=== PATIENT | male | born 1965 ===

== ENCOUNTER 2018-07-03 14:48 | Emergency (ER) | payer MEDICAID, OTHER ==
[2018-07-03 15:12] VITALS: BP 111/73; PULSE 92; RESP 20; TEMP 98.4; O2SAT 98
[2018-07-03] MEDS ORDERED: Piperacillin/Tazobact 4.5 GM in Sodium Chloride 0.9% 100 ML IVPB STA (15:39)
[2018-07-03] MEDS ORDERED: Vancomycin 1 g Inj ONE (16:00)
[2018-07-03] MEDS ORDERED: LIDOCAINE 2% 10ML 20 MG/ML VIAL IJ STA (16:00)
[2018-07-03 16:03] LABS: BASO # 0.1 K/uL (0.0-0.2); BASO % 0.5 % (0.0-2.0); EOS # 0.1 K/uL (0.0-0.7); EOS % 0.8 % (0.0-4.0); HEMOGLOBIN 14.2 g/dL (12.0-18.0); LYMPH # 1.9 K/uL (1.0-4.3); LYMPH % 14.1 % (20.0-40.0); MEAN CELL VOLUME 89.4 fl (80.0-94.0); MEAN CORPUSCULAR HEMOGLOBIN 29.8 pg (27.0-31.0); MEAN CORPUSCULAR HGB CONC 33.3 g/dL (33.0-37.0); MEAN PLATELET VOLUME 7.4 fl (7.2-11.7); MONO # 1.2 K/uL (0.0-0.8); MONO % 9.1 % (0.0-10.0); NEUT # 9.9 K/uL (1.8-7.0); NEUT % 75.5 % (50.0-75.0); RBC 4.77 Mil/uL (4.40-5.90); RED CELL DISTRIBUTION WIDTH 12.9 % (11.5-14.5); WHITE BLOOD COUNT 13.2 K/uL (4.8-10.8)
[2018-07-03] MEDS ORDERED: Lidocaine PF 2% (5 ml) Inj (For Cardiac Arrhy) ONE (16:04)
[2018-07-03 16:11] LABS: URINE BILIRUBIN NEGATIVE (NEGATIVE); URINE BLOOD NEGATIVE (NEGATIVE); URINE CLARITY SLIGHTY-CLOUDY (Clear); URINE COLOR YELLOW (YELLOW); URINE GLUCOSE (UA) NEG (Normal); URINE LEUKOCYTE ESTERASE NEG Leu/uL (Negative); URINE PROTEIN 30 mg/dL (NEGATIVE)
[2018-07-03 16:12] LABS: ALB/GLOB RATIO 1.1 (1.0-2.1); ALBUMIN 3.8 g/dL (3.5-5.0); ALT/SGPT 34 U/L (21-72); AST/SGOT 30 U/L (17-59); BLOOD UREA NITROGEN 23 mg/dl (9-20); CALCIUM 8.8 mg/dL (8.4-10.2); GFR NON-AFRICAN AMERICAN > 60
--- NOTE | 2018-07-03 16:24 | ED PDOC ---
HPI: General Adult Time Seen by Provider: 07/03/18 15:30 Chief Complaint (Nursing): Abnormal Skin Integrity Chief Complaint (Provider): R buttock pain, drainage History Per: Patient History/Exam Limitations: no limitations Onset/Duration Of Symptoms: Days (2 weeks) Current Symptoms Are (Timing): Still Present Severity: Moderate Additional Complaint(s): 53yo male c/o pain swelling and drainage to R buttock ongoing almost 2 weeks. States had fever 102 last night. Denies rectal pain or pain w defecation. Denies weakness, other skin abscesses or history of skin problems other than hemorrhoids. Also requesting testing for prostate given urinary hesitancy and told in past has prostate issues. Denies hx HIV testing. Past Medical History Reviewed: Historical Data, Nursing Documentation, Vital Signs Vital Signs: Last Vital Signs Temp 98.4 F 07/03/18 15:12 Pulse 92 H 07/03/18 15:12 Resp 20 07/03/18 15:12 BP 111/73 07/03/18 15:12 Pulse Ox 98 07/03/18 16:26 - Medical History PMH: Benign Prostatic Hyperplasia, Hypercholesterolemia, Hyperlipidemia Denies: Chronic Kidney Disease - Surgical History Surgical History: No Surg Hx - Family History Family History: States: Unknown Family Hx - Social History Current smoker - smoking cessation education provided: Yes - Immunization History Hx Tetanus Toxoid Vaccination: Yes Hx Influenza Vaccination: No Hx Pneumococcal Vaccination: No - Home Medications Home Medications: Ambulatory Orders Medication Instructions Recorded Acetaminophen with Codeine 1 tab PO Q8H #10 tab 12/13/16 [Tylenol with Codeine No. 3 300 mg-30 mg] Docusate [Colace] 100 mg PO DAILY #10 cap 12/13/16 Hydrocortisone 2.5% (Rectal) 30 applic [place] BID #1 tube 12/13/16 [Anusol-HC] Clotrimazole 1% Cream [Lotrimin 1%] 30 applic EXT BID #1 tube 07/03/18 Ibuprofen [Motrin Tab] 600 mg PO Q6 PRN #15 tab 07/03/18 Ciprofloxacin [Cipro] 500 mg PO BID #20 tab 07/06/18 Sulfamethoxazole/Trimethoprim 1 tab PO BID #10 tab 07/06/18 [Bactrim DS 800 mg-160 mg] - Allergies Allergies/Adverse Reactions: Allergies Allergy/AdvReac Type Severity Reaction Status Date / Time Peaches Allergy ITCHING Uncoded 07/05/18 17:55 Review of Systems Constitutional: Positive for: Fever, Chills Cardiovascular: Negative for: Chest Pain Respiratory: Negative for: Shortness of Breath Gastrointestinal: Negative for: Abdominal Pain Genitourinary Male: Positive for: Frequency. Negative for: Dysuria, Hematuria, Rash, Penile Pain Musculoskeletal: Positive for: Other (buttock pain). Negative for: Neck Pain, Back Pain Skin: Positive for: Rash (buttock/ pain/ swelling). Negative for: Jaundice, Bruising Neurological: Negative for: Weakness, Numbness, Dizziness Psych: Negative for: Depression Physical Exam - Reviewed Nursing Documentation Reviewed: Yes Vital Signs Reviewed: Yes - Physical Exam Appears: Positive for: Well, Non-toxic Head Exam: Positive for: ATRAUMATIC Cardiovascular/Chest: Negative for: Tachycardia Respiratory: Negative for: Respiratory Distress Rectal: Positive for: Other (neg external hemrroids, R buttock draining 5cm area induration and tenderness no fluctuance) Extremity: Positive for: Normal ROM. Negative for: Tenderness Neurologic/Psych: Positive for: Alert, Oriented. Negative for: Motor/Sensory Deficits - Laboratory Results Result Diagrams: 07/03/18 15:58 07/03/18 15:58 - ECG O2 Sat by Pulse Oximetry: 98 Medical Decision Making Medical Decision Making: check labs, irrigate and I&D wound to probe for loculations wound culture obtained Initiate broad spectrum Abx. Check HIV status Check PSA given urinary complaints Procedures - Time-Out Type of Procedure: I&D Site of Procedure: buttock Correct Patient (with visual ID + MR# on ID Band): Yes Correct Procedure: Yes Physician Name: tirso - Incision and Drainage Blade Size: 11 I & D Procedure: betadine prep, sterile drapes applied, gauze wick placed Progress: verbal consent obtained prior to procedure lidocaine used for anesthesia wound probed to break loculations and packed, wound care check in 2 days initiate clinda Disposition - Clinical Impression Clinical Impression: Abscess of buttock, Rash - Patient ED Disposition Is Patient to be Admitted: No Counseled Patient/Family Regarding: Studies Performed, Diagnosis, Need For Followup, Rx Given - Disposition Referrals: Franco Macias MD [Staff Provider] - Disposition: Routine/Home Disposition Time: 18:30 Condition: STABLE Additional Instructions: Return for packing removal and wound check in 2 days. Take antibiotics as directed. Followup with PMD also. Cultures will return in 2 days, you may need your antibiotics adjusted. Prescriptions: Clotrimazole 1% Cream [Lotrimin 1%] 30 applic EXT BID #1 tube Ibuprofen [Motrin Tab] 600 mg PO Q6 PRN #15 tab PRN Reason: Pain, Moderate (4-7) Instructions: Abscess Incision and Drainage Forms: [facility] [employer] (Khmer)
[2018-07-03] MEDS ORDERED: Naproxen 500 MG TAB PO STA (19:29)
[2018-07-03] MEDS ORDERED: Naproxen 500 MG TAB PO ONE (19:32)
== END 2018-07-03 20:36 | disposition home or self-care (01) ==
LOC: H.ER 14:48
DX: L02.31 Cutaneous abscess of buttock (principal); R21 Rash and other nonspecific skin eruption; F17.200 Nicotine dependence, unspecified, uncomplicated; N40.1 Benign prostatic hyperplasia with lower urinary tract symptoms; E78.00 Pure hypercholesterolemia, unspecified
CPT/HCPCS: 10060; 80053; 81003; 84153; 85025; 87070; 87181; 87390; 96365; 96367; 99282; J2543

== ENCOUNTER 2018-07-05 17:40 | Inpatient (IN) | payer MEDICAID, SELFPAY ==
[2018-07-05] MEDS ORDERED: Oxycodone/Acetaminophen 5/325 mg Tab PO STA (19:00)
[2018-07-05] MEDS ORDERED: Piperacillin/Tazobact 3.375 GM in Sodium Chloride 0.9% 100 ML IV STA (19:16)
--- NOTE | 2018-07-05 19:35 | ED PDOC ---
HPI: General Adult Chief Complaint (Provider): Wound check History Per: Patient <Shilpa Meade - Last Filed: 07/05/18 19:52> <Therese Marie - Last Filed: 07/06/18 13:51> Time Seen by Provider: 07/05/18 18:30 Chief Complaint (Nursing): Abnormal Skin Integrity Additional Complaint(s): Juan M Whipple, a 53 year old male with no significant past medical history, presents to the emergency department for a wound check. Patient had an abscess incision and drainage performed by Dr. Cabral 2 days ago. Wound culture tests showed MRSA positive. Pt sent home with Clindamycin and naproxen. Additionally, Pt reports painless mass to b/l testicles that he is worried about. PMD: None provided (Rasheeda Meadeissa Eduardo) Past Medical History Reviewed: Historical Data, Nursing Documentation, Vital Signs - Medical History PMH: Benign Prostatic Hyperplasia, Hypercholesterolemia, Hyperlipidemia Denies: Chronic Kidney Disease - Family History Family History: States: Unknown Family Hx - Immunization History Hx Tetanus Toxoid Vaccination: Yes Hx Influenza Vaccination: No Hx Pneumococcal Vaccination: No <Shilpa Meade - Last Filed: 07/05/18 19:52> <Therese Marie - Last Filed: 07/06/18 13:51> Vital Signs: Last Vital Signs Temp 98.2 F 07/06/18 12:30 Pulse 76 07/06/18 12:30 Resp 18 07/06/18 12:30 BP 99/65 L 07/06/18 12:30 Pulse Ox 98 07/06/18 12:30 - Home Medications Home Medications: Ambulatory Orders Medication Instructions Recorded Acetaminophen with Codeine 1 tab PO Q8H #10 tab 12/13/16 [Tylenol with Codeine No. 3 300 mg-30 mg] Docusate [Colace] 100 mg PO DAILY #10 cap 12/13/16 Hydrocortisone 2.5% (Rectal) 30 applic [place] BID #1 tube 12/13/16 [Anusol-HC] Clotrimazole 1% Cream [Lotrimin 1%] 30 applic EXT BID #1 tube 07/03/18 Ibuprofen [Motrin Tab] 600 mg PO Q6 PRN #15 tab 07/03/18 Ciprofloxacin [Cipro] 500 mg PO BID #20 tab 07/06/18 Sulfamethoxazole/Trimethoprim 1 tab PO BID #10 tab 07/06/18 [Bactrim DS 800 mg-160 mg] - Allergies Allergies/Adverse Reactions: Allergies Allergy/AdvReac Type Severity Reaction Status Date / Time Peaches Allergy ITCHING Uncoded 07/05/18 17:55 Review of Systems ROS Statement: Except As Marked, All Systems Reviewed And Found Negative Skin: Positive for: Other (I&D preformed 2 days ago) <Rasheeda Meadeissa A - Last Filed: 07/05/18 19:52> Physical Exam - Reviewed Nursing Documentation Reviewed: Yes Vital Signs Reviewed: Yes - Physical Exam Appears: Positive for: Non-toxic, No Acute Distress Head Exam: Positive for: ATRAUMATIC, NORMAL INSPECTION, NORMOCEPHALIC Skin: Positive for: Normal Color, Warm, DRY Eye Exam: Positive for: EOMI, Normal appearance, PERRL Neck: Positive for: Normal, Painless ROM Cardiovascular/Chest: Positive for: Regular Rate, Rhythm Respiratory: Positive for: Normal Breath Sounds. Negative for: Respiratory Distress Gastrointestinal/Abdominal: Positive for: Normal Exam, Soft Neurologic/Psych: Positive for: Alert, Oriented <HeavenlyaRasheedaShilpa A - Last Filed: 07/05/18 19:52> <Therese Marie - Last Filed: 07/06/18 13:51> - Physical Exam Comments: Site of I&D is tender, erythema, packing in place and removed by provider, no drainage (Petronella,Shilpa A) - ECG O2 Sat by Pulse Oximetry: 98 (RA) Pulse Ox Interpretation: Normal <HeavenlyaShilpa A - Last Filed: 07/05/18 19:52> - Laboratory Results Result Diagrams: 07/05/18 19:50 07/05/18 19:50 <Therese Marie - Last Filed: 07/06/18 13:51> Medical Decision Making <HeavenlyaRasheedaShilpa A - Last Filed: 07/05/18 19:52> <Therese Marie - Last Filed: 07/06/18 13:51> Medical Decision Making: Time: 18:30 Initial Impression: wound check Initial Plan: --CMP --CBC w/differential --Morphine 2mg IV --Percocet 1 tab PO --Vancomycin 250 ml IV --Zosyn 100 ml IV --Blood culture Case endorsed to HAILEY Jaramillo at 1999 pending diagnostic review and re-eval Scribe Attestation: Documented by Yahaira Garcia, acting as a scribe for DUSTIN Mccall. Provider Scribe Attestation: All medical record entries made by the Scribe were at my direction and personally dictated by me. I have reviewed the chart and agree that the record accurately reflects my personal performance of the history, physical exam, medical decision making, and the department course for this patient. I have also personally directed, reviewed, and agree with the discharge instructions and disposition. (Shilpa Meade) Disposition - Patient ED Disposition Is Patient to be Admitted: Transfer of Care - Disposition Disposition: Transfer of Care Disposition Time: 19:58 <Shilpa Meade - Last Filed: 07/05/18 19:52> <Therese Marie - Last Filed: 07/06/18 13:51> - Clinical Impression Clinical Impression: Abscess, Sepsis - Disposition Condition: FAIR
[2018-07-05] MEDS ORDERED: Piperacillin/Tazobact 3.375 gm Inj IVPB ONE (20:07)
[2018-07-05] MEDS ORDERED: Vancomycin 1 g Inj ONE (20:08)
[2018-07-05 20:28] LABS: VENOUS BLOOD GAS BASE EXCESS 2.7 mmol/L (0.0-2.0); VENOUS BLOOD GAS PCO2 36 mmHg (40-60); VENOUS BLOOD GAS PO2 46 mm/Hg (30-55); VENOUS BLOOD PH 7.47 (7.32-7.43)
[2018-07-05 20:32] LABS: BASO % 0.4 % (0.0-2.0); EOS % 0.2 % (0.0-4.0); HEMOGLOBIN 14.3 g/dL (12.0-18.0); LYMPH # 1.1 K/uL (1.0-4.3); LYMPH % 10.3 % (20.0-40.0); MEAN CELL VOLUME 87.4 fl (80.0-94.0); MEAN CORPUSCULAR HEMOGLOBIN 30.4 pg (27.0-31.0); MEAN CORPUSCULAR HGB CONC 34.8 g/dL (33.0-37.0); MONO # 0.6 K/uL (0.0-0.8); MONO % 5.9 % (0.0-10.0); NEUT # 8.9 K/uL (1.8-7.0); NEUT % 83.2 % (50.0-75.0); RBC 4.7 Mil/uL (4.40-5.90); RED CELL DISTRIBUTION WIDTH 13.2 % (11.5-14.5); WHITE BLOOD COUNT 10.7 K/uL (4.8-10.8)
[2018-07-05 21:33] LABS: ALBUMIN 3.8 g/dL (3.5-5.0); ALT/SGPT 36 U/L (21-72); AST/SGOT 49 U/L (17-59); BLOOD UREA NITROGEN 19 mg/dl (9-20); CALCIUM 9.5 mg/dL (8.4-10.2); GFR AFRICAN-AMERICAN > 60; GFR NON-AFRICAN AMERICAN > 60
--- NOTE | 2018-07-05 22:10 | ED PDOC ---
- Laboratory Results Result Diagrams: 07/05/18 19:50 07/05/18 19:50 - ECG ECG: Positive for: Viewed By Me (reviewed by ED attending) ECG Rhythm: Positive for: Sinus Bradycardia (59bpm) O2 Sat by Pulse Oximetry: 98 (RA) - Radiology X-Ray: Viewed By Me X-Ray Interpretation: No Acute Disease - Progress ED Course And Treament: Case endorsed to chief writer from Deshaun HART pending labs, imaging EXAM: US Scrotum CLINICAL HISTORY: 53 years old, male; Signs and symptoms; Other: Small bump within scrotum; Additional info: Mass noted to b/l testicles by pt TECHNIQUE: Real-time ultrasound of the scrotum with color Doppler and image documentation. COMPARISON: No relevant prior studies available. FINDINGS: Right testicle: Unremarkable. No mass. No torsion. Left testicle: Unremarkable. No mass. No torsion. Epididymides: Small subcentimeter bilateral epididymal head cysts reflecting spermatoceles. Scrotum: Along the right scrotal wall, a 2.4 x 1.2 x 0.6 cm isoechoic nodule with internal hyperechoic foci at the area of interest is nonspecific. Small foci of vascularity is possible. Findings are indeterminate and neoplasm cannot be excluded. Clinical correlation recommended. Small left hydrocele. IMPRESSION: 1. Along the right scrotal wall, a 2.4 x 1.2 x 0.6 cm isoechoic nodule with internal hyperechoic foci at the area of interest is nonspecific. Small foci of vascularity is possible. Findings are indeterminate and neoplasm cannot be excluded. Clinical correlation recommended. 2. Small left hydrocele. Case discussed with Dr. Vanegas, hospitalist on-call, for admission for IV antibiotics secondary to failed outpatient treatment Disposition - Clinical Impression Clinical Impression: Abscess, Sepsis - POA Present On Arrival: None - Disposition Disposition: Admitted as In-Patient Disposition Time: 22:30 Condition: FAIR
--- NOTE | 2018-07-05 22:53 | CP.PCM.HP ---
History of Present Illness - History of Present Illness History of Present Illness: PMD: Clifford Arredondo Chief Complaint: Left Buttock Pain The patient was seen and examined in the ED with no family present HPI: 53 years old male with past medical hx of HLD, Diverticulitis, Hemorrhoides and now diagnosed 2 days ago with left Buttock abscess s/p Incision and drainage and discharged on Clindamycin. He returned to the ED today for a wound check, referring that he still has fever and chills and some pain to the region of the abscess. Results of the Blood culture drawn on grew Methicillin Resistant Staph. aureus and E. coli. He also referred painless mass to both testicles. PMH: HLD; BPH; Hemorrhoids;diverticulitis PSH: I&D of abscess to left buttock SH: Light smoker; No illegal drug use; No Alcohol FH: States: Unknown Family Hx Allergies: Cambria causes itching Medication: Reviewed Present on Admission - Present on Admission Any Indicators Present on Admission: No History of DVT/PE: No History of Uncontrolled Diabetes: No Urinary Catheter: No Decubitus Ulcer Present: No Review of Systems - Constitutional Constitutional: Chills, Fever. absent: Anorexia, Headache - EENT Eyes: Requires Corrective Lenses. absent: Blurred Vision, Floaters, Loss of Peripheral Vision Ears: absent: Decreased Hearing, Ear Discharge, Tinnitus Nose/Mouth/Throat: absent: Epistaxis, Nasal Congestion, Nasal Discharge, Sinus Pain, Sinus Pressure - Cardiovascular Cardiovascular: absent: Chest Pain, Dyspnea, Edema, Leg Edema - Respiratory Respiratory: absent: Cough, Hemoptysis, Wheezing, Stridor - Gastrointestinal Gastrointestinal: Constipation. absent: Diarrhea, Nausea, Vomiting - Genitourinary Genitourinary: absent: Dysuria, Flank Pain, Hematuria - Musculoskeletal Musculoskeletal: absent: Arthralgias, Back Pain, Muscle Weakness - Integumentary Integumentary: absent: Pruritus, Skin Ulcer, Sores, Striae, Unusual Bruising - Neurological Neurological: absent: Confusion, Dizziness, Focal Weakness, Headaches, Tingling - Psychiatric Psychiatric: absent: Anxiety, Depression, Panic Attacks - Endocrine Endocrine: absent: Palpitations, Polydipsia, Polyphagia, Polyuria - Hematologic/Lymphatic Hematologic: absent: Easy Bleeding, Easy Bruising Past Patient History - Past Medical History & Family History Past Medical History?: Yes - Past Social History Smoking Status: Light Smoker < 10 Cigarettes Daily Chewing Tobacco Use: No Cigar Use: No Alcohol: None Drugs: Denies - CARDIAC Hx Hypercholesterolemia: Yes - PULMONARY Hx Respiratory Disorders: No - NEUROLOGICAL Hx Neurological Disorder: No - HEENT Hx HEENT Problems: Yes Other/Comment: EYE GLASSES - RENAL Hx Chronic Kidney Disease: No - ENDOCRINE/METABOLIC Hx Endocrine Disorders: No - HEMATOLOGICAL/ONCOLOGICAL Hx Blood Disorders: No - INTEGUMENTARY Hx Dermatological Problems: No - MUSCULOSKELETAL/RHEUMATOLOGICAL Hx Musculoskeletal Disorders: Yes Hx Falls: Yes - GASTROINTESTINAL Hx Gastrointestinal Disorders: No - GENITOURINARY/GYNECOLOGICAL Hx Genitourinary Disorders: No - PSYCHIATRIC Hx Psychophysiologic Disorder: No Hx Substance Use: No - SURGICAL HISTORY Hx Surgeries: No - ANESTHESIA Hx Anesthesia: No Hx Anesthesia Reactions: No Hx Malignant Hyperthermia: No Meds Allergies/Adverse Reactions: Allergies Allergy/AdvReac Type Severity Reaction Status Date / Time Peaches Allergy ITCHING Uncoded 07/05/18 17:55 Physical Exam - Constitutional Appears: No Acute Distress - Head Exam Head Exam: ATRAUMATIC, NORMAL INSPECTION, NORMOCEPHALIC - Eye Exam Eye Exam: EOMI, Normal appearance Pupil Exam: NORMAL ACCOMODATION, PERRL - ENT Exam ENT Exam: Mucous Membranes Moist, Normal Exam - Neck Exam Neck exam: Positive for: Full Rom, Normal Inspection. Negative for: Lymphadenopathy, Tenderness - Respiratory Exam Respiratory Exam: Clear to Auscultation Bilateral. absent: Rales, Rhonchi, Wheezes - Cardiovascular Exam Cardiovascular Exam: REGULAR RHYTHM, RRR, +S1, +S2 - GI/Abdominal Exam GI & Abdominal Exam: Normal Bowel Sounds, Soft. absent: Mass, Organomegaly, Tenderness - Rectal Exam Additional comments: No visable external Hemorrhoids. - Extremities Exam Extremities exam: Positive for: full ROM, normal inspection. Negative for: calf tenderness, pedal edema - Back Exam Back exam: NORMAL INSPECTION. absent: CVA tenderness (L), CVA tenderness (R) - Neurological Exam Neurological exam: Alert, CN II-XII Intact, Oriented x3, Reflexes Normal - Psychiatric Exam Psychiatric exam: Normal Affect, Normal Mood - Skin Skin Exam: Dry, Warm Additional comments: Wound 1cm in length, dry, surrounded by erythema 8cm in diameter at the left buttock. The area is soft and tender to palpation. Results - Vital Signs Recent Vital Signs: Last Vital Signs Temp 99.1 F 07/05/18 22:03 Pulse 99 H 07/05/18 17:53 Resp 16 07/05/18 17:53 BP 137/72 07/05/18 17:53 Pulse Ox 98 07/05/18 22:10 - Labs Result Diagrams: 07/05/18 19:50 07/05/18 19:50 Labs: Laboratory Results - last 24 hr 07/05/18 07/05/18 07/05/18 19:50 19:50 20:20 WBC 10.7 RBC 4.70 Hgb 14.3 Hct 41.1 MCV 87.4 D MCH 30.4 MCHC 34.8 RDW 13.2 Plt Count 366 MPV 8.0 Neut % (Auto) 83.2 H Lymph % (Auto) 10.3 L Braxton % (Auto) 5.9 Eos % (Auto) 0.2 Baso % (Auto) 0.4 Neut # (Auto) 8.9 H Lymph # (Auto) 1.1 Braxton # (Auto) 0.6 Eos # (Auto) 0.0 Baso # (Auto) 0.0 pO2 46 VBG pH 7.47 H VBG pCO2 36 L VBG HCO3 26.7 VBG Total CO2 27.3 VBG O2 Sat (Calc) 79.2 H VBG Base Excess 2.7 H VBG Potassium 4.4 Glucose 89 Lactate 1.1 FiO2 21.0 Sodium 136 134.0 Potassium 4.1 Chloride 102 102.0 Carbon Dioxide 24 Anion Gap 14 BUN 19 Creatinine 0.7 L Est GFR ( Amer) > 60 Est GFR (Non-Af Amer) > 60 Random Glucose 91 Calcium 9.5 Total Bilirubin 0.4 AST 49 ALT 36 Alkaline Phosphatase 74 Total Protein 7.7 Albumin 3.8 Globulin 3.9 Albumin/Globulin Ratio 1.0 Venous Blood Potassium 4.4 - Imaging and Cardiology Scrotum US Status: Report reviewed by me Additional comment: EXAM: US Scrotum CLINICAL HISTORY: 53 years old, male; Signs and symptoms; Other: Small bump within scrotum; Additional info: Mass noted to b/l testicles by pt TECHNIQUE: Real-time ultrasound of the scrotum with color Doppler and image documentation. COMPARISON: No relevant prior studies available. FINDINGS: Right testicle: Unremarkable. No mass. No torsion. Left testicle: Unremarkable. No mass. No torsion. Epididymides: Small subcentimeter bilateral epididymal head cysts reflecting spermatoceles. Scrotum: Along the right scrotal wall, a 2.4 x 1.2 x 0.6 cm isoechoic nodule with internal hyperechoic foci at the area of interest is nonspecific. Small foci of vascularity is possible. Findings are indeterminate and neoplasm cannot be excluded. Clinical correlation recommended. Small left hydrocele. IMPRESSION: 1. Along the right scrotal wall, a 2.4 x 1.2 x 0.6 cm isoechoic nodule with internal hyperechoic foci at the area of interest is nonspecific. Small foci of vascularity is possible. Findings are indeterminate and neoplasm cannot be excluded. Clinical correlation recommended. 2. Small left hydrocele. Assessment & Plan - Assessment and Plan (Free Text) Assessment: #. MRSA Cellulitis with Abscess Plan: 53 years old male with past medical hx of HLD, Diverticulitis, Hemorrhoides and now diagnosed 2 days ago with left Buttock abscess s/p Incision and drainage and discharged on Clindamycin. He is admitted because of failure of outpatient treatment. #. MRSA Cellulitis with Abscess and failure of outpatient management - Consult ID Dr Shine - Repeat Blood Cultures - Vancomycin for The MRSA - Ciprofloxacin for the E. coli and the MRSA grown in the wound - Pain management - Wound Care nurse consult #. Internal Hemorrhoides - Stool softener - Pain management - Anusol - Sitz bath when available #. Stress Ulcer prophylaxis with Pantoprazole #. DVT Prophylaxis with Lovenox #. Code Status: Full
[2018-07-05] MEDS ORDERED: Magnesium Hydroxide Susp 30 ml UD PO PRN (23:40)
[2018-07-06] MEDS ORDERED: Pneumococcal 23-Valent Vaccine IM ONE (06:00)
--- NOTE | 2018-07-06 07:33 | CARD ---
APPROVED REPORT Date of service: 07/06/2018 <Conclusion> Sinus bradycardia Otherwise normal ECG
--- NOTE | 2018-07-06 08:24 | RAD ---
Date of service: 07/06/2018 HISTORY: admit COMPARISON: No prior. FINDINGS: LUNGS: The lungs are well inflated and clear. PLEURA: No significant pleural effusion identified, no pneumothorax apparent. CARDIOVASCULAR: Normal. OSSEOUS STRUCTURES: No significant abnormalities. VISUALIZED UPPER ABDOMEN: Normal. OTHER FINDINGS: None. IMPRESSION: No active pulmonary disease.
[2018-07-06] MEDS ORDERED: Ciprofloxacin 400mg/200ml D5W 400 MG/200 ML BAG IVPB SCH (09:00)
--- NOTE | 2018-07-06 09:34 | CP.PCM.PN ---
Subjective - Date & Time of Evaluation Date of Evaluation: 07/06/18 Time of Evaluation: 09:34 - Subjective Subjective: Patient was seen at bedside this morning, he states that overnight he didn't sleep well due to the pain that he is experiencing from lying on a 1 cm R sided gluteal abscess. He states he had a fever last night (102.7) and was given antibiotics IV( Vanc + Cipro) switched from clinda due to (Positive Cx: MRSA + Ecoli) s/p incision and drainage last week and failed outpt tx, denies fevers now, chills, or night sweats. Patient states that he has a decreased appetite, increasing gas pains, and no bowel movement for 4 days. States 1 week ago when he did have a bowel movement he remembers some blood per rectum. States he has decreased urination denies hematuria or dysuria. 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 hx of smoking crack/cocaine- no recent use, Former smoker, Denies hx of STDs, tested for HIV last week was told results were negative Objective - Vital Signs/Intake and Output Vital Signs (last 24 hours): Temp Pulse Resp BP Pulse Ox 98.2 F 70 18 105/69 97 07/06/18 08:03 07/06/18 08:03 07/06/18 08:03 07/06/18 08:03 07/06/18 08:03 - Medications Medications: Current Medications Acetaminophen (Tylenol 325mg Tab) 650 mg PO Q6 PRN PRN Reason: Pain, Mild (1-3) Last Admin: 07/06/18 01:05 Dose: 650 mg Docusate Sodium (Colace) 100 mg PO BID SALMA Enoxaparin Sodium (Lovenox) 40 mg SC DAILY SALMA PRN Reason: Protocol Hydrocortisone (Anusol-Hc) 1 applic AL BID SALMA Vancomycin HCl 1 gm/ Sodium (Chloride) 250 mls @ 166.667 mls/hr IVPB Q12 SALMA PRN Reason: Protocol Ciprofloxacin (Cipro 400mg/200ml Dsw) 400 mg in 200 mls @ 200 mls/hr IVPB Q12 SALMA PRN Reason: Protocol Ibuprofen (Motrin Tab) 600 mg PO Q6 PRN PRN Reason: Pain, severe (8-10) Ibuprofen (Motrin Tab) 400 mg PO Q6 PRN PRN Reason: Pain, moderate (4-7) Magnesium Hydroxide (Milk Of Magnesia) 30 ml PO DAILY PRN PRN Reason: Constipation Pantoprazole Sodium (Protonix Ec Tab) 40 mg PO DAILY SALMA - Labs Labs: 07/05/18 19:50 07/05/18 19:50 - Constitutional Appears: Well, Non-toxic, No Acute Distress - Head Exam Head Exam: ATRAUMATIC, NORMAL INSPECTION, NORMOCEPHALIC - Eye Exam Eye Exam: EOMI, Normal appearance - ENT Exam ENT Exam: Mucous Membranes Moist - Neck Exam Neck Exam: Full ROM, Normal Inspection - Respiratory Exam Respiratory Exam: Clear to Ausculation Bilateral, NORMAL BREATHING PATTERN - Cardiovascular Exam Cardiovascular Exam: REGULAR RHYTHM, +S1, +S2 - GI/Abdominal Exam GI & Abdominal Exam: Soft, Normal Bowel Sounds - Rectal Exam Additional comments: No External hemorrhoids noted - Extremities Exam Extremities Exam: Full ROM, Normal Inspection - Neurological Exam Neurological Exam: Alert, Awake, Oriented x3 - Psychiatric Exam Psychiatric exam: Normal Affect - Skin Skin Exam: Erythema, Warm (R gluteal abscess pink, warm to touch, no induration or purulent drainage. Area around abscess slightly erythmatous.) Assessment and Plan (1) Abscess of buttock Assessment & Plan: -Infectious Disease will see Pt today Dr. Shine. -Gave patient Rx for Cipro and Bactrium to contintue as Outpt -D/C today patient doing well -Gave Pt ER precautions if Fever comes back Status: Acute (2) Internal hemorrhoid Assessment & Plan: - Gave patient Milk of Magnesia - SITS baths - Avoid medications that can cause constipation such as opiates - Increase fiber intake, prune juice, decrease fried fatty foods - Stool softener- Docustate - Follow up with surgical team in clinic Dr. Arredondo Status: Acute (3) DVT prophylaxis Assessment & Plan: - Lovenox Status: Acute
[2018-07-06] MEDS: Pantoprazole 40 mg EC Tab PO SCH (09:49)
[2018-07-06] MEDS: Enoxaparin 40 mg Syringe SC SCH (09:49)
--- NOTE | 2018-07-06 11:36 | US ---
Date of service: 07/05/2018 HISTORY: mass noted to b/l testicles by PT TECHNIQUE: Realtime sonography through the scrotum with color and doppler flow. COMPARISON: None Available. FINDINGS: RIGHT TESTICLE: Measures 4.1 x 2.8 x 2.0 cm. Normal echotexture and flow. RIGHT EPIDIDYMIS: Epididymal head measures 0.8 x 1.0 x 0.8 cm. There is a 2 x 3 x 3 mm simple cyst in the head of the epididymis and 9 x 8 x 8 mm cyst with internal echoes in the head of the epididymis. The remaining epididymis is normal in 3.8 x 2.9 x 2.0 appearance with normal flow. LEFT TESTICLE: Measures cm. Normal echotexture and flow. LEFT EPIDIDYMIS: Epididymal head measures 1.0 x 0.7 x 0.6 cm. There are 2 subcentimeter simple cysts, the larger measures 2 x 2 x 2 mm. Grossly unremarkable appearance with normal flow. HYDROCELE: None. VARICOCELE: None. OTHER FINDINGS: There is a 2.4 x 1.2 x 0.6 cm well-circumscribed ovoid hypoechoic nodule with smooth margins without central flow on color Doppler imaging in the right scrotal wall at the site of clinically palpable lump. IMPRESSION: 1. 2.4 x 1.2 x 0.6 cm nodule in the right scrotal wall at the site of clinically palpable lump is nonspecific, the differential considerations include chronic inflammatory pseudotumor, fibrous tumor, benign and malignant neoplasms. Histopathologic correlation is advised. 2. No evidence for testicular mass or torsion. 3. Subcentimeter cyst in the head of both epididymis, the largest complicated cyst on the right measures 9 mm. A preliminary report was provided by [facility].
[2018-07-06] MEDS: Hydrocortisone 2.5% (Rectal) CREAM PR SCH ×2 (12:23→17:37)
[2018-07-06 14:00] LABS: BASO % 0.5 % (0.0-2.0); EOS % 0.5 % (0.0-4.0); LYMPH # 1.3 K/uL (1.0-4.3); LYMPH % 14.2 % (20.0-40.0); MEAN CELL VOLUME 88.3 fl (80.0-94.0); MEAN CORPUSCULAR HEMOGLOBIN 29.8 pg (27.0-31.0); MEAN CORPUSCULAR HGB CONC 33.8 g/dL (33.0-37.0); MEAN PLATELET VOLUME 7.7 fl (7.2-11.7); MONO # 0.6 K/uL (0.0-0.8); MONO % 6.4 % (0.0-10.0); NEUT # 7.2 K/uL (1.8-7.0); NEUT % 78.4 % (50.0-75.0); RBC 4.37 Mil/uL (4.40-5.90); RED CELL DISTRIBUTION WIDTH 12.7 % (11.5-14.5); WHITE BLOOD COUNT 9.2 K/uL (4.8-10.8)
--- NOTE | 2018-07-06 19:11 | CP.PCM.CON ---
History of Present Illness - History of Present Illness History of Present Illness: 53 years old male diagnosed 2 days ago with left Buttock abscess s/p Incision and drainage and discharged on Clindamycin. He returned to the ED today for a wound check, referring that he still has fever and chills and some pain to the region of the abscess. Results of the Blood culture drawn on grew Methicillin Resistant Staph. aureus and E. coli. He also referred painless mass to both testicles. ID consult requested for transition to oral regimen however patient having hi fever and chills at this time with benign appearing abscess site on buttock PMH: HLD; BPH; Hemorrhoids;diverticulitis PSH: I&D of abscess to left buttock SH: Light smoker; No illegal drug use; No Alcohol FH: States: Unknown Family Hx Allergies: Smyth causes itching Medication: Reviewed Review of Systems - Constitutional Constitutional: Chills, Fever. absent: Anorexia, Headache - EENT Eyes: Requires Corrective Lenses. absent: Blurred Vision, Floaters, Loss of Peripheral Vision Ears: absent: Decreased Hearing, Ear Discharge, Tinnitus Nose/Mouth/Throat: absent: Epistaxis, Nasal Congestion, Nasal Discharge, Sinus Pain, Sinus Pressure - Cardiovascular Cardiovascular: absent: Chest Pain, Dyspnea, Edema, Leg Edema - Respiratory Respiratory: absent: Cough, Hemoptysis, Wheezing, Stridor - Gastrointestinal Gastrointestinal: Constipation. absent: Diarrhea, Nausea, Vomiting - Genitourinary Genitourinary: absent: Dysuria, Flank Pain, Hematuria - Musculoskeletal Musculoskeletal: absent: Arthralgias, Back Pain, Muscle Weakness - Integumentary Integumentary: absent: Pruritus, Skin Ulcer, Sores, Striae, Unusual Bruising - Neurological Neurological: absent: Confusion, Dizziness, Focal Weakness, Headaches, Tingling - Psychiatric Psychiatric: absent: Anxiety, Depression, Panic Attacks - Endocrine Endocrine: absent: Palpitations, Polydipsia, Polyphagia, Polyuria - Hematologic/Lymphatic Hematologic: absent: Easy Bleeding, Easy Bruising Past Patient History - Past Medical History & Family History Past Medical History?: Yes - Past Social History Smoking Status: Former Smoker - CARDIAC Hx Hypercholesterolemia: Yes - PULMONARY Hx Respiratory Disorders: No - NEUROLOGICAL Hx Neurological Disorder: No - HEENT Hx HEENT Problems: Yes Other/Comment: EYE GLASSES - RENAL Hx Chronic Kidney Disease: No - ENDOCRINE/METABOLIC Hx Endocrine Disorders: No - HEMATOLOGICAL/ONCOLOGICAL Hx Blood Disorders: No - INTEGUMENTARY Hx Dermatological Problems: No - MUSCULOSKELETAL/RHEUMATOLOGICAL Hx Musculoskeletal Disorders: Yes Hx Falls: Yes - GASTROINTESTINAL Hx Gastrointestinal Disorders: No - GENITOURINARY/GYNECOLOGICAL Hx Genitourinary Disorders: No - PSYCHIATRIC Hx Psychophysiologic Disorder: No Hx Substance Use: No - SURGICAL HISTORY Hx Surgeries: No - ANESTHESIA Hx Anesthesia: No Hx Anesthesia Reactions: No Hx Malignant Hyperthermia: No Meds Home Medications: Home Medication List Medication Instructions Recorded Confirmed Type Ciprofloxacin [Cipro] 500 mg PO BID #20 tab 07/06/18 Rx Sulfamethoxazole/Trimethoprim 1 tab PO BID #10 tab 07/06/18 Rx [Bactrim DS 800 mg-160 mg] Allergies/Adverse Reactions: Allergies Allergy/AdvReac Type Severity Reaction Status Date / Time [place] Allergy ITCHING Uncoded 07/05/18 17:55 - Medications Medications: Current Medications Acetaminophen (Tylenol 325mg Tab) 650 mg PO Q6 PRN PRN Reason: Pain, Mild (1-3) Last Admin: 07/06/18 18:35 Dose: 650 mg Docusate Sodium (Colace) 100 mg PO BID [facility] Last Admin: 07/06/18 17:38 Dose: Not Given Enoxaparin Sodium (Lovenox) 40 mg SC DAILY [facility] PRN Reason: Protocol Last Admin: 07/06/18 09:49 Dose: 40 mg Hydrocortisone (Anusol-Hc) 1 applic CA BID [facility] Last Admin: 07/06/18 17:37 Dose: 1 applic Vancomycin HCl 1 gm/ Sodium (Chloride) 250 mls @ 166.667 mls/hr IVPB Q12 [facility] PRN Reason: Protocol Last Admin: 07/06/18 09:48 Dose: 166.667 mls/hr Ciprofloxacin (Cipro 400mg/200ml Dsw) 400 mg in 200 mls @ 200 mls/hr IVPB Q12 [facility] PRN Reason: Protocol Last Admin: 07/06/18 12:22 Dose: 200 mls/hr Ibuprofen (Motrin Tab) 600 mg PO Q6 PRN PRN Reason: Pain, severe (8-10) Last Admin: 07/06/18 11:13 Dose: 600 mg Ibuprofen (Motrin Tab) 400 mg PO Q6 PRN PRN Reason: Pain, moderate (4-7) Magnesium Hydroxide (Milk Of Magnesia) 30 ml PO DAILY PRN PRN Reason: Constipation Last Admin: 07/06/18 09:52 Dose: 30 ml Pantoprazole Sodium (Protonix Ec Tab) 40 mg PO DAILY [facility] Last Admin: 07/06/18 09:49 Dose: 40 mg Physical Exam - Constitutional Appears: Toxic, In Acute Distress, Chronically Ill - Head Exam Head Exam: ATRAUMATIC, NORMOCEPHALIC - Eye Exam Eye Exam: PERRL - ENT Exam ENT Exam: Mucous Membranes Dry - Neck Exam Neck exam: Negative for: Lymphadenopathy - Respiratory Exam Respiratory Exam: Decreased Breath Sounds - Cardiovascular Exam Cardiovascular Exam: REGULAR RHYTHM - GI/Abdominal Exam GI & Abdominal Exam: Diminished Bowel Sounds, Distended, Soft, Tenderness. absent: Guarding, Rebound, Rigid - Rectal Exam Rectal Exam: Deferred - Exam Exam: NORMAL INSPECTION - Extremities Exam Extremities exam: Positive for: pedal pulses present. Negative for: calf tenderness, pedal edema, tenderness - Back Exam Back exam: absent: CVA tenderness (L), CVA tenderness (R) - Neurological Exam Neurological exam: Alert, CN II-XII Intact, Oriented x3, Reflexes Normal - Psychiatric Exam Psychiatric exam: Normal Mood - Skin Skin Exam: Dry Additional comments: wound appears clean and dry Results - Vital Signs Recent Vital Signs: Last Vital Signs Temp 100.8 F H 07/06/18 18:35 Pulse 97 H 07/06/18 18:23 Resp 22 07/06/18 18:23 BP 145/85 07/06/18 18:23 Pulse Ox 99 07/06/18 18:23 - Labs Result Diagrams: 07/06/18 12:45 07/05/18 19:50 Labs: Laboratory Results - last 24 hr 07/05/18 07/05/18 07/05/18 19:50 19:50 20:20 WBC 10.7 RBC 4.70 Hgb 14.3 Hct 41.1 MCV 87.4 D MCH 30.4 MCHC 34.8 RDW 13.2 Plt Count 366 MPV 8.0 Neut % (Auto) 83.2 H Lymph % (Auto) 10.3 L [place] % (Auto) 5.9 Eos % (Auto) 0.2 Baso % (Auto) 0.4 Neut # (Auto) 8.9 H Lymph # (Auto) 1.1 [place] # (Auto) 0.6 Eos # (Auto) 0.0 Baso # (Auto) 0.0 pO2 46 VBG pH 7.47 H VBG pCO2 36 L VBG HCO3 26.7 VBG Total CO2 27.3 VBG O2 Sat (Calc) 79.2 H VBG Base Excess 2.7 H VBG Potassium 4.4 Glucose 89 Lactate 1.1 FiO2 21.0 Sodium 136 134.0 Potassium 4.1 Chloride 102 102.0 Carbon Dioxide 24 Anion Gap 14 BUN 19 Creatinine 0.7 L Est GFR ( Amer) > 60 Est GFR (Non-Af Amer) > 60 Random Glucose 91 Calcium 9.5 Total Bilirubin 0.4 AST 49 ALT 36 Alkaline Phosphatase 74 Total Protein 7.7 Albumin 3.8 Globulin 3.9 Albumin/Globulin Ratio 1.0 Venous Blood Potassium 4.4 07/06/18 12:45 WBC 9.2 RBC 4.37 L Hgb 13.0 Hct 38.6 MCV 88.3 MCH 29.8 MCHC 33.8 RDW 12.7 Plt Count 368 MPV 7.7 Neut % (Auto) 78.4 H Lymph % (Auto) 14.2 L [place] % (Auto) 6.4 Eos % (Auto) 0.5 Baso % (Auto) 0.5 Neut # (Auto) 7.2 H Lymph # (Auto) 1.3 [place] # (Auto) 0.6 Eos # (Auto) 0.0 Baso # (Auto) 0.0 pO2 VBG pH VBG pCO2 VBG HCO3 VBG Total CO2 VBG O2 Sat (Calc) VBG Base Excess VBG Potassium Glucose Lactate FiO2 Sodium Potassium Chloride Carbon Dioxide Anion Gap BUN Creatinine Est GFR ( Amer) Est GFR (Non-Af Amer) Random Glucose Calcium Total Bilirubin AST ALT Alkaline Phosphatase Total Protein Albumin Globulin Albumin/Globulin Ratio Venous Blood Potassium Assessment & Plan (1) Sepsis Status: Acute (2) Abscess of buttock Status: Acute (3) Failure of outpatient treatment Status: Acute - Assessment and Plan (Free Text) Assessment: persitent fever s/p drainage of abscess while on appropriate IV antibiotics consider occult abscess drug fever and malignancy less likely recc: repeat blood cultures if fever persists consider CT abd/ pelvis, echocardiogram, eval
[2018-07-06] MEDS: Ciprofloxacin 400mg/200ml D5W 400 MG/200 ML BAG IVPB SCH (22:42)
[2018-07-07 06:25] LABS: SQUAMOUS EPITHIAL < 1 /hpf (0-5); URINE BILIRUBIN NEGATIVE (NEGATIVE); URINE BLOOD SMALL (NEGATIVE); URINE CLARITY SLIGHTY-CLOUDY (Clear); URINE COLOR YELLOW (YELLOW); URINE GLUCOSE (UA) NEG (Normal); URINE LEUKOCYTE ESTERASE NEG Leu/uL (Negative); URINE PROTEIN NEGATIVE (NEGATIVE); URINE UROBILINOGEN 0.2-1.0 mg/dL (0.2-1.0)
--- NOTE | 2018-07-07 08:13 | CP.PCM.PN ---
<DenisGloria - Last Filed: 07/07/18 11:39> Subjective - Date & Time of Evaluation Date of Evaluation: 07/07/18 Time of Evaluation: 08:13 - Subjective Subjective: Patient was seen at bedside this morning, he states that overnight he didn't sleep well, at 6:30pm he spiked a fever, had shaking, chills, and confusion. T: 100.8, denies any spiked fevers, chills, shaking this morning (T. 97.9). Patient has a decreased appetite denies any nausea or vomiting. Patient complains of a new elevated pimple located on the mid sacrum above the current 1cm R gluteal abscess which was warm and painful to touch. Patient also complains of painful hemorrhoids. Currently on antibiotics IV( Vanc- + Cipro) ( Positive Cx: MRSA + Ecoli), Blood Cx- pending. 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 hx of smoking crack/cocaine- no recent use, Former smoker, Denies hx of STDs, tested for HIV -neg Objective - Vital Signs/Intake and Output Vital Signs (last 24 hours): Temp Pulse Resp BP Pulse Ox 97.9 F 76 18 111/75 100 07/07/18 04:36 07/07/18 04:36 07/07/18 04:36 07/07/18 04:36 07/07/18 04:36 - Medications Medications: Current Medications Acetaminophen (Tylenol 325mg Tab) 650 mg PO Q6 PRN PRN Reason: Pain, Mild (1-3) Last Admin: 07/06/18 18:35 Dose: 650 mg Docusate Sodium (Colace) 100 mg PO BID [facility] Last Admin: 07/06/18 17:38 Dose: Not Given Enoxaparin Sodium (Lovenox) 40 mg SC DAILY [facility] PRN Reason: Protocol Last Admin: 07/06/18 09:49 Dose: 40 mg Hydrocortisone (Anusol-Hc) 1 applic [place] BID [facility] Last Admin: 07/06/18 17:37 Dose: 1 applic Ciprofloxacin (Cipro 400mg/200ml Dsw) 400 mg in 200 mls @ 200 mls/hr IVPB Q12 [facility] PRN Reason: Protocol Last Admin: 07/06/18 22:42 Dose: 200 mls/hr Vancomycin HCl 1 gm/ Sodium (Chloride) 250 mls @ 166.667 mls/hr IVPB Q12@0900, 2100 [facility] PRN Reason: Protocol Last Admin: 07/06/18 20:58 Dose: 166.667 mls/hr Ibuprofen (Motrin Tab) 600 mg PO Q6 PRN PRN Reason: Pain, severe (8-10) Last Admin: 07/06/18 11:13 Dose: 600 mg Ibuprofen (Motrin Tab) 400 mg PO Q6 PRN PRN Reason: Pain, moderate (4-7) Last Admin: 07/06/18 21:03 Dose: 400 mg Magnesium Hydroxide (Milk Of Magnesia) 30 ml PO DAILY PRN PRN Reason: Constipation Last Admin: 07/06/18 09:52 Dose: 30 ml Pantoprazole Sodium (Protonix Ec Tab) 40 mg PO DAILY [facility] Last Admin: 07/06/18 09:49 Dose: 40 mg - Labs Labs: 07/06/18 12:45 07/05/18 19:50 - Constitutional Appears: Well, Non-toxic, No Acute Distress - Head Exam Head Exam: ATRAUMATIC, NORMAL INSPECTION, NORMOCEPHALIC - Eye Exam Eye Exam: EOMI Pupil Exam: PERRL - ENT Exam ENT Exam: Mucous Membranes Moist - Neck Exam Neck Exam: Full ROM - Respiratory Exam Respiratory Exam: Clear to Ausculation Bilateral, NORMAL BREATHING PATTERN - Cardiovascular Exam Cardiovascular Exam: RRR, +S1, +S2 - GI/Abdominal Exam GI & Abdominal Exam: Soft, Normal Bowel Sounds - Rectal Exam Rectal Exam: NORMAL INSPECTION - Extremities Exam Extremities Exam: Normal Inspection - Skin Skin Exam: Erythema (1cm R gluteal abscess pink, warm to touch, no induration or purulent drainage. Area around abscess slightly erythmatous. Also has a new pimple mid sacrum- warm, hard, painful on palpation) Assessment and Plan (1) Abscess of buttock Assessment & Plan: - Infectious Dz consulted- Dr. Shine- recommends F/u blood cx tomorrow and possible CT of abdomen and pelvis. - Continue IV abx- Vanc and Cipro, monitor Vanc Trough - Monitor any changes is new sacral pimple - Monitor any fluctuations in Temp, control pain - F/u Influenza A + B, procalcitonin, CBC, BMP Urine Cx in AM Status: Acute (2) Internal hemorrhoid Assessment & Plan: -Continue Anusol 2.5% Rectally BID - Milk of Magnesian, Docusate PRN constipation - Sittz baths - Increase fiber intake, prune juice, decrease fried fatty foods - Follow up with surgical team in clinic on D/c- Dr. Arredondo Status: Acute (3) DVT prophylaxis Assessment & Plan: -Continue Lovenox - Protonix- Stress ulcer PPx Status: Acute <Daniella Rojas - Last Filed: 07/11/18 09:09> Objective - Vital Signs/Intake and Output Vital Signs (last 24 hours): Temp Pulse Resp BP Pulse Ox 97.8 F 94 H 20 101/67 98 07/10/18 16:15 07/10/18 16:15 07/10/18 16:15 07/10/18 16:15 07/10/18 16:15 - Labs Labs: 07/10/18 05:05 07/10/18 05:05 Attending/Attestation - Attestation I have personally seen and examined this patient.: Yes I have fully participated in the care of the patient.: Yes I have reviewed all pertinent clinical information, including history, physical exam and plan: Yes Notes (Text): 07/11/18 09:09 Seen, examined, and discussed with resident. Agree with findings and plan as above.
[2018-07-07] MEDS: Hydrocortisone 2.5% (Rectal) CREAM PR SCH ×2 (09:20→18:16)
[2018-07-07] MEDS: Ciprofloxacin 400mg/200ml D5W 400 MG/200 ML BAG IVPB SCH ×2 (09:20→22:01)
[2018-07-07] MEDS: Pantoprazole 40 mg EC Tab PO SCH (09:21)
[2018-07-07] MEDS: Enoxaparin 40 mg Syringe SC SCH (09:21)
[2018-07-07 11:08] LABS: BASO % 0.4 % (0.0-2.0); EOS % 0.4 % (0.0-4.0); HEMOGLOBIN 13.4 g/dL (12.0-18.0); LYMPH # 1.5 K/uL (1.0-4.3); LYMPH % 13.8 % (20.0-40.0); MEAN CELL VOLUME 89.1 fl (80.0-94.0); MEAN CORPUSCULAR HEMOGLOBIN 29.8 pg (27.0-31.0); MEAN CORPUSCULAR HGB CONC 33.4 g/dL (33.0-37.0); MEAN PLATELET VOLUME 7.3 fl (7.2-11.7); MONO # 0.6 K/uL (0.0-0.8); MONO % 5.5 % (0.0-10.0); NEUT # 8.5 K/uL (1.8-7.0); NEUT % 79.9 % (50.0-75.0); RBC 4.5 Mil/uL (4.40-5.90); RED CELL DISTRIBUTION WIDTH 12.8 % (11.5-14.5); WHITE BLOOD COUNT 10.6 K/uL (4.8-10.8)
[2018-07-07 11:16] LABS: BLOOD UREA NITROGEN 14 mg/dl (9-20); GFR AFRICAN-AMERICAN > 60; GFR NON-AFRICAN AMERICAN > 60
--- NOTE | 2018-07-07 20:12 | CP.PCM.PN ---
Subjective - Date & Time of Evaluation Date of Evaluation: 07/07/18 Time of Evaluation: 09:00 - Subjective Subjective: still spiking fevers c/o sore throat Objective - Vital Signs/Intake and Output Vital Signs (last 24 hours): Temp Pulse Resp BP Pulse Ox 98.9 F 88 20 114/72 98 07/07/18 19:48 07/07/18 19:48 07/07/18 19:48 07/07/18 19:48 07/07/18 19:48 - Medications Medications: Current Medications Acetaminophen (Tylenol 325mg Tab) 650 mg PO Q6 PRN PRN Reason: Pain, Mild (1-3) Last Admin: 07/06/18 18:35 Dose: 650 mg Acetaminophen (Tylenol 325mg Tab) 650 mg PO Q6 PRN PRN Reason: Temperature Last Admin: 07/07/18 18:18 Dose: 650 mg Benzocaine/Menthol (Cepacol Sore Throat) 1 jaziel PO Q3 PRN PRN Reason: Sore Throat Docusate Sodium (Colace) 100 mg PO BID [facility] Last Admin: 07/07/18 18:20 Dose: Not Given Enoxaparin Sodium (Lovenox) 40 mg SC DAILY [facility] PRN Reason: Protocol Last Admin: 07/07/18 09:21 Dose: 40 mg Hydrocortisone (Anusol-Hc) 1 applic [place] BID [facility] Last Admin: 07/07/18 18:16 Dose: 1 applic Ciprofloxacin (Cipro 400mg/200ml Dsw) 400 mg in 200 mls @ 200 mls/hr IVPB Q12 [facility] PRN Reason: Protocol Last Admin: 07/07/18 09:20 Dose: 200 mls/hr Vancomycin HCl 1 gm/ Sodium (Chloride) 250 mls @ 166.667 mls/hr IVPB Q12@0900, 2100 [facility] PRN Reason: Protocol Last Admin: 07/07/18 09:20 Dose: 166.667 mls/hr Ibuprofen (Motrin Tab) 600 mg PO Q6 PRN PRN Reason: Pain, severe (8-10) Last Admin: 07/06/18 11:13 Dose: 600 mg Ibuprofen (Motrin Tab) 400 mg PO Q6 PRN PRN Reason: Pain, moderate (4-7) Last Admin: 07/07/18 14:55 Dose: 400 mg Magnesium Hydroxide (Milk Of Magnesia) 30 ml PO DAILY PRN PRN Reason: Constipation Last Admin: 07/06/18 09:52 Dose: 30 ml Pantoprazole Sodium (Protonix Ec Tab) 40 mg PO DAILY [facility] Last Admin: 07/07/18 09:21 Dose: 40 mg - Labs Labs: 07/07/18 10:56 07/07/18 10:54 - Constitutional Appears: Non-toxic, Chronically Ill - Head Exam Head Exam: NORMOCEPHALIC - Eye Exam Eye Exam: absent: Scleral icterus - ENT Exam ENT Exam: Mucous Membranes Dry - Neck Exam Neck Exam: absent: Lymphadenopathy - Respiratory Exam Respiratory Exam: Decreased Breath Sounds - Cardiovascular Exam Cardiovascular Exam: REGULAR RHYTHM - GI/Abdominal Exam GI & Abdominal Exam: Distended - Rectal Exam Rectal Exam: Deferred - Exam Exam: NORMAL INSPECTION - Extremities Exam Extremities Exam: absent: Pedal Edema - Back Exam Back Exam: absent: CVA tenderness (L), CVA tenderness (R) Assessment and Plan (1) Sepsis Status: Acute (2) Abscess of buttock Status: Acute (3) Failure of outpatient treatment Status: Acute (4) Fever and chills Status: Acute (5) Fever and chills Status: Acute - Assessment and Plan (Free Text) Assessment: consider CT Abd/pelvis to r/o occult abscess will obtain echo to r/o vegetation await cultures blood
[2018-07-07] MEDS: Benzocaine/Menthol (Cepacol) Lozenge PO PRN (22:01)
[2018-07-08] MEDS: Benzocaine/Menthol (Cepacol) Lozenge PO PRN ×5 (04:56→20:51)
[2018-07-08 07:09] LABS: BASO # 0.1 K/uL (0.0-0.2); BASO % 0.3 % (0.0-2.0); EOS % 0.1 % (0.0-4.0); HEMOGLOBIN 14.9 g/dL (12.0-18.0); LYMPH # 1.5 K/uL (1.0-4.3); MEAN CELL VOLUME 87.7 fl (80.0-94.0); MEAN CORPUSCULAR HEMOGLOBIN 30.1 pg (27.0-31.0); MEAN CORPUSCULAR HGB CONC 34.3 g/dL (33.0-37.0); MEAN PLATELET VOLUME 7.5 fl (7.2-11.7); MONO # 1.4 K/uL (0.0-0.8); MONO % 8.4 % (0.0-10.0); NEUT # 13.6 K/uL (1.8-7.0); NEUT % 82.2 % (50.0-75.0); PLATELET COUNT 482 K/uL (130-400); RBC 4.96 Mil/uL (4.40-5.90); RED CELL DISTRIBUTION WIDTH 12.7 % (11.5-14.5); WHITE BLOOD COUNT 16.5 K/uL (4.8-10.8)
[2018-07-08 07:14] LABS: BLOOD UREA NITROGEN 15 mg/dl (9-20); CALCIUM 9.8 mg/dL (8.4-10.2); GFR AFRICAN-AMERICAN > 60; GFR NON-AFRICAN AMERICAN > 60
[2018-07-08] MEDS ORDERED: Iohexol 240 (50 ml) PO ONE (08:23)
--- NOTE | 2018-07-08 08:26 | CP.PCM.PN ---
Subjective - Date & Time of Evaluation Date of Evaluation: 07/08/18 Time of Evaluation: 10:45 - Subjective Subjective: Patient seen bedside. Complains of pain on the left arm deltoid muscle area where he had received Pneumococcus vacine injection 07/06 .As per patient pain to the arm is worse than perirectal discomfort and that he hardly can move the arm due to pain. Area appears red and a little swollen. Tmax 103 WBC 16.5 Procalcitonin 0.07 Objective - Vital Signs/Intake and Output Vital Signs (last 24 hours): Temp Pulse Resp BP Pulse Ox 98.2 F 82 18 115/71 100 07/08/18 05:00 07/08/18 05:00 07/08/18 05:00 07/08/18 05:00 07/08/18 05:00 - Medications Medications: Current Medications Acetaminophen (Tylenol 325mg Tab) 650 mg PO Q6 PRN PRN Reason: Pain, Mild (1-3) Last Admin: 07/06/18 18:35 Dose: 650 mg Acetaminophen (Tylenol 325mg Tab) 650 mg PO Q6 PRN PRN Reason: Temperature Last Admin: 07/07/18 23:35 Dose: 650 mg Benzocaine/Menthol (Cepacol Sore Throat) 1 jaziel PO Q3 PRN PRN Reason: Sore Throat Last Admin: 07/08/18 04:56 Dose: 1 jaziel Docusate Sodium (Colace) 100 mg PO BID [facility] Last Admin: 07/07/18 18:20 Dose: Not Given Enoxaparin Sodium (Lovenox) 40 mg SC DAILY [facility] PRN Reason: Protocol Last Admin: 07/07/18 09:21 Dose: 40 mg Hydrocortisone (Anusol-Hc) 1 applic [place] BID [facility] Last Admin: 07/07/18 18:16 Dose: 1 applic Ciprofloxacin (Cipro 400mg/200ml Dsw) 400 mg in 200 mls @ 200 mls/hr IVPB Q12 [facility] PRN Reason: Protocol Last Admin: 07/07/18 22:01 Dose: 200 mls/hr Vancomycin HCl 1 gm/ Sodium (Chloride) 250 mls @ 166.667 mls/hr IVPB Q12@0900, 2100 [facility] PRN Reason: Protocol Last Admin: 07/07/18 23:21 Dose: 166.667 mls/hr Ibuprofen (Motrin Tab) 600 mg PO Q6 PRN PRN Reason: Pain, severe (8-10) Last Admin: 07/08/18 00:34 Dose: 600 mg Ibuprofen (Motrin Tab) 400 mg PO Q6 PRN PRN Reason: Pain, moderate (4-7) Last Admin: 07/07/18 14:55 Dose: 400 mg Iohexol (Omnipaque 240 (50 Ml)) 50 ml PO ONCE ONE Stop: 07/08/18 08:24 Magnesium Hydroxide (Milk Of Magnesia) 30 ml PO DAILY PRN PRN Reason: Constipation Last Admin: 07/06/18 09:52 Dose: 30 ml Pantoprazole Sodium (Protonix Ec Tab) 40 mg PO DAILY [facility] Last Admin: 07/07/18 09:21 Dose: 40 mg - Labs Labs: 07/08/18 06:12 07/08/18 06:12 - Constitutional Appears: No Acute Distress - Head Exam Head Exam: ATRAUMATIC, NORMAL INSPECTION, NORMOCEPHALIC - Eye Exam Eye Exam: EOMI, Normal appearance, PERRL Pupil Exam: NORMAL ACCOMODATION - ENT Exam ENT Exam: Mucous Membranes Moist, Normal Exam - Neck Exam Neck Exam: Full ROM, Normal Inspection - Respiratory Exam Respiratory Exam: Clear to Ausculation Bilateral, NORMAL BREATHING PATTERN. absent: Rales, Rhonchi, Wheezes - Cardiovascular Exam Cardiovascular Exam: REGULAR RHYTHM, RRR, +S1, +S2. absent: JVD - GI/Abdominal Exam GI & Abdominal Exam: Soft, Normal Bowel Sounds. absent: Distended, Guarding, Tenderness, Rebound - Rectal Exam Additional comments: left buttock 3x 3 cm area of redness and tenderness, small open area kin the midlle from I& D with no drainage - Extremities Exam Extremities Exam: Normal Capillary Refill. absent: Calf Tenderness, Pedal Edema Additional comments: left arm deltoid area 2x2 cm area of redness and tenderness , swollen - Back Exam Back Exam: NORMAL INSPECTION - Neurological Exam Neurological Exam: Alert, Awake, CN II-XII Intact, Oriented x3 - Psychiatric Exam Psychiatric exam: Normal Affect, Normal Mood - Skin Skin Exam: Dry, Warm Assessment and Plan - Assessment and Plan (Free Text) Assessment: 53 years old male with past medical hx of HLD, Diverticulitis, Hemorrhoides and now diagnosed 2 days ago with left Buttock abscess s/p Incision and drainage and discharged on Clindamycin. He returned to the ED for a wound check, referring that he still has fever and chills and some pain to the region of the abscess. Results of the Blood culture drawn on 07/03/18 grew Methicillin Resistant Staph. aureus and wound cx positive for E. coli and MRSA . He also referred painless mass to both testicles. Patient admitted for failing outpatient therapy and started on IV Vanco and Cipro. ID consulted . Patient remaining persistently febrile.Received Pneumococcus vaccine on 07/06 and left arm deltoid musckle arae apperas swollen , red and tender. 1.MRSA Bacteremia Still febrile Repeat blood cultures with no growth ID on consult Continue vanco IV Echo showed no vegetations 2. Cellulitis and Abscess of left buttock s/p I&D Wound cultures positive for MRSA and E.Coli ID on consult Still febrile Tmax 103 Continue Vanco and Cipro IV Procalcitonin 0.07 and WBC 16 K Patient had Pneumococcus vaccine on 07/06 and has redness , swelling and tenderness over the injection site. Unclear if fever is secondary to Pneumococcus vaccine f/o CT abdomen and pelvis 3.Injection site reaction left arm deltoid area where Pneumococcus vaccine is injected tenderness and redness warm compresses Tylenol PRN 4. Internal hemorrhoid Anusol 2.5% Rectally BID Milk of Magnesian, Docusate PRN constipation Sittz baths Increase fiber intake, prune juice, decrease fried fatty foods Follow up with surgical team in clinic on D/c- Dr. Arredondo 5. DVT prophylaxis Lovenox
[2018-07-08 08:27] LABS: BANDS 2 % (0-2); LYMPHOCYTE 8 % (20-50); MONOCYTE 7 % (0-10); NEUTROPHIL 83 % (42-75); TOTAL CELLS COUNTED 100
[2018-07-08 09:10] LABS: PLATELET ESTIMATE NORMAL (NORMAL)
[2018-07-08] MEDS: Enoxaparin 40 mg Syringe SC SCH (09:25)
[2018-07-08] MEDS: Ciprofloxacin 400mg/200ml D5W 400 MG/200 ML BAG IVPB SCH ×2 (09:25→20:52)
[2018-07-08] MEDS: Hydrocortisone 2.5% (Rectal) CREAM PR SCH ×2 (09:26→18:07)
--- NOTE | 2018-07-08 09:57 | CARD ---
APPROVED REPORT Date of service: 07/08/2018 EXAM: Two-dimensional and M-mode echocardiogram with Doppler and color Doppler. Other Information Quality : FairRhythm : Tachycardia Technically limited study due to No Parasternal window,only apical and sub xphoid windows. INDICATION Infection: 2D DIMENSIONS IVSd1.10 (0.7-1.1cm)LVDd4.23 (3.9-5.9cm) LVOT Diameter2.13 (1.8-2.4cm)PWd1.01 (0.7-1.1cm) IVSs1.16 (0.8-1.2cm)LVDs2.69 (2.5-4.0cm) FS (%) 36.6 %PWs1.31 (0.8-1.2cm) Aortic Valve AoV Peak Svaalxzm713.9cm/sAoV VTI18.9cmAO Peak GR.7mmHg LVOT Peak Jyfbdacb339.3cm/sLVOT VTI15.12cmAO Mean GR.4mmHg Mitral Valve MV E Goaavmai95.4cm/sMV DECEL [id number] A Zigtjxjp04.3cm/s MV LRD07xgH/A ratio0.8MVA (PHT)3.74cm2 TDI Lateral E' Peak V11.90cm/sMedial E' Peak V8.15cm/sE/Lateral E'4.7 E/Medial E'6.8 LEFT VENTRICLE The left ventricle is normal size. There is normal left ventricular wall thickness. The left ventricular ejection fraction is within the normal range. The Ejection Fraction is 60%. No regional wall motion abnormalities noted.. The left ventricular diastolic function is normal. No left ventricle thrombus noted on this study. There is no ventricular septal defect visualized. There is no mass noted in the left ventricle. RIGHT VENTRICLE The right ventricle is normal size. There is normal right ventricular wall thickness. The right ventricular systolic function is normal. ATRIA The left atrium size is normal. The right atrium size is normal. The interatrial septum is intact with no evidence for an atrial septal defect. AORTIC VALVE The aortic valve is normal in structure. No aortic regurgitation is present. There is no aortic valvular stenosis. MITRAL VALVE The mitral valve is normal in structure. There is no mitral valve stenosis. There is no mitral valve regurgitation noted. TRICUSPID VALVE The tricuspid valve is normal in structure. There is no tricuspid valve regurgitation noted. PULMONIC VALVE The pulmonary valve is normal in structure. There is no pulmonic valvular regurgitation. GREAT VESSELS The aortic root is normal in size. The ascending aorta is normal in size. The pulmonary artery is normal. The IVC is normal in size and collapses >50% with inspiration. PERICARDIAL EFFUSION There is no pericardial effusion. <Conclusion> Normal transthoracic echocardiogram. The Ejection Fraction is 60%. No evidence of valvular vegetation
[2018-07-08] MEDS ORDERED: Sodium Chloride 0.9% 50 ML IV ONE (12:56)
[2018-07-08] MEDS ORDERED: Iohexol 300 100 ML IJ ONE (12:56)
[2018-07-08] MEDS: Pantoprazole 40 mg EC Tab PO SCH (14:02)
[2018-07-08 16:29] LABS: IMMUNOGLOBULIN M 70.6 mg/dL (40.0-230.0)
[2018-07-08 16:31] LABS: COMPLEMENT C4 55.1 mg/dL (14.0-44.0)
--- NOTE | 2018-07-08 17:52 | CT ---
Date of service: 07/08/2018 PROCEDURE: CT Abdomen and Pelvis with contrast HISTORY: r/o pelvic abscess COMPARISON: 12/15/2016 CT pelvis TECHNIQUE: Contrast dose: 90 cc Omnipaque 300 Radiation dose: Total exam DLP = 339.58 mGy-cm. This CT exam was performed using one or more of the following dose reduction techniques: Automated exposure control, adjustment of the mA and/or kV according to patient size, and/or use of iterative reconstruction technique. FINDINGS: LOWER THORAX: Right lower lobe linear scar/atelectasis. LIVER: Unremarkable. No gross lesion or ductal dilatation. GALLBLADDER AND BILE DUCTS: Unremarkable. PANCREAS: Unremarkable. No gross lesion or ductal dilatation. SPLEEN: Unremarkable. ADRENALS: Unremarkable. No mass. KIDNEYS AND URETERS: Unremarkable. No hydronephrosis. No solid mass. VASCULATURE: Unremarkable. No aortic aneurysm. BOWEL: Sigmoid diverticulosis. No evidence of diverticulitis. No bowel obstruction. APPENDIX: Not identified. No secondary findings. PERITONEUM: Unremarkable. No free fluid. No free air. LYMPH NODES: There are shotty subcentimeter nodes seen medial to the cecum/ascending colon. This is a nonspecific finding. There is no generalized mesenteric adenopathy. No retroperitoneal or pelvic lymphadenopathy. BLADDER: Focal thickening of the left superior bladder wall with a small collection of gas within the thickened wall suspicious for an abscess, possibly resulting from the sigmoid colon. No air within the bladder lumen. This could be residual from the diverticulitis noted on 12/15/2016. REPRODUCTIVE: Normal prostate BONES: No acute fracture. OTHER FINDINGS: Focal cutaneous thickening over the right para gluteal buttock, possibly reflecting focal cellulitis. This is seen on series 3, image 185 and series 602, image 52. IMPRESSION: Focal thickening of the bladder wall of the left superior aspect with air within this thickened region of the bladder wall. Possibility of an abscess must be considered. The gas may be due to infection with a gas producing organism or communication with the sigmoid colonic lumen. Less likely is neoplasm with necrosis and communication with the sigmoid lumen or superinfection. Sigmoid diverticulosis without evidence of diverticulitis. Possible focal right medial gluteal cellulitis. See above.
[2018-07-09 05:34] LABS: HEMOGLOBIN 13.7 g/dL (12.0-18.0); MEAN CORPUSCULAR HEMOGLOBIN 30.1 pg (27.0-31.0); MEAN CORPUSCULAR HGB CONC 34.2 g/dL (33.0-37.0); RBC 4.56 Mil/uL (4.40-5.90); RED CELL DISTRIBUTION WIDTH 12.9 % (11.5-14.5); WHITE BLOOD COUNT 18.2 K/uL (4.8-10.8)
[2018-07-09 05:50] LABS: BLOOD UREA NITROGEN 14 mg/dl (9-20); CALCIUM 9.6 mg/dL (8.4-10.2); GFR AFRICAN-AMERICAN > 60; GFR NON-AFRICAN AMERICAN > 60
--- NOTE | 2018-07-09 07:31 | CP.PCM.PN ---
Subjective - Date & Time of Evaluation Date of Evaluation: 07/09/18 Time of Evaluation: 10:30 - Subjective Subjective: Patient seen and examined bedside. Complains of pain over left deltoid area where Pneumococcus vaccine was given with swelling and erythema. Still febrile Tmax 102.7 WBC trending up from 16K---18 K with chills after IV antibiotic infusion Pain to left buttock has improved Objective - Vital Signs/Intake and Output Vital Signs (last 24 hours): Temp Pulse Resp BP Pulse Ox 98.6 F 89 12 112/75 99 07/09/18 07:02 07/09/18 07:02 07/09/18 07:02 07/09/18 07:02 07/09/18 07:02 - Medications Medications: Current Medications Acetaminophen (Tylenol 325mg Tab) 650 mg PO Q6 PRN PRN Reason: Pain, Mild (1-3) Last Admin: 07/06/18 18:35 Dose: 650 mg Acetaminophen (Tylenol 325mg Tab) 650 mg PO Q6 PRN PRN Reason: Temperature Last Admin: 07/08/18 16:39 Dose: 650 mg Benzocaine/Menthol (Cepacol Sore Throat) 1 jaziel PO Q3 PRN PRN Reason: Sore Throat Last Admin: 07/08/18 20:51 Dose: 1 jaziel Docusate Sodium (Colace) 100 mg PO BID [facility] Last Admin: 07/08/18 17:40 Dose: Not Given Enoxaparin Sodium (Lovenox) 40 mg SC DAILY [facility] PRN Reason: Protocol Last Admin: 07/08/18 09:25 Dose: 40 mg Hydrocortisone (Anusol-Hc) 1 applic [place] BID [facility] Last Admin: 07/08/18 18:07 Dose: 1 applic Ciprofloxacin (Cipro 400mg/200ml Dsw) 400 mg in 200 mls @ 200 mls/hr IVPB Q12 [facility] PRN Reason: Protocol Last Admin: 07/08/18 20:52 Dose: 200 mls/hr Vancomycin HCl 1 gm/ Sodium (Chloride) 250 mls @ 166.667 mls/hr IVPB Q12@0900, 2100 [facility] PRN Reason: Protocol Last Admin: 07/08/18 20:51 Dose: 166.667 mls/hr Ibuprofen (Motrin Tab) 600 mg PO Q6 PRN PRN Reason: Pain, severe (8-10) Last Admin: 07/08/18 08:26 Dose: 600 mg Ibuprofen (Motrin Tab) 400 mg PO Q6 PRN PRN Reason: Pain, moderate (4-7) Last Admin: 07/07/18 14:55 Dose: 400 mg Magnesium Hydroxide (Milk Of Magnesia) 30 ml PO DAILY PRN PRN Reason: Constipation Last Admin: 07/06/18 09:52 Dose: 30 ml Pantoprazole Sodium (Protonix Ec Tab) 40 mg PO DAILY [facility] Last Admin: 07/08/18 14:02 Dose: 40 mg - Labs Labs: 07/09/18 04:35 07/09/18 04:35 - Constitutional Appears: Non-toxic, No Acute Distress - Head Exam Head Exam: ATRAUMATIC, NORMAL INSPECTION, NORMOCEPHALIC - Eye Exam Eye Exam: EOMI, Normal appearance, PERRL Pupil Exam: NORMAL ACCOMODATION - ENT Exam ENT Exam: Mucous Membranes Moist, Normal Exam - Neck Exam Neck Exam: Full ROM, Normal Inspection - Respiratory Exam Respiratory Exam: Clear to Ausculation Bilateral, NORMAL BREATHING PATTERN. absent: Rales, Rhonchi, Wheezes, Respiratory Distress - Cardiovascular Exam Cardiovascular Exam: REGULAR RHYTHM, RRR, +S1, +S2. absent: JVD - GI/Abdominal Exam GI & Abdominal Exam: Soft, Normal Bowel Sounds. absent: Distended, Guarding, Tenderness, Rebound - Rectal Exam Additional comments: left buttock area erythema, no fluctuation , small incision from I & D - Extremities Exam Extremities Exam: absent: Calf Tenderness, Pedal Edema Additional comments: left deltoid area 5x 5 cm ereythematous lesion , warm to touch and tender - Back Exam Back Exam: NORMAL INSPECTION - Neurological Exam Neurological Exam: Alert, Awake, CN II-XII Intact, Oriented x3 - Psychiatric Exam Psychiatric exam: Normal Affect, Normal Mood - Skin Skin Exam: Dry, Warm Assessment and Plan - Assessment and Plan (Free Text) Assessment: 53 years old male with past medical hx of HLD, Diverticulitis, Hemorrhoides and now diagnosed 2 days ago with left Buttock abscess s/p Incision and drainage and discharged on Clindamycin. He returned to the ED for a wound check, referring that he still has fever and chills and some pain to the region of the abscess. Results of the Blood culture drawn on 07/03/18 grew Methicillin Resistant Staph. aureus and wound cx positive for E. coli and MRSA . He also referred painless mass to both testicles. Patient admitted for failing outpatient therapy and started on IV Vanco and Cipro. ID consulted . Patient remaining persistently febrile.Received Pneumococcus vaccine on 07/06 and left arm deltoid muscle area appears swollen , red and tender. 1.Bacteremia ruled out since blood cultures are with no growth Still febrile Repeat blood cultures with no growth ID on consult Continue vanco IV Echo showed no vegetations 2. Cellulitis and Abscess of left buttock s/p I&D Wound cultures positive for MRSA and E.Coli ID on consult Still febrile Tmax 102 Continue Vanco and Cipro IV Procalcitonin 0.07 and WBC 16 K Patient had Pneumococcus vaccine on 07/06 and has redness , swelling and tenderness over the injection site. Unclear if fever is secondary to Pneumococcus vaccine. Will perform US of left deltoid muscle area. CT abdomen and pelvis showed :Focal thickening of the bladder wall of the left superior aspect with air within this thickened region of the bladder wall. Possibility of an abscess must be considered. The gas may be due to infection with a gas producing organism or communication with the sigmoid colonic lumen. Less likely is neoplasm with necrosis and communication with the sigmoid lumen or superinfection. Sigmoid diverticulosis without evidence of diverticulitis. Possible focal right medial gluteal cellulitis. 3.Injection site reaction left arm deltoid area where Pneumococcus vaccine is injected tenderness and redness warm compresses Tylenol PRN Will perform US to rule out abscess formation 4. Internal hemorrhoid Anusol 2.5% Rectally BID Milk of Magnesian, Docusate PRN constipation Sittz baths Increase fiber intake, prune juice, decrease fried fatty foods Follow up with surgical team in clinic on D/c- Dr. Arredondo 5. DVT prophylaxis Lovenox
[2018-07-09] MEDS: Ciprofloxacin 400mg/200ml D5W 400 MG/200 ML BAG IVPB SCH (08:50)
[2018-07-09] MEDS: Hydrocortisone 2.5% (Rectal) CREAM PR SCH ×2 (08:51→18:13)
[2018-07-09] MEDS: Benzocaine/Menthol (Cepacol) Lozenge PO PRN ×4 (08:51→22:21)
[2018-07-09] MEDS: Pantoprazole 40 mg EC Tab PO SCH (08:51)
[2018-07-09] MEDS: Enoxaparin 40 mg Syringe SC SCH (08:52)
--- NOTE | 2018-07-09 13:22 | CP.PCM.PN ---
Subjective - Date & Time of Evaluation Date of Evaluation: 07/09/18 Time of Evaluation: 07:00 - Subjective Subjective: left arm redness noted wbc trending up t max lower ct findings noted Objective - Vital Signs/Intake and Output Vital Signs (last 24 hours): Temp Pulse Resp BP Pulse Ox 99.1 F 107 H 16 141/89 97 07/09/18 12:00 07/09/18 12:00 07/09/18 12:00 07/09/18 12:00 07/09/18 12:00 - Medications Medications: Current Medications Acetaminophen (Tylenol 325mg Tab) 650 mg PO Q6 PRN PRN Reason: Pain, Mild (1-3) Last Admin: 07/06/18 18:35 Dose: 650 mg Acetaminophen (Tylenol 325mg Tab) 650 mg PO Q6 PRN PRN Reason: Temperature Last Admin: 07/08/18 16:39 Dose: 650 mg Benzocaine/Menthol (Cepacol Sore Throat) 1 jaziel PO Q3 PRN PRN Reason: Sore Throat Last Admin: 07/09/18 08:51 Dose: 1 jaziel Docusate Sodium (Colace) 100 mg PO BID [facility] Last Admin: 07/09/18 08:52 Dose: 100 mg Enoxaparin Sodium (Lovenox) 40 mg SC DAILY [facility] PRN Reason: Protocol Last Admin: 07/09/18 08:52 Dose: 40 mg Hydrocortisone (Anusol-Hc) 1 applic [place] BID [facility] Last Admin: 07/09/18 08:51 Dose: 1 applic Ciprofloxacin (Cipro 400mg/200ml Dsw) 400 mg in 200 mls @ 200 mls/hr IVPB Q12 [facility] PRN Reason: Protocol Last Admin: 07/09/18 08:50 Dose: 200 mls/hr Vancomycin HCl 1 gm/ Sodium (Chloride) 250 mls @ 166.667 mls/hr IVPB Q12@0900, 2100 [facility]MA PRN Reason: Protocol Last Admin: 07/09/18 08:50 Dose: 166.667 mls/hr Ibuprofen (Motrin Tab) 600 mg PO Q6 PRN PRN Reason: Pain, severe (8-10) Last Admin: 07/08/18 08:26 Dose: 600 mg Ibuprofen (Motrin Tab) 400 mg PO Q6 PRN PRN Reason: Pain, moderate (4-7) Last Admin: 07/07/18 14:55 Dose: 400 mg Magnesium Hydroxide (Milk Of Magnesia) 30 ml PO DAILY PRN PRN Reason: Constipation Last Admin: 07/06/18 09:52 Dose: 30 ml Pantoprazole Sodium (Protonix Ec Tab) 40 mg PO DAILY [facility] Last Admin: 07/09/18 08:51 Dose: 40 mg - Labs Labs: 07/09/18 04:35 07/09/18 04:35 - Constitutional Appears: No Acute Distress, Chronically Ill - Head Exam Head Exam: NORMOCEPHALIC - Eye Exam Eye Exam: EOMI, PERRL - ENT Exam ENT Exam: Mucous Membranes Dry - Neck Exam Neck Exam: absent: Lymphadenopathy - Respiratory Exam Respiratory Exam: Decreased Breath Sounds - Cardiovascular Exam Cardiovascular Exam: REGULAR RHYTHM - GI/Abdominal Exam GI & Abdominal Exam: Distended - Rectal Exam Rectal Exam: Deferred Assessment and Plan (1) Sepsis Status: Acute (2) Abscess of buttock Status: Acute (3) Failure of outpatient treatment Status: Acute (4) Fever and chills Status: Acute (5) Fever and chills Status: Acute - Assessment and Plan (Free Text) Assessment: CT abdomen and pelvis showed :Focal thickening of the bladder wall of the left superior aspect with air within this thickened region of the bladder wall. Possibility of an abscess must be considered. The gas may be due to infection with a gas producing organism or communication with the sigmoid colonic lumen. Less likely is neoplasm with necrosis and communication with the sigmoid lumen or superinfection. Sigmoid diverticulosis without evidence of diverticulitis. Possible focal right medial gluteal cellulitis. recommend adding anaerobic coverage consider GI and or eval
--- NOTE | 2018-07-09 17:47 | US ---
Date of service: 07/09/2018 PROCEDURE: Ultrasound soft tissue left upper arm HISTORY: left upper extremity r/o abscess COMPARISON: Not available TECHNIQUE: Targeted ultrasound examination of the lateral left upper arm was performed. FINDINGS: In the region of concern in the lateral left upper arm, at the site of recent vaccination, there is subcutaneous edema. There is no solid mass or fluid collection identified. IMPRESSION: No evidence of abscess.
[2018-07-09] MEDS: Piperacillin/Tazobact 4.5 GM in Sodium Chloride 0.9% 100 ML IVPB SCH (18:12)
[2018-07-09] MEDS ORDERED: Lidocaine 2% Jelly (Uro-Jet) TOP PRN (19:53)
--- NOTE | 2018-07-09 20:13 | CP.PCM.CON ---
History of Present Illness - History of Present Illness History of Present Illness: 53 yo male s/p I and D for abscess of buttocks readmitted with fever chills and pain at site of abscess. CT was done today of abdomen/pelvis due to persistent fever and air seen on left in bladder wall. Patient without abdominal pain. Review of Systems - Constitutional Constitutional: absent: Chills - EENT Eyes: absent: Change in Vision Ears: absent: Ear Discharge - Cardiovascular Cardiovascular: absent: Chest Pain - Respiratory Respiratory: absent: Dyspnea - Gastrointestinal Gastrointestinal: Hematochezia. absent: Abdominal Pain - Genitourinary Genitourinary: absent: Change in Urinary Stream Past Patient History - Past Medical History & Family History Past Medical History?: Yes - Past Social History Smoking Status: Former Smoker - CARDIAC Hx Hypercholesterolemia: Yes - PULMONARY Hx Respiratory Disorders: No - NEUROLOGICAL Hx Neurological Disorder: No - HEENT Hx HEENT Problems: Yes Other/Comment: EYE GLASSES - RENAL Hx Chronic Kidney Disease: No - ENDOCRINE/METABOLIC Hx Endocrine Disorders: No - HEMATOLOGICAL/ONCOLOGICAL Hx Blood Disorders: No - INTEGUMENTARY Hx Dermatological Problems: No - MUSCULOSKELETAL/RHEUMATOLOGICAL Hx Musculoskeletal Disorders: Yes Hx Falls: Yes - GASTROINTESTINAL Hx Gastrointestinal Disorders: No - GENITOURINARY/GYNECOLOGICAL Hx Genitourinary Disorders: No - PSYCHIATRIC Hx Psychophysiologic Disorder: No Hx Substance Use: No - SURGICAL HISTORY Hx Surgeries: No - ANESTHESIA Hx Anesthesia: No Hx Anesthesia Reactions: No Hx Malignant Hyperthermia: No Meds Home Medications: Home Medication List Medication Instructions Recorded Confirmed Type Ciprofloxacin [Cipro] 500 mg PO BID #20 tab 07/06/18 Rx Sulfamethoxazole/Trimethoprim 1 tab PO BID #10 tab 07/06/18 Rx [Bactrim DS 800 mg-160 mg] Allergies/Adverse Reactions: Allergies Allergy/AdvReac Type Severity Reaction Status Date / Time [place] Allergy ITCHING Uncoded 07/05/18 17:55 - Medications Medications: Current Medications Acetaminophen (Tylenol 325mg Tab) 650 mg PO Q6 PRN PRN Reason: Pain, Mild (1-3) Last Admin: 07/09/18 14:44 Dose: 650 mg Acetaminophen (Tylenol 325mg Tab) 650 mg PO Q6 PRN PRN Reason: Temperature Last Admin: 07/08/18 16:39 Dose: 650 mg Benzocaine/Menthol (Cepacol Sore Throat) 1 jaziel PO Q3 PRN PRN Reason: Sore Throat Last Admin: 07/09/18 18:13 Dose: 1 jaziel Docusate Sodium (Colace) 100 mg PO BID [facility] Last Admin: 07/09/18 18:14 Dose: Not Given Enoxaparin Sodium (Lovenox) 40 mg SC DAILY [facility] PRN Reason: Protocol Last Admin: 07/09/18 08:52 Dose: 40 mg Hydrocortisone (Anusol-Hc) 1 applic SC BID [facility] Last Admin: 07/09/18 18:13 Dose: 1 applic Piperacillin Sod/Tazobactam (Sod 4.5 gm/ Sodium Chloride) 100 mls @ 100 mls/hr IVPB Q8 [facility] PRN Reason: Protocol Last Admin: 07/09/18 18:12 Dose: 100 mls/hr Vancomycin HCl 1 gm/ Sodium (Chloride) 250 mls @ 250 mls/hr IVPB Q8H [facility] PRN Reason: Protocol Last Admin: 07/09/18 14:38 Dose: 250 mls/hr Ibuprofen (Motrin Tab) 600 mg PO Q6 PRN PRN Reason: Pain, severe (8-10) Last Admin: 07/08/18 08:26 Dose: 600 mg Ibuprofen (Motrin Tab) 400 mg PO Q6 PRN PRN Reason: Pain, moderate (4-7) Last Admin: 07/07/18 14:55 Dose: 400 mg Lidocaine HCl (Xylocaine 2% (Uro-Jet)) 1 ea TOP ONCE PRN PRN Reason: Hemorrhoids Magnesium Hydroxide (Milk Of Magnesia) 30 ml PO DAILY PRN PRN Reason: Constipation Last Admin: 07/06/18 09:52 Dose: 30 ml Pantoprazole Sodium (Protonix Ec Tab) 40 mg PO DAILY [facility] Last Admin: 07/09/18 08:51 Dose: 40 mg Physical Exam - Head Exam Head Exam: NORMAL INSPECTION - Eye Exam Eye Exam: Normal appearance - ENT Exam ENT Exam: Normal Exam - Neck Exam Neck exam: Positive for: Normal Inspection - Cardiovascular Exam Cardiovascular Exam: +S1, +S2 - GI/Abdominal Exam GI & Abdominal Exam: Normal Bowel Sounds, Soft. absent: Tenderness Additional comments: Rectal with tender swollen hemorrhoid Results - Vital Signs Recent Vital Signs: Last Vital Signs Temp 99.2 F 07/09/18 19:35 Pulse 98 H 07/09/18 19:35 Resp 20 07/09/18 19:35 BP 111/76 07/09/18 19:35 Pulse Ox 98 07/09/18 19:35 - Labs Result Diagrams: 07/09/18 04:35 07/09/18 04:35 Labs: Laboratory Results - last 24 hr 07/07/18 07/09/18 07/09/18 20:41 04:35 04:35 WBC 18.2 H RBC 4.56 Hgb 13.7 Hct 40.1 MCV 88.0 MCH 30.1 MCHC 34.2 RDW 12.9 Plt Count 405 H Sodium 137 Potassium 4.3 Chloride 100 Carbon Dioxide 30 Anion Gap 11 BUN 14 Creatinine 0.9 Est GFR ( Amer) > 60 Est GFR (Non-Af Amer) > 60 Random Glucose 105 Calcium 9.6 HIV 1&2 Antibody Screen Negative - Imaging and Cardiology CT scan - abdomen Status: Report reviewed by me CT scan - pelvis Status: Report reviewed by me Assessment & Plan (1) Abscess Assessment and Plan: Patient with fever, and divertculosis. Gas seen in left bladder wall. No clinical evidence of diverticulitis or other underlying GI diseaseto result in a fistula.Continue current abx. Will follow with you. Status: Acute
[2018-07-10] MEDS: Piperacillin/Tazobact 4.5 GM in Sodium Chloride 0.9% 100 ML IVPB SCH ×3 (01:17→18:49)
[2018-07-10 05:45] LABS: BLOOD UREA NITROGEN 15 mg/dl (9-20); CALCIUM 9.3 mg/dL (8.4-10.2); GFR AFRICAN-AMERICAN > 60; GFR NON-AFRICAN AMERICAN > 60
[2018-07-10 05:47] LABS: MEAN CELL VOLUME 88.6 fl (80.0-94.0); MEAN CORPUSCULAR HGB CONC 33.8 g/dL (33.0-37.0); RBC 4.34 Mil/uL (4.40-5.90); RED CELL DISTRIBUTION WIDTH 13.1 % (11.5-14.5); WHITE BLOOD COUNT 12.1 K/uL (4.8-10.8)
--- NOTE | 2018-07-10 07:22 | CP.PCM.DIS ---
<Venu Chavez - Last Filed: 07/10/18 07:19> Provider - Provider Date of Admission: 07/07/18 16:59 Attending physician: Trav Vanegas [facility] Course - Lab Results Lab Results: Micro Results 07/05/18 20:05 Blood-Venous Blood Culture - Preliminary NO GROWTH AFTER 4 DAYS 07/05/18 19:50 Blood-Venous Blood Culture - Preliminary NO GROWTH AFTER 4 DAYS 07/06/18 19:22 Blood Blood Culture - Preliminary NO GROWTH AFTER 3 DAYS 07/06/18 19:12 Blood Blood Culture - Preliminary NO GROWTH AFTER 3 DAYS 07/07/18 22:15 Throat Group A Strep Throat Culture - Final NO BETA STREP GROUP A ISOLATED. 07/06/18 06:19 Urine,Clean Catch Urine Culture - Final No Growth (<1,000 CFU/ML) Most Recent Lab Values WBC 12.1 K/uL (4.8-10.8) H 07/10/18 05:05 RBC 4.34 Mil/uL (4.40-5.90) L 07/10/18 05:05 Hgb 13.0 g/dL (12.0-18.0) 07/10/18 05:05 Hct 38.5 % (35.0-51.0) 07/10/18 05:05 MCV 88.6 fl (80.0-94.0) 07/10/18 05:05 MCH 30.0 pg (27.0-31.0) 07/10/18 05:05 MCHC 33.8 g/dL (33.0-37.0) 07/10/18 05:05 RDW 13.1 % (11.5-14.5) 07/10/18 05:05 Plt Count 416 K/uL (130-400) H 07/10/18 05:05 MPV 7.5 fl (7.2-11.7) 07/08/18 06:12 Neut % (Auto) 82.2 % (50.0-75.0) H 07/08/18 06:12 Lymph % (Auto) 9.0 % (20.0-40.0) L 07/08/18 06:12 [place] % (Auto) 8.4 % (0.0-10.0) 07/08/18 06:12 Eos % (Auto) 0.1 % (0.0-4.0) 07/08/18 06:12 Baso % (Auto) 0.3 % (0.0-2.0) 07/08/18 06:12 Neut # (Auto) 13.6 K/uL (1.8-7.0) H 07/08/18 06:12 Lymph # (Auto) 1.5 K/uL (1.0-4.3) 07/08/18 06:12 [place] # (Auto) 1.4 K/uL (0.0-0.8) H 07/08/18 06:12 Eos # (Auto) 0.0 K/uL (0.0-0.7) 07/08/18 06:12 Baso # (Auto) 0.1 K/uL (0.0-0.2) 07/08/18 06:12 Neutrophils % (Manual) 83 % (42-75) H 07/08/18 06:12 Band Neutrophils % 2 % (0-2) 07/08/18 06:12 Lymphocytes % (Manual) 8 % (20-50) L 07/08/18 06:12 Monocytes % (Manual) 7 % (0-10) 07/08/18 06:12 Platelet Estimate Normal (NORMAL) 07/08/18 06:12 pO2 46 mm/Hg (30-55) 07/05/18 20:20 VBG pH 7.47 (7.32-7.43) H 07/05/18 20:20 VBG pCO2 36 mmHg (40-60) L 07/05/18 20:20 VBG HCO3 26.7 mmol/L 07/05/18 20:20 VBG Total CO2 27.3 mmol/L (22-28) 07/05/18 20:20 VBG O2 Sat (Calc) 79.2 % (40-65) H 07/05/18 20:20 VBG Base Excess 2.7 mmol/L (0.0-2.0) H 07/05/18 20:20 VBG Potassium 4.4 mmol/L (3.6-5.2) 07/05/18 20:20 Sodium 134.0 mmol/L (132-148) 07/05/18 20:20 Chloride 102.0 mmol/L (98-107) 07/05/18 20:20 Glucose 89 mg/dL (75-110) 07/05/18 20:20 Lactate 1.1 mmol/L (0.7-2.1) 07/05/18 20:20 FiO2 21.0 % 07/05/18 20:20 Sodium 138 mmol/l (132-148) 07/10/18 05:05 Potassium 4.0 MMOL/L (3.6-5.0) 07/10/18 05:05 Chloride 103 mmol/L (98-107) 07/10/18 05:05 Carbon Dioxide 29 mmol/L (22-30) 07/10/18 05:05 Anion Gap 10 (10-20) 07/10/18 05:05 BUN 15 mg/dl (9-20) 07/10/18 05:05 Creatinine 0.8 mg/dl (0.8-1.5) 07/10/18 05:05 Est GFR ( Amer) > 60 07/10/18 05:05 Est GFR (Non-Af Amer) > 60 07/10/18 05:05 Random Glucose 104 mg/dL (75-110) 07/10/18 05:05 Lactic Acid 1.7 MMOL/L (0.7-2.1) 07/06/18 19:22 Calcium 9.3 mg/dL (8.4-10.2) 07/10/18 05:05 Total Bilirubin 0.4 mg/dl (0.2-1.3) 07/05/18 19:50 AST 49 U/L (17-59) 07/05/18 19:50 ALT 36 U/L (21-72) 07/05/18 19:50 Alkaline Phosphatase 74 U/L (38-126) 07/05/18 19:50 Total Protein 7.7 G/DL (6.3-8.2) 07/05/18 19:50 Albumin 3.8 g/dL (3.5-5.0) 07/05/18 19:50 Globulin 3.9 gm/dL (2.2-3.9) 07/05/18 19:50 Albumin/Globulin Ratio 1.0 (1.0-2.1) 07/05/18 19:50 Procalcitonin 0.07 NG/ML (0.19-0.49) L 07/06/18 19:22 Venous Blood Potassium 4.4 mmol/L (3.6-5.2) 07/05/18 20:20 Urine Color Yellow (YELLOW) 07/06/18 06:19 Urine Clarity Slighty-cloudy (Clear) 07/06/18 06:19 Urine pH 5.0 (5.0-8.0) 07/06/18 06:19 Ur Specific [place] 1.019 (1.003-1.030) 07/06/18 06:19 Urine Protein Negative mg/dL (NEGATIVE) 07/06/18 06:19 Urine Glucose (UA) Neg mg/dL (Normal) 07/06/18 06:19 Urine Ketones Negative mg/dL (NEGATIVE) 07/06/18 06:19 Urine Blood Small (NEGATIVE) 07/06/18 06:19 Urine Nitrate Negative (NEGATIVE) 07/06/18 06:19 Urine Bilirubin Negative (NEGATIVE) 07/06/18 06:19 Urine Urobilinogen 0.2-1.0 mg/dL (0.2-1.0) 07/06/18 06:19 Ur Leukocyte Esterase Neg [place]/uL (Negative) 07/06/18 06:19 Urine RBC (Auto) 2 /hpf (0-3) 07/06/18 06:19 Urine Microscopic WBC 1 /hpf (0-5) 07/06/18 06:19 Ur Squamous Epith Cells < 1 /hpf (0-5) 07/06/18 06:19 Vancomycin Trough 10.8 ug/mL (5.0-10.0) H 07/10/18 05:05 IgG 1390.0 mg/dL (700.0-1600.0) 07/08/18 06:12 IgA 353.0 mg/dL (70.0-400.0) 07/08/18 06:12 IgM 70.6 mg/dL (40.0-230.0) 07/08/18 06:12 Complement C3 175.0 mg/dL (88.0-165.0) H 07/08/18 06:12 Complement C4 55.1 mg/dL (14.0-44.0) H 07/08/18 06:12 HIV 1&2 Antibody Screen Negative (NEGATIVE) 07/07/18 20:41 Influenza Typ A,B (EIA) Negative for flu a/b (NEGATIVE) 07/07/18 Unknown Grp A Beta Strep Ag Negative (NEGATIVE) 07/07/18 22:15 Discharge Exam - Head Exam Head Exam: NORMAL INSPECTION Discharge Plan - Discharge Medications Prescriptions: Ciprofloxacin [Cipro] 500 mg PO BID #20 tab Sulfamethoxazole/Trimethoprim [Bactrim DS 800 mg-160 mg] 1 tab PO BID #10 tab - Follow Up Plan Condition: STABLE Disposition: HOME/ ROUTINE Instructions: Hemorrhoids, Abscess (GEN) Additional Instructions: follow up with pmd in 1 week Referrals: James Hernandez MD [Staff Provider] - <Gloria Barrios - Last Filed: 07/10/18 15:41> Provider - Provider Date of Admission: 07/07/18 16:59 Attending physician: Trav Vanegas Primary care physician: Clifford Cervantes Consults: Dr. Shine- Infectious Disease, Dr. Dickinson- GI Time Spent in preparation of Discharge (in minutes): 20 Hospital Course - Lab Results Lab Results: Micro Results 07/05/18 20:05 Blood-Venous Blood Culture - Preliminary NO GROWTH AFTER 4 DAYS 07/05/18 19:50 Blood-Venous Blood Culture - Preliminary NO GROWTH AFTER 4 DAYS 07/06/18 19:22 Blood Blood Culture - Preliminary NO GROWTH AFTER 3 DAYS 07/06/18 19:12 Blood Blood Culture - Preliminary NO GROWTH AFTER 3 DAYS 07/07/18 22:15 Throat Group A Strep Throat Culture - Final NO BETA STREP GROUP A ISOLATED. 07/06/18 06:19 Urine,Clean Catch Urine Culture - Final No Growth (<1,000 CFU/ML) Most Recent Lab Values WBC 12.1 K/uL (4.8-10.8) H 07/10/18 05:05 RBC 4.34 Mil/uL (4.40-5.90) L 07/10/18 05:05 Hgb 13.0 g/dL (12.0-18.0) 07/10/18 05:05 Hct 38.5 % (35.0-51.0) 07/10/18 05:05 MCV 88.6 fl (80.0-94.0) 07/10/18 05:05 MCH 30.0 pg (27.0-31.0) 07/10/18 05:05 MCHC 33.8 g/dL (33.0-37.0) 07/10/18 05:05 RDW 13.1 % (11.5-14.5) 07/10/18 05:05 Plt Count 416 K/uL (130-400) H 07/10/18 05:05 MPV 7.5 fl (7.2-11.7) 07/08/18 06:12 Neut % (Auto) 82.2 % (50.0-75.0) H 07/08/18 06:12 Lymph % (Auto) 9.0 % (20.0-40.0) L 07/08/18 06:12 [place] % (Auto) 8.4 % (0.0-10.0) 07/08/18 06:12 Eos % (Auto) 0.1 % (0.0-4.0) 07/08/18 06:12 Baso % (Auto) 0.3 % (0.0-2.0) 07/08/18 06:12 Neut # (Auto) 13.6 K/uL (1.8-7.0) H 07/08/18 06:12 Lymph # (Auto) 1.5 K/uL (1.0-4.3) 07/08/18 06:12 [place] # (Auto) 1.4 K/uL (0.0-0.8) H 07/08/18 06:12 Eos # (Auto) 0.0 K/uL (0.0-0.7) 07/08/18 06:12 Baso # (Auto) 0.1 K/uL (0.0-0.2) 07/08/18 06:12 Neutrophils % (Manual) 83 % (42-75) H 07/08/18 06:12 Band Neutrophils % 2 % (0-2) 07/08/18 06:12 Lymphocytes % (Manual) 8 % (20-50) L 07/08/18 06:12 Monocytes % (Manual) 7 % (0-10) 07/08/18 06:12 Platelet Estimate Normal (NORMAL) 07/08/18 06:12 pO2 46 mm/Hg (30-55) 07/05/18 20:20 VBG pH 7.47 (7.32-7.43) H 07/05/18 20:20 VBG pCO2 36 mmHg (40-60) L 07/05/18 20:20 VBG HCO3 26.7 mmol/L 07/05/18 20:20 VBG Total CO2 27.3 mmol/L (22-28) 07/05/18 20:20 VBG O2 Sat (Calc) 79.2 % (40-65) H 07/05/18 20:20 VBG Base Excess 2.7 mmol/L (0.0-2.0) H 07/05/18 20:20 VBG Potassium 4.4 mmol/L (3.6-5.2) 07/05/18 20:20 Sodium 134.0 mmol/L (132-148) 07/05/18 20:20 Chloride 102.0 mmol/L (98-107) 07/05/18 20:20 Glucose 89 mg/dL (75-110) 07/05/18 20:20 Lactate 1.1 mmol/L (0.7-2.1) 07/05/18 20:20 FiO2 21.0 % 07/05/18 20:20 Sodium 138 mmol/l (132-148) 07/10/18 05:05 Potassium 4.0 MMOL/L (3.6-5.0) 07/10/18 05:05 Chloride 103 mmol/L (98-107) 07/10/18 05:05 Carbon Dioxide 29 mmol/L (22-30) 07/10/18 05:05 Anion Gap 10 (10-20) 07/10/18 05:05 BUN 15 mg/dl (9-20) 07/10/18 05:05 Creatinine 0.8 mg/dl (0.8-1.5) 07/10/18 05:05 Est GFR ( Amer) > 60 07/10/18 05:05 Est GFR (Non-Af Amer) > 60 07/10/18 05:05 Random Glucose 104 mg/dL (75-110) 07/10/18 05:05 Lactic Acid 1.7 MMOL/L (0.7-2.1) 07/06/18 19:22 Calcium 9.3 mg/dL (8.4-10.2) 07/10/18 05:05 Total Bilirubin 0.4 mg/dl (0.2-1.3) 07/05/18 19:50 AST 49 U/L (17-59) 07/05/18 19:50 ALT 36 U/L (21-72) 07/05/18 19:50 Alkaline Phosphatase 74 U/L (38-126) 07/05/18 19:50 Total Protein 7.7 G/DL (6.3-8.2) 07/05/18 19:50 Albumin 3.8 g/dL (3.5-5.0) 07/05/18 19:50 Globulin 3.9 gm/dL (2.2-3.9) 07/05/18 19:50 Albumin/Globulin Ratio 1.0 (1.0-2.1) 07/05/18 19:50 Procalcitonin 0.07 NG/ML (0.19-0.49) L 07/06/18 19:22 Venous Blood Potassium 4.4 mmol/L (3.6-5.2) 07/05/18 20:20 Urine Color Yellow (YELLOW) 07/06/18 06:19 Urine Clarity Slighty-cloudy (Clear) 07/06/18 06:19 Urine pH 5.0 (5.0-8.0) 07/06/18 06:19 Ur Specific [place] 1.019 (1.003-1.030) 07/06/18 06:19 Urine Protein Negative mg/dL (NEGATIVE) 07/06/18 06:19 Urine Glucose (UA) Neg mg/dL (Normal) 07/06/18 06:19 Urine Ketones Negative mg/dL (NEGATIVE) 07/06/18 06:19 Urine Blood Small (NEGATIVE) 07/06/18 06:19 Urine Nitrate Negative (NEGATIVE) 07/06/18 06:19 Urine Bilirubin Negative (NEGATIVE) 07/06/18 06:19 Urine Urobilinogen 0.2-1.0 mg/dL (0.2-1.0) 07/06/18 06:19 Ur Leukocyte Esterase Neg [place]/uL (Negative) 07/06/18 06:19 Urine RBC (Auto) 2 /hpf (0-3) 07/06/18 06:19 Urine Microscopic WBC 1 /hpf (0-5) 07/06/18 06:19 Ur Squamous Epith Cells < 1 /hpf (0-5) 07/06/18 06:19 Vancomycin Trough 10.8 ug/mL (5.0-10.0) H 07/10/18 05:05 IgG 1390.0 mg/dL (700.0-1600.0) 07/08/18 06:12 IgA 353.0 mg/dL (70.0-400.0) 07/08/18 06:12 IgM 70.6 mg/dL (40.0-230.0) 07/08/18 06:12 Complement C3 175.0 mg/dL (88.0-165.0) H 07/08/18 06:12 Complement C4 55.1 mg/dL (14.0-44.0) H 07/08/18 06:12 HIV 1&2 Antibody Screen Negative (NEGATIVE) 07/07/18 20:41 Influenza Typ A,B (EIA) Negative for flu a/b (NEGATIVE) 07/07/18 Unknown Grp A Beta Strep Ag Negative (NEGATIVE) 07/07/18 22:15 - Hospital Course Hospital Course: 53 yo male with a PMH of diverticulitis, hemorrhoids, HLD, B/L testicular nodules presented to the ED on 07/03 for 1cm Left gluteal abscess, patient was discharged home s/p incision and drainage however he failed outpt oral treatment on clindamycin. He returned to ED on 07/05/18 with fever chills and left gluteal pain. Wound cultures were positive for MRSA + Ecoli. Patient was placed on Vanc + Cipro, during the hospital course he has spiked fevers and chills however has been afebrile for >36 hours, WBC count down to 12.1 from 18.2. Echo was negative for vegetations, follow up blood cultures showed no growth. Hemorrhoid pain patient was given Xylocaine, patient can follow up with surgical team as outpatient, continue high fiber diet, Anusol, Sitz baths. Patient can be discharged today on Bactrim and Cipro. CT abdomen and pelvis showed air within bladder wall, GI was consulted to evaluate for vesicourethral fistula however no fistula was found no intervention is recommended as an in- patient, patient can follow up as an outpatient for colonoscopy. Pneumococcal vaccine on 07/06 was given in left deltoid, PT developed local cellulitis reaction, upper extremity U/S ruled out abscess, conservative therapy done ice packs and Tylenol. This morning patient is afebrile, hemodynamically stable, tolderating diet, ambulating well, denies fever, chills, night sweats, nausea, vomiting, diarrhea, hematochezia, or constipation. All patients questions were answered at bedside will continue to treat patient with prescriptions as an outpt. 1. Cellulitis and Abscess of Left Buttock -S/p- I & D, wound cultures positive for MRSA and E. Coli-Continue Oral abx Bactrim and Cipro as outpt -Bacteremia ruled out, blood cultures negative, Echo showed no vegetations, afebrile >36hours - Procalcitonin 0.07 and WBC 16 K -Return to ED if fever or chills not relieved with Tylenol 2. Internal Hemorrhoids -No bleeding, H & H stable, CT scan negative for diverticulitis, fistula or abscess -Continue Xylocaine , Anusol 2.5% Rectally BID as outpt - Educated patient on a high fiber diet, prune juice, decrease fried fatty foods , Milk of Magnesia, Docusate PRN constipation -Sittz baths -Follow up with surgical team out patient clinic- Dr. Arredondo for further management 3. Local Cellulitis Secondary to Pneumococcal Vaccine Left Deltoid - Conservative therapy- warm compresses, Tylenol PRN pain - Upper Extremity U/S ruled out abscess formation . 4. DVT Prophylaxis - Lovenox - Date & Time of H&P Date of H&P: 07/05/18 Time of H&P: 22:51 Discharge Exam - Head Exam Head Exam: NORMAL INSPECTION - Eye Exam Eye Exam: EOMI, Normal appearance, PERRL - ENT Exam ENT Exam: Mucous Membranes Moist, Normal Exam Additional comments: No thrush - Neck Exam Neck exam: Full Rom - Respiratory Exam Respiratory Exam: NORMAL BREATHING PATTERN - Cardiovascular Exam Cardiovascular Exam: RRR, +S1, +S2 - GI/Abdominal Exam GI & Abdominal Exam: Normal Bowel Sounds - Extremities Exam Additional comments: Left deltoid cellulitis slightly erythmatous, warm to touch, patient has minor tenderness on active ROM - Neurological Exam Neurological exam: Alert, CN II-XII Intact, Oriented x3 - Skin Skin Exam: Erythema Additional comments: 1cm L gluteal abscess clean, pink, no induration or purulent drainage. Discharge Plan - Follow Up Plan Patient education suggested?: Yes
--- NOTE | 2018-07-10 08:00 | CP.PCM.DIS ---
Provider - Provider Date of Admission: 07/07/18 16:59 Attending physician: Trav Vanegas Diagnosis - Discharge Diagnosis (1) Abscess of buttock Status: Acute (2) Internal hemorrhoid Status: Acute (3) DVT prophylaxis Status: Acute Hospital Course - Lab Results Lab Results: Micro Results 07/05/18 20:05 Blood-Venous Blood Culture - Preliminary NO GROWTH AFTER 4 DAYS 07/05/18 19:50 Blood-Venous Blood Culture - Preliminary NO GROWTH AFTER 4 DAYS 07/06/18 19:22 Blood Blood Culture - Preliminary NO GROWTH AFTER 3 DAYS 07/06/18 19:12 Blood Blood Culture - Preliminary NO GROWTH AFTER 3 DAYS 07/07/18 22:15 Throat Group A Strep Throat Culture - Final NO BETA STREP GROUP A ISOLATED. 07/06/18 06:19 Urine,Clean Catch Urine Culture - Final No Growth (<1,000 CFU/ML) Most Recent Lab Values WBC 12.1 K/uL (4.8-10.8) H 07/10/18 05:05 RBC 4.34 Mil/uL (4.40-5.90) L 07/10/18 05:05 Hgb 13.0 g/dL (12.0-18.0) 07/10/18 05:05 Hct 38.5 % (35.0-51.0) 07/10/18 05:05 MCV 88.6 fl (80.0-94.0) 07/10/18 05:05 MCH 30.0 pg (27.0-31.0) 07/10/18 05:05 MCHC 33.8 g/dL (33.0-37.0) 07/10/18 05:05 RDW 13.1 % (11.5-14.5) 07/10/18 05:05 Plt Count 416 K/uL (130-400) H 07/10/18 05:05 MPV 7.5 fl (7.2-11.7) 07/08/18 06:12 Neut % (Auto) 82.2 % (50.0-75.0) H 07/08/18 06:12 Lymph % (Auto) 9.0 % (20.0-40.0) L 07/08/18 06:12 [place] % (Auto) 8.4 % (0.0-10.0) 07/08/18 06:12 Eos % (Auto) 0.1 % (0.0-4.0) 07/08/18 06:12 Baso % (Auto) 0.3 % (0.0-2.0) 07/08/18 06:12 Neut # (Auto) 13.6 K/uL (1.8-7.0) H 07/08/18 06:12 Lymph # (Auto) 1.5 K/uL (1.0-4.3) 07/08/18 06:12 [place] # (Auto) 1.4 K/uL (0.0-0.8) H 07/08/18 06:12 Eos # (Auto) 0.0 K/uL (0.0-0.7) 07/08/18 06:12 Baso # (Auto) 0.1 K/uL (0.0-0.2) 07/08/18 06:12 Neutrophils % (Manual) 83 % (42-75) H 07/08/18 06:12 Band Neutrophils % 2 % (0-2) 07/08/18 06:12 Lymphocytes % (Manual) 8 % (20-50) L 07/08/18 06:12 Monocytes % (Manual) 7 % (0-10) 07/08/18 06:12 Platelet Estimate Normal (NORMAL) 07/08/18 06:12 pO2 46 mm/Hg (30-55) 07/05/18 20:20 VBG pH 7.47 (7.32-7.43) H 07/05/18 20:20 VBG pCO2 36 mmHg (40-60) L 07/05/18 20:20 VBG HCO3 26.7 mmol/L 07/05/18 20:20 VBG Total CO2 27.3 mmol/L (22-28) 07/05/18 20:20 VBG O2 Sat (Calc) 79.2 % (40-65) H 07/05/18 20:20 VBG Base Excess 2.7 mmol/L (0.0-2.0) H 07/05/18 20:20 VBG Potassium 4.4 mmol/L (3.6-5.2) 07/05/18 20:20 Sodium 134.0 mmol/L (132-148) 07/05/18 20:20 Chloride 102.0 mmol/L (98-107) 07/05/18 20:20 Glucose 89 mg/dL (75-110) 07/05/18 20:20 Lactate 1.1 mmol/L (0.7-2.1) 07/05/18 20:20 FiO2 21.0 % 07/05/18 20:20 Sodium 138 mmol/l (132-148) 07/10/18 05:05 Potassium 4.0 MMOL/L (3.6-5.0) 07/10/18 05:05 Chloride 103 mmol/L (98-107) 07/10/18 05:05 Carbon Dioxide 29 mmol/L (22-30) 07/10/18 05:05 Anion Gap 10 (10-20) 07/10/18 05:05 BUN 15 mg/dl (9-20) 07/10/18 05:05 Creatinine 0.8 mg/dl (0.8-1.5) 07/10/18 05:05 Est GFR ( Amer) > 60 07/10/18 05:05 Est GFR (Non-Af Amer) > 60 07/10/18 05:05 Random Glucose 104 mg/dL (75-110) 07/10/18 05:05 Lactic Acid 1.7 MMOL/L (0.7-2.1) 07/06/18 19:22 Calcium 9.3 mg/dL (8.4-10.2) 07/10/18 05:05 Total Bilirubin 0.4 mg/dl (0.2-1.3) 07/05/18 19:50 AST 49 U/L (17-59) 07/05/18 19:50 ALT 36 U/L (21-72) 07/05/18 19:50 Alkaline Phosphatase 74 U/L (38-126) 07/05/18 19:50 Total Protein 7.7 G/DL (6.3-8.2) 07/05/18 19:50 Albumin 3.8 g/dL (3.5-5.0) 07/05/18 19:50 Globulin 3.9 gm/dL (2.2-3.9) 07/05/18 19:50 Albumin/Globulin Ratio 1.0 (1.0-2.1) 07/05/18 19:50 Procalcitonin 0.07 NG/ML (0.19-0.49) L 07/06/18 19:22 Venous Blood Potassium 4.4 mmol/L (3.6-5.2) 07/05/18 20:20 Urine Color Yellow (YELLOW) 07/06/18 06:19 Urine Clarity Slighty-cloudy (Clear) 07/06/18 06:19 Urine pH 5.0 (5.0-8.0) 07/06/18 06:19 Ur Specific [place] 1.019 (1.003-1.030) 07/06/18 06:19 Urine Protein Negative mg/dL (NEGATIVE) 07/06/18 06:19 Urine Glucose (UA) Neg mg/dL (Normal) 07/06/18 06:19 Urine Ketones Negative mg/dL (NEGATIVE) 07/06/18 06:19 Urine Blood Small (NEGATIVE) 07/06/18 06:19 Urine Nitrate Negative (NEGATIVE) 07/06/18 06:19 Urine Bilirubin Negative (NEGATIVE) 07/06/18 06:19 Urine Urobilinogen 0.2-1.0 mg/dL (0.2-1.0) 07/06/18 06:19 Ur Leukocyte Esterase Neg [place]/uL (Negative) 07/06/18 06:19 Urine RBC (Auto) 2 /hpf (0-3) 07/06/18 06:19 Urine Microscopic WBC 1 /hpf (0-5) 07/06/18 06:19 Ur Squamous Epith Cells < 1 /hpf (0-5) 07/06/18 06:19 Vancomycin Trough 10.8 ug/mL (5.0-10.0) H 07/10/18 05:05 IgG 1390.0 mg/dL (700.0-1600.0) 07/08/18 06:12 IgA 353.0 mg/dL (70.0-400.0) 07/08/18 06:12 IgM 70.6 mg/dL (40.0-230.0) 07/08/18 06:12 Complement C3 175.0 mg/dL (88.0-165.0) H 07/08/18 06:12 Complement C4 55.1 mg/dL (14.0-44.0) H 07/08/18 06:12 HIV 1&2 Antibody Screen Negative (NEGATIVE) 07/07/18 20:41 Influenza Typ A,B (EIA) Negative for flu a/b (NEGATIVE) 07/07/18 Unknown Grp A Beta Strep Ag Negative (NEGATIVE) 07/07/18 22:15 Discharge Exam - Head Exam Head Exam: NORMAL INSPECTION Discharge Plan - Discharge Medications Prescriptions: Ciprofloxacin [Cipro] 500 mg PO BID #20 tab Sulfamethoxazole/Trimethoprim [Bactrim DS 800 mg-160 mg] 1 tab PO BID #10 tab - Follow Up Plan Condition: FAIR Disposition: HOME/ ROUTINE
--- NOTE | 2018-07-10 10:10 | CP.PCM.PN ---
Subjective - Date & Time of Evaluation Date of Evaluation: 07/10/18 Time of Evaluation: 07:40 - Subjective Subjective: GI progress note for Dr. Hernandez Pt seen and examined at bedside this AM. Patient denies any abdominal pain, nausea, vomiting, or recent blood in his stool, tolerating his diet, no urinary symptoms. Objective - Vital Signs/Intake and Output Vital Signs (last 24 hours): Temp Pulse Resp BP Pulse Ox 97.9 F 78 18 101/67 98 07/10/18 08:11 07/10/18 08:11 07/10/18 08:11 07/10/18 08:11 07/10/18 08:11 - Medications Medications: Current Medications Acetaminophen (Tylenol 325mg Tab) 650 mg PO Q6 PRN PRN Reason: Pain, Mild (1-3) Last Admin: 07/09/18 14:44 Dose: 650 mg Acetaminophen (Tylenol 325mg Tab) 650 mg PO Q6 PRN PRN Reason: Temperature Last Admin: 07/08/18 16:39 Dose: 650 mg Benzocaine/Menthol (Cepacol Sore Throat) 1 jaziel PO Q3 PRN PRN Reason: Sore Throat Last Admin: 07/09/18 22:21 Dose: 1 jaziel Docusate Sodium (Colace) 100 mg PO BID SALMA Last Admin: 07/09/18 18:14 Dose: Not Given Enoxaparin Sodium (Lovenox) 40 mg SC DAILY SALMA PRN Reason: Protocol Last Admin: 07/09/18 08:52 Dose: 40 mg Hydrocortisone (Anusol-Hc) 1 applic OR BID [facility] Last Admin: 07/09/18 18:13 Dose: 1 applic Piperacillin Sod/Tazobactam (Sod 4.5 gm/ Sodium Chloride) 100 mls @ 100 mls/hr IVPB Q8 SALMA PRN Reason: Protocol Last Admin: 07/10/18 01:17 Dose: 100 mls/hr Vancomycin HCl 1 gm/ Sodium (Chloride) 250 mls @ 250 mls/hr IVPB Q8H SALMA PRN Reason: Protocol Last Admin: 07/10/18 05:11 Dose: 250 mls/hr Ibuprofen (Motrin Tab) 600 mg PO Q6 PRN PRN Reason: Pain, severe (8-10) Last Admin: 07/09/18 22:02 Dose: 600 mg Ibuprofen (Motrin Tab) 400 mg PO Q6 PRN PRN Reason: Pain, moderate (4-7) Last Admin: 07/07/18 14:55 Dose: 400 mg Lidocaine HCl (Xylocaine 2% (Uro-Jet)) 1 ea TOP ONCE PRN PRN Reason: Hemorrhoids Magnesium Hydroxide (Milk Of Magnesia) 30 ml PO DAILY PRN PRN Reason: Constipation Last Admin: 07/06/18 09:52 Dose: 30 ml Pantoprazole Sodium (Protonix Ec Tab) 40 mg PO DAILY SALMA Last Admin: 07/09/18 08:51 Dose: 40 mg - Labs Labs: 07/10/18 05:05 07/10/18 05:05 - Constitutional Appears: Well, Non-toxic, No Acute Distress - Head Exam Head Exam: ATRAUMATIC, NORMOCEPHALIC - Eye Exam Eye Exam: Normal appearance. absent: Conjunctival injection, Scleral icterus - ENT Exam ENT Exam: Mucous Membranes Moist, Normal Oropharynx - Respiratory Exam Respiratory Exam: NORMAL BREATHING PATTERN. absent: Accessory Muscle Use, Respiratory Distress - Cardiovascular Exam Cardiovascular Exam: RRR - Extremities Exam Extremities Exam: absent: Calf Tenderness, Pedal Edema, Tenderness - Neurological Exam Neurological Exam: Alert, Awake, Oriented x3 - Psychiatric Exam Psychiatric exam: Normal Affect, Normal Mood - Skin Skin Exam: Dry, Intact, Normal Color, Warm Assessment and Plan - Assessment and Plan (Free Text) Assessment: 53M admitted for fevers d/t recent buttock abscess with hemorrhoids and CT findings concerning for possible colovesicular fistula Plan: No clinical signs or symptoms of colovesicular fistula--no sign of diverticulitis on CT, no UTI, no abdominal pain Local lidocaine cream for hemorrhoid and recommend high fiber diet, sitz baths, and stool softeners on D/C Follow up with Dr. Hernandez in his office for possible colonoscopy--pt states he has history of colonoscopy with biopsy of lesion >5 years ago Follow up with urology for evaluation of bladder lesion, ideally prior to GI office visit No intervention or endoscopic evaluation necessary during this hospitalization if patient remains stable Discussed with Dr. Hernandez, who agrees with above Mely Holder, PGY2
[2018-07-10] MEDS: Hydrocortisone 2.5% (Rectal) CREAM PR SCH ×2 (10:37→18:48)
[2018-07-10] MEDS: Enoxaparin 40 mg Syringe SC SCH (10:40)
[2018-07-10] MEDS: Pantoprazole 40 mg EC Tab PO SCH (10:42)
[2018-07-10 15:52] VITALS: BP 101/67; PULSE 94; RESP 20; TEMP 97.8; O2SAT 98
== END 2018-07-10 19:35 | disposition home or self-care (01) | DRG 277 ==
LOC: H.ER 17:40 → INTOOBSV 22:50 → H.ERHOLD 22:50 → H.TEL 07-06 05:26 → OBSVTOIN 07-07 16:59 → H.TEL 07-07 21:48
PROVIDERS: ADMIT Internal Medicine; ATTEND Internal Medicine
PROC: 3E0234Z Introduction of Serum, Toxoid and Vaccine into Muscle, Percutaneous Approach (ICD-10-PCS; principal; 2018-07-06)
DX: L02.31 Cutaneous abscess of buttock (principal); L03.114 Cellulitis of left upper limb; T88.0XXA Infection following immunization, initial encounter; B95.62 Methicillin resistant Staphylococcus aureus infection as the cause of diseases classified elsewhere; L03.317 Cellulitis of buttock; Y84.8 Other medical procedures as the cause of abnormal reaction of the patient, or of later complication, without mention of misadventure at the time of the procedure; Y92.239 Unspecified place in hospital as the place of occurrence of the external cause; N40.0 Benign prostatic hyperplasia without lower urinary tract symptoms; N43.3 Hydrocele, unspecified; Z87.891 Personal history of nicotine dependence; J02.9 Acute pharyngitis, unspecified; E78.00 Pure hypercholesterolemia, unspecified; E78.5 Hyperlipidemia, unspecified; K57.30 Diverticulosis of large intestine without perforation or abscess without bleeding; K64.8 Other hemorrhoids; N50.9 Disorder of male genital organs, unspecified

== ENCOUNTER 2018-11-30 14:09 | Inpatient (IN) | payer MEDICAID, SELFPAY ==
[2018-11-30] MEDS ORDERED: Sodium Chloride 0.9% 1,000 ML IV STA (15:01)
[2018-11-30 15:37] LABS: VENOUS BLOOD GAS BASE EXCESS 1.4 mmol/L (0.0-2.0); VENOUS BLOOD GAS PCO2 52 mmHg (40-60); VENOUS BLOOD GAS PO2 21 mm/Hg (30-55); VENOUS BLOOD PH 7.34 (7.32-7.43)
[2018-11-30 15:50] LABS: BASO # 0.1 K/uL (0.0-0.2); BASO % 0.5 % (0.0-2.0); EOS # 0.1 K/uL (0.0-0.7); EOS % 0.8 % (0.0-4.0); HEMOGLOBIN 13.7 g/dL (12.0-18.0); LYMPH # 1.5 K/uL (1.0-4.3); LYMPH % 12.9 % (20.0-40.0); MEAN CELL VOLUME 88.1 fl (80.0-94.0); MEAN CORPUSCULAR HEMOGLOBIN 28.9 pg (27.0-31.0); MEAN CORPUSCULAR HGB CONC 32.8 g/dL (33.0-37.0); MEAN PLATELET VOLUME 8.1 fl (7.2-11.7); MONO # 0.8 K/uL (0.0-0.8); MONO % 6.8 % (0.0-10.0); NEUT # 9.2 K/uL (1.8-7.0); NRBC % 0.1 % (0.0-0.0); RBC 4.75 Mil/uL (4.40-5.90); RED CELL DISTRIBUTION WIDTH 13.3 % (11.5-14.5); WHITE BLOOD COUNT 11.7 K/uL (4.8-10.8)
[2018-11-30 15:52] LABS: SQUAMOUS EPITHIAL < 1 /hpf (0-5); URINE BILIRUBIN NEGATIVE (NEGATIVE); URINE BLOOD NEGATIVE (NEGATIVE); URINE CLARITY CLEAR (Clear); URINE COLOR YELLOW (YELLOW); URINE GLUCOSE (UA) NEG (NEGATIVE); URINE LEUKOCYTE ESTERASE NEG Leu/uL (Negative); URINE PROTEIN NEGATIVE (NEGATIVE); URINE UROBILINOGEN 0.2-1.0 mg/dL (0.2-1.0)
[2018-11-30 16:31] LABS: ALB/GLOB RATIO 1.1 (1.0-2.1); ALT/SGPT 22 U/L (21-72); AST/SGOT 25 U/L (17-59); BLOOD UREA NITROGEN 21 mg/dl (9-20); CALCIUM 9.3 mg/dL (8.4-10.2); GFR NON-AFRICAN AMERICAN > 60; LIPASE 86 U/L (23-300)
[2018-11-30] MEDS ORDERED: Morphine 4 MG/ML VIAL IV STA (17:34)
[2018-11-30] MEDS ORDERED: Morphine 4 MG/ML VIAL ONE ×2 (17:35→21:43)
[2018-11-30] MEDS ORDERED: Iohexol 300 100 ML IJ ONE (17:55)
[2018-11-30] MEDS ORDERED: Sodium Chloride 0.9% 50 ML IV ONE (17:55)
--- NOTE | 2018-11-30 18:48 | CT ---
Date of service: 11/30/2018 PROCEDURE: CT Abdomen and Pelvis with contrast HISTORY: r/o diverticulitis COMPARISON: CT abdomen pelvis with contrast performed 06/28/18 TECHNIQUE: Contrast dose: 95 mL Omnipaque 300 Radiation dose: Total exam DLP = 322.1 mGy-cm. This CT exam was performed using one or more of the following dose reduction techniques: Automated exposure control, adjustment of the mA and/or kV according to patient size, and/or use of iterative reconstruction technique. FINDINGS: LOWER THORAX: Mild bibasilar atelectasis. No visible pleural effusion or pneumothorax. Small hiatal hernia/distal esophageal wall thickening LIVER: 9 mm hepatic dome hypodensity too small to characterize. Right hepatic lobe 6 mm hepatic hypodensity, too small to characterize. GALLBLADDER AND BILE DUCTS: Unremarkable. PANCREAS: Unremarkable. SPLEEN: At least 2 sub cm probable splenules. Otherwise unremarkable unenhanced appearance. ADRENALS: Unremarkable. KIDNEYS AND URETERS: The kidneys enhance symmetrically. No hydronephrosis or obstructing calculus identified. VASCULATURE: No aortic aneurysm. No atherosclerotic calcification or mural plaque present. BOWEL: Stomach is nondistended. Lack of oral contrast limits evaluation for bowel pathology. Colonic wall thickening involving the distal left/sigmoid colon with associated inflammatory stranding consistent with acute diverticulitis. APPENDIX: The appendix appears within normal limits of caliber. No secondary signs of acute appendicitis. PERITONEUM: No significant free fluid. No definite free air. LYMPH NODES: No bulky adenopathy identified. BLADDER: Under distended urinary bladder. Asymmetric wall thickening of the urinary bladder. Focus of air within the urinary bladder. REPRODUCTIVE: The prostate gland measures approximately 3.9 x 4.8 cm. BONES: No acute osseous abnormality is detected. OTHER FINDINGS: None. IMPRESSION: Colonic wall thickening involving the distal left/sigmoid colon with associated inflammatory stranding consistent with acute diverticulitis. Focus of air within the urinary bladder with asymmetric wall thickening. Question possibility of fistulous connection to the adjacent sigmoid bowel. Infection/neoplasm considered. At least 2 hepatic hypodensities which are too small to characterize; a likely cysts or hemangiomas. Additional incidental findings as above.
--- NOTE | 2018-11-30 18:53 | ED PDOC ---
HPI: Abdomen Time Seen by Provider: 11/30/18 15:01 Chief Complaint (Nursing): Abdominal Pain Chief Complaint (Provider): abdominal pain History Per: Patient (53 y/o male here with left upper quadrant pain since last night associated with fever 103. Denies any vomiting/diarrhea/dysuria. Has otherwise had cough/cold x 1 week. ) Past Medical History Reviewed: Historical Data, Nursing Documentation, Vital Signs Vital Signs: Last Vital Signs Temp 98.8 F 11/30/18 14:43 Pulse 92 H 11/30/18 14:43 Resp 18 11/30/18 14:43 BP 130/86 11/30/18 14:43 Pulse Ox 99 11/30/18 14:43 - Medical History PMH: Benign Prostatic Hyperplasia, Hypercholesterolemia, Hyperlipidemia Denies: Chronic Kidney Disease - Family History Family History: States: Unknown Family Hx - Immunization History Hx Tetanus Toxoid Vaccination: Yes Hx Influenza Vaccination: No Hx Pneumococcal Vaccination: No - Home Medications Home Medications: Ambulatory Orders Medication Instructions Recorded Acetaminophen with Codeine 1 tab PO Q8H #10 tab 12/13/16 [Tylenol with Codeine No. 3 300 mg-30 mg] Docusate [Colace] 100 mg PO DAILY #10 cap 12/13/16 Hydrocortisone 2.5% (Rectal) 30 applic SD BID #1 tube 12/13/16 [Anusol-HC] Clotrimazole 1% Cream [Lotrimin 1%] 30 applic EXT BID #1 tube 07/03/18 Ibuprofen [Motrin Tab] 600 mg PO Q6 PRN #15 tab 07/03/18 Ciprofloxacin [Cipro] 500 mg PO BID #20 tab 07/06/18 Sulfamethoxazole/Trimethoprim 1 tab PO BID #10 tab 07/06/18 [Bactrim DS 800 mg-160 mg] - Allergies Allergies/Adverse Reactions: Allergies Allergy/AdvReac Type Severity Reaction Status Date / Time Peaches Allergy ITCHING Uncoded 07/05/18 17:55 Review of Systems ROS Statement: Except As Marked, All Systems Reviewed And Found Negative Physical Exam - Reviewed Nursing Documentation Reviewed: Yes Vital Signs Reviewed: Yes - Physical Exam Appears: Positive for: Well, Non-toxic, No Acute Distress Head Exam: Positive for: ATRAUMATIC, NORMAL INSPECTION, NORMOCEPHALIC Skin: Positive for: Normal Color, Warm, DRY Eye Exam: Positive for: EOMI, Normal appearance, PERRL ENT: Positive for: Normal ENT Inspection Neck: Positive for: Normal, Painless ROM Cardiovascular/Chest: Positive for: Regular Rate, Rhythm Respiratory: Positive for: CNT, Normal Breath Sounds Gastrointestinal/Abdominal: Positive for: Normal Exam, Soft, Tenderness (LLQ) Back: Positive for: Normal Inspection Extremity: Positive for: Normal ROM Neurologic/Psych: Positive for: Alert, Oriented - Laboratory Results Result Diagrams: 11/30/18 15:20 11/30/18 15:20 Lab Results: pO2 21 mm/Hg (30-55) L 11/30/18 15:33 VBG pH 7.34 (7.32-7.43) 11/30/18 15:33 VBG pCO2 52 mmHg (40-60) 11/30/18 15:33 VBG HCO3 24.2 mmol/L 11/30/18 15:33 VBG Total CO2 29.7 mmol/L (22-28) H 11/30/18 15:33 VBG O2 Sat (Calc) 29.3 % (40-65) L 11/30/18 15:33 VBG Base Excess 1.4 mmol/L (0.0-2.0) 11/30/18 15:33 VBG Potassium 4.1 mmol/L (3.6-5.2) 11/30/18 15:33 Sodium 137.0 mmol/L (132-148) 11/30/18 15:33 Chloride 106.0 mmol/L (98-107) 11/30/18 15:33 Glucose 95 mg/dL (75-110) 11/30/18 15:33 Lactate 0.8 mmol/L (0.7-2.1) 11/30/18 15:33 FiO2 21.0 % 11/30/18 15:33 Total Bilirubin 0.4 mg/dl (0.2-1.3) 11/30/18 15:20 AST 25 U/L (17-59) 11/30/18 15:20 ALT 22 U/L (21-72) 11/30/18 15:20 Alkaline Phosphatase 64 U/L (38-126) 11/30/18 15:20 Total Protein 7.6 G/DL (6.3-8.2) 11/30/18 15:20 Albumin 4.0 g/dL (3.5-5.0) 11/30/18 15:20 Globulin 3.6 gm/dL (2.2-3.9) 11/30/18 15:20 Albumin/Globulin Ratio 1.1 (1.0-2.1) 11/30/18 15:20 Lipase 86 U/L (23-300) 11/30/18 15:20 Urine Color Yellow (YELLOW) 11/30/18 15:24 Urine Clarity Clear (Clear) 11/30/18 15:24 Urine pH 6.0 (5.0-8.0) 11/30/18 15:24 Ur Specific [place] 1.028 (1.003-1.030) 11/30/18 15:24 Urine Protein Negative mg/dL (NEGATIVE) 11/30/18 15:24 Urine Glucose (UA) Neg mg/dL (NEGATIVE) 11/30/18 15:24 Urine Ketones Negative mg/dL (NEGATIVE) 11/30/18 15:24 Urine Blood Negative (NEGATIVE) 11/30/18 15:24 Urine Nitrate Negative (NEGATIVE) 11/30/18 15:24 Urine Bilirubin Negative (NEGATIVE) 11/30/18 15:24 Urine Urobilinogen 0.2-1.0 mg/dL (0.2-1.0) 11/30/18 15:24 Ur Leukocyte Esterase Neg [place]/uL (Negative) 11/30/18 15:24 Urine RBC (Auto) 5 /hpf (0-3) H 11/30/18 15:24 Urine Microscopic WBC < 1 /hpf (0-5) 11/30/18 15:24 Ur Squamous Epith Cells < 1 /hpf (0-5) 11/30/18 15:24 Urine dip results: Negative for: Leukocyte Esterase, Blood, Nitrate, Ketones, Glucose, Bilirubin - ECG O2 Sat by Pulse Oximetry: 99 - Progress ED Course And Treament: toradol 15 mg iv x 1 dose NS 1 liter wide open morphine 4 mg iv x [address] abd/pelvis IMPRESSION: Colonic wall thickening involving the distal left/sigmoid colon with associated inflammatory stranding consistent with acute diverticulitis. Focus of air within the urinary bladder with asymmetric wall thickening. Question possibility of fistulous connection to the adjacent sigmoid bowel. Infection/neoplasm considered. At least 2 hepatic hypodensities which are too small to characterize; a likely cysts or hemangiomas. Additional incidental findings as above. zosyn 3.375gm iv x 1 dose d/w Dr. Calderón Disposition - Clinical Impression Clinical Impression: Diverticulitis - Patient ED Disposition Is Patient to be Admitted: No - Disposition Disposition: Routine/Home Disposition Time: 18:59 Condition: FAIR - Pt Status Changed To: Hospital Disposition Of: Observation
[2018-11-30] MEDS ORDERED: Piperacillin/Tazobact 3.375 GM in Sodium Chloride 0.9% 100 ML IVPB STA (18:58)
--- NOTE | 2018-11-30 19:34 | CP.PCM.HP ---
<Ronald Timmons - Last Filed: 11/30/18 20:01> History of Present Illness - History of Present Illness History of Present Illness: 53 yo M with no significant pmhx presents with abdominal pain. Pt states that since yesterday, he has felt LLQ, sharp, stabbing pain rated 10/10, constant, localized, Aggravated with movement. Alleviated with direct pressure. Denies current N/V, dysuria, hematochezia, melena, Last bowel movement was today with two episodes of diarrhea. PMD: none pmhx: none Soc: one cig/day; social alcohol, Denies illicit drugs Rx: none Surg: none Famhx: none NKDA Present on Admission - Present on Admission Any Indicators Present on Admission: No History of Uncontrolled Diabetes: No Urinary Catheter: No Review of Systems - Cardiovascular Cardiovascular: absent: Chest Pain, Chest Pain at Rest - Respiratory Respiratory: absent: Cough, Dyspnea - Gastrointestinal Gastrointestinal: Abdominal Pain, Change in Bowel Habits, Change in Stool Character, Diarrhea. absent: Hematemesis, Hematochezia, Melena, Nausea, Vomit ing - Genitourinary Genitourinary: Urinary Frequency - Musculoskeletal Musculoskeletal: absent: Abnormal Gait Past Patient History - Past Medical History & Family History Past Medical History?: Yes - Past Social History Smoking Status: Light Smoker < 10 Cigarettes Daily Alcohol: Social Drugs: Denies Home Situation {Lives}: With Family - CARDIAC Hx Hypercholesterolemia: Yes - PULMONARY Hx Respiratory Disorders: No - NEUROLOGICAL Hx Neurological Disorder: No - HEENT Hx HEENT Problems: Yes Other/Comment: EYE GLASSES - RENAL Hx Chronic Kidney Disease: No - ENDOCRINE/METABOLIC Hx Endocrine Disorders: No - HEMATOLOGICAL/ONCOLOGICAL Hx Blood Disorders: No - INTEGUMENTARY Hx Dermatological Problems: No - MUSCULOSKELETAL/RHEUMATOLOGICAL Hx Musculoskeletal Disorders: Yes Hx Falls: Yes - GASTROINTESTINAL Hx Gastrointestinal Disorders: No - GENITOURINARY/GYNECOLOGICAL Hx Genitourinary Disorders: No - PSYCHIATRIC Hx Psychophysiologic Disorder: No Hx Substance Use: No - SURGICAL HISTORY Hx Surgeries: No - ANESTHESIA Hx Anesthesia: No Hx Anesthesia Reactions: No Hx Malignant Hyperthermia: No Meds Allergies/Adverse Reactions: Allergies Allergy/AdvReac Type Severity Reaction Status Date / Time Peaches Allergy ITCHING Uncoded 07/05/18 17:55 Physical Exam - Eye Exam Eye Exam: EOMI - ENT Exam ENT Exam: Mucous Membranes Moist - Respiratory Exam Respiratory Exam: Clear to Auscultation Bilateral, NORMAL BREATHING PATTERN. absent: Wheezes - Cardiovascular Exam Cardiovascular Exam: REGULAR RHYTHM, +S1, +S2 - GI/Abdominal Exam GI & Abdominal Exam: Normal Bowel Sounds, Soft, Tenderness (LLQ pain to palpation; positive grimacing. ) - Extremities Exam Extremities exam: Negative for: calf tenderness - Neurological Exam Neurological exam: Alert, CN II-XII Intact, Oriented x3 - Psychiatric Exam Psychiatric exam: Normal Affect, Normal Mood Results - Vital Signs Recent Vital Signs: Last Vital Signs Temp 98.8 F 11/30/18 14:43 Pulse 92 H 11/30/18 14:43 Resp 18 11/30/18 14:43 BP 130/86 11/30/18 14:43 Pulse Ox 99 11/30/18 19:00 - Labs Result Diagrams: 11/30/18 15:20 11/30/18 15:20 Labs: Laboratory Results - last 24 hr 11/30/18 11/30/18 11/30/18 15:20 15:20 15:24 WBC 11.7 H RBC 4.75 Hgb 13.7 Hct 41.8 MCV 88.1 MCH 28.9 MCHC 32.8 L RDW 13.3 Plt Count 282 D MPV 8.1 Neut % (Auto) 79.0 H Lymph % (Auto) 12.9 L Br[place] % (Auto) 6.8 Eos % (Auto) 0.8 Baso % (Auto) 0.5 Neut # (Auto) 9.2 H Lymph # (Auto) 1.5 Br[place] # (Auto) 0.8 Eos # (Auto) 0.1 Baso # (Auto) 0.1 pO2 VBG pH VBG pCO2 VBG HCO3 VBG Total CO2 VBG O2 Sat (Calc) VBG Base Excess VBG Potassium Glucose Lactate FiO2 Sodium 134 Potassium 4.0 Chloride 103 Carbon Dioxide 25 Anion Gap 10 BUN 21 H Creatinine 0.8 Est GFR ( Amer) > 60 Est GFR (Non-Af Amer) > 60 Random Glucose 100 Calcium 9.3 Total Bilirubin 0.4 AST 25 ALT 22 Alkaline Phosphatase 64 Total Protein 7.6 Albumin 4.0 Globulin 3.6 Albumin/Globulin Ratio 1.1 Lipase 86 Venous Blood Potassium Urine Color Yellow Urine Clarity Clear Urine pH 6.0 Ur Specific [place] 1.028 Urine Protein Negative Urine Glucose (UA) Neg Urine Ketones Negative Urine Blood Negative Urine Nitrate Negative Urine Bilirubin Negative Urine Urobilinogen 0.2-1.0 Ur Leukocyte Esterase Neg Urine RBC (Auto) 5 H Urine Microscopic WBC < 1 Ur Squamous Epith Cells < 1 Influenza Typ A,B (EIA) 11/30/18 11/30/18 15:33 16:00 WBC RBC Hgb Hct MCV MCH MCHC RDW Plt Count MPV Neut % (Auto) Lymph % (Auto) Br[place] % (Auto) Eos % (Auto) Baso % (Auto) Neut # (Auto) Lymph # (Auto) [place] # (Auto) Eos # (Auto) Baso # (Auto) pO2 21 L VBG pH 7.34 VBG pCO2 52 VBG HCO3 24.2 VBG Total CO2 29.7 H VBG O2 Sat (Calc) 29.3 L VBG Base Excess 1.4 VBG Potassium 4.1 Glucose 95 Lactate 0.8 FiO2 21.0 Sodium 137.0 Potassium Chloride 106.0 Carbon Dioxide Anion Gap BUN Creatinine Est GFR ( Amer) Est GFR (Non-Af Amer) Random Glucose Calcium Total Bilirubin AST ALT Alkaline Phosphatase Total Protein Albumin Globulin Albumin/Globulin Ratio Lipase Venous Blood Potassium 4.1 Urine Color Urine Clarity Urine pH Ur Specific [place] Urine Protein Urine Glucose (UA) Urine Ketones Urine Blood Urine Nitrate Urine Bilirubin Urine Urobilinogen Ur Leukocyte Esterase Urine RBC (Auto) Urine Microscopic WBC Ur Squamous Epith Cells Influenza Typ A,B (EIA) Negative for flu a/b Assessment & Plan - Assessment and Plan (Free Text) Assessment: 53 yo M with no significant pmhx admitted for acute diverticulitis Plan: CT A/P: Colonic wall thickening involving the distal left/sigmoid colon with associated inflammatory stranding consistent with acute diverticulitis. Focus of air within the urinary bladder with asymmetric wall thickening. Question possibility of fistulous connection to the adjacent sigmoid bowel. Infection/neoplasm considered. At least 2 hepatic hypodensities which are too small to characterize; a likely cysts or hemangiomas. Acute Diverticulitis IVABX: c/w Zosyn IVF NS Pain management clear liquid diet f/u am labs, blood/urine cultures DVT/GI prophylaxis SCD Pantoprazole Case and plan d/w Dr. Calderón. Ronald Timmons MD PGY2 <Rickie Calderón D - Last Filed: 12/01/18 09:30> Results - Vital Signs Recent Vital Signs: Last Vital Signs Temp 98.7 F 12/01/18 05:15 Pulse 83 11/30/18 23:58 Resp 18 11/30/18 23:58 BP 111/68 11/30/18 23:58 Pulse Ox 98 11/30/18 23:58 - Labs Result Diagrams: 12/01/18 05:50 12/01/18 05:50 Labs: Laboratory Results - last 24 hr 11/30/18 11/30/18 11/30/18 15:20 15:20 15:24 WBC 11.7 H RBC 4.75 Hgb 13.7 Hct 41.8 MCV 88.1 MCH 28.9 MCHC 32.8 L RDW 13.3 Plt Count 282 D MPV 8.1 Neut % (Auto) 79.0 H Lymph % (Auto) 12.9 L [place] % (Auto) 6.8 Eos % (Auto) 0.8 Baso % (Auto) 0.5 Neut # (Auto) 9.2 H Lymph # (Auto) 1.5 [place] # (Auto) 0.8 Eos # (Auto) 0.1 Baso # (Auto) 0.1 pO2 VBG pH VBG pCO2 VBG HCO3 VBG Total CO2 VBG O2 Sat (Calc) VBG Base Excess VBG Potassium Glucose Lactate FiO2 Sodium 134 Potassium 4.0 Chloride 103 Carbon Dioxide 25 Anion Gap 10 BUN 21 H Creatinine 0.8 Est GFR ( Amer) > 60 Est GFR (Non-Af Amer) > 60 Random Glucose 100 Calcium 9.3 Total Bilirubin 0.4 AST 25 ALT 22 Alkaline Phosphatase 64 Total Protein 7.6 Albumin 4.0 Globulin 3.6 Albumin/Globulin Ratio 1.1 Lipase 86 Venous Blood Potassium Urine Color Yellow Urine Clarity Clear Urine pH 6.0 Ur Specific [place] 1.028 Urine Protein Negative Urine Glucose (UA) Neg Urine Ketones Negative Urine Blood Negative Urine Nitrate Negative Urine Bilirubin Negative Urine Urobilinogen 0.2-1.0 Ur Leukocyte Esterase Neg Urine RBC (Auto) 5 H Urine Microscopic WBC < 1 Ur Squamous Epith Cells < 1 Influenza Typ A,B (EIA) 11/30/18 11/30/18 12/01/18 15:33 16:00 05:50 WBC 12.4 H RBC 4.26 L Hgb 12.3 Hct 37.0 MCV 87.0 MCH 28.8 MCHC 33.2 RDW 12.9 Plt Count 266 MPV 8.4 Neut % (Auto) 78.3 H Lymph % (Auto) 13.3 L [place] % (Auto) 7.8 Eos % (Auto) 0.3 Baso % (Auto) 0.3 Neut # (Auto) 9.7 H Lymph # (Auto) 1.6 [place] # (Auto) 1.0 H Eos # (Auto) 0.0 Baso # (Auto) 0.0 pO2 21 L VBG pH 7.34 VBG pCO2 52 VBG HCO3 24.2 VBG Total CO2 29.7 H VBG O2 Sat (Calc) 29.3 L VBG Base Excess 1.4 VBG Potassium 4.1 Glucose 95 Lactate 0.8 FiO2 21.0 Sodium 137.0 Potassium Chloride 106.0 Carbon Dioxide Anion Gap BUN Creatinine Est GFR ( Amer) Est GFR (Non-Af Amer) Random Glucose Calcium Total Bilirubin AST ALT Alkaline Phosphatase Total Protein Albumin Globulin Albumin/Globulin Ratio Lipase Venous Blood Potassium 4.1 Urine Color Urine Clarity Urine pH Ur Specific [place] Urine Protein Urine Glucose (UA) Urine Ketones Urine Blood Urine Nitrate Urine Bilirubin Urine Urobilinogen Ur Leukocyte Esterase Urine RBC (Auto) Urine Microscopic WBC Ur Squamous Epith Cells Influenza Typ A,B (EIA) Negative for flu a/b 12/01/18 05:50 WBC RBC Hgb Hct MCV MCH MCHC RDW Plt Count MPV Neut % (Auto) Lymph % (Auto) [place] % (Auto) Eos % (Auto) Baso % (Auto) Neut # (Auto) Lymph # (Auto) [place] # (Auto) Eos # (Auto) Baso # (Auto) pO2 VBG pH VBG pCO2 VBG HCO3 VBG Total CO2 VBG O2 Sat (Calc) VBG Base Excess VBG Potassium Glucose Lactate FiO2 Sodium 135 Potassium 3.8 Chloride 105 Carbon Dioxide 24 Anion Gap 10 BUN 13 Creatinine 1.0 Est GFR ( Amer) > 60 Est GFR (Non-Af Amer) > 60 Random Glucose 84 Calcium 8.6 Total Bilirubin AST ALT Alkaline Phosphatase Total Protein Albumin Globulin Albumin/Globulin Ratio Lipase Venous Blood Potassium Urine Color Urine Clarity Urine pH Ur Specific [place] Urine Protein Urine Glucose (UA) Urine Ketones Urine Blood Urine Nitrate Urine Bilirubin Urine Urobilinogen Ur Leukocyte Esterase Urine RBC (Auto) Urine Microscopic WBC Ur Squamous Epith Cells Influenza Typ A,B (EIA) Attending/Attestation - Attestation I have personally seen and examined this patient.: Yes I have fully participated in the care of the patient.: Yes I have reviewed all pertinent clinical information: Yes Notes (Text): 12/01/18 09:29 Patient seen and examined with resident. Case discussed and agreed with as sessment and plan of management.
[2018-11-30] MEDS ORDERED: Sodium Chloride 0.9% 1,000 ML IV SCH (19:45)
[2018-11-30] MEDS ORDERED: Piperacillin/Tazobact 3.375 gm Inj IVPB ONE (20:16)
[2018-11-30] MEDS ORDERED: Morphine 4 MG/ML VIAL IVP PRN ×3 (21:40→22:00)
[2018-11-30] MEDS ORDERED: Piperacillin/Tazobact 3.375 GM in Sodium Chloride 0.9% 100 ML IVPB ONE (22:00)
[2018-12-01] MEDS: Piperacillin/Tazobact 3.375 GM in Sodium Chloride 0.9% 100 ML IVPB SCH ×3 (02:21→13:58)
[2018-12-01 06:44] LABS: BASO % 0.3 % (0.0-2.0); EOS % 0.3 % (0.0-4.0); HEMOGLOBIN 12.3 g/dL (12.0-18.0); LYMPH # 1.6 K/uL (1.0-4.3); LYMPH % 13.3 % (20.0-40.0); MEAN CORPUSCULAR HEMOGLOBIN 28.8 pg (27.0-31.0); MEAN CORPUSCULAR HGB CONC 33.2 g/dL (33.0-37.0); MEAN PLATELET VOLUME 8.4 fl (7.2-11.7); MONO % 7.8 % (0.0-10.0); NEUT # 9.7 K/uL (1.8-7.0); NEUT % 78.3 % (50.0-75.0); NRBC % 0.1 % (0.0-0.0); RBC 4.26 Mil/uL (4.40-5.90); RED CELL DISTRIBUTION WIDTH 12.9 % (11.5-14.5); WHITE BLOOD COUNT 12.4 K/uL (4.8-10.8)
[2018-12-01 07:43] LABS: BLOOD UREA NITROGEN 13 mg/dl (9-20); CALCIUM 8.6 mg/dL (8.4-10.2); GFR NON-AFRICAN AMERICAN > 60
[2018-12-01] MEDS ORDERED: Pantoprazole 40 mg EC Tab PO SCH (09:00)
[2018-12-01 09:39] VITALS: O2SAT 97
--- NOTE | 2018-12-01 11:52 | CP.PCM.CON ---
History of Present Illness - History of Present Illness History of Present Illness: 53yo M presented with acute onset of sharp left lower quadrant pain non radiating which is worst with movement. +fever. Denies any nausea, vomting, sob, cp, diarrhea, dysuria, hematuria, weight loss. Previous colonoscopy about 3 yrs ago - states polyps were removed Review of Systems - Review of Systems Systems not reviewed;Unavailable: Acuity of Condition - Constitutional Constitutional: As Per HPI, Fever. absent: Anorexia, Chills, Headache, Increased Appetite, Weight Loss - EENT Eyes: As Per HPI. absent: Blurred Vision Nose/Mouth/Throat: absent: Nasal Discharge - Cardiovascular Cardiovascular: As Per HPI. absent: Chest Pain, Chest Pain with Activity, Claudication, Edema - Respiratory Respiratory: As Per HPI. absent: Cough, Dyspnea, Hemoptysis, Dyspnea on Exertion - Gastrointestinal Gastrointestinal: As Per HPI, Abdominal Pain. absent: Bloating, Change in Bowel Habits, Change in Stool Character, Coffee Ground Emesis, Melena, Nausea, Vomiting - Genitourinary Genitourinary: Difficulty Urinating. absent: Dysuria, Flank Pain, Hematuria, Pyuria - Neurological Neurological: As Per HPI - Psychiatric Psychiatric: As Per HPI Past Patient History - Past Medical History & Family History Past Medical History?: Yes - Past Social History Smoking Status: Light Smoker < 10 Cigarettes Daily - CARDIAC Hx Cardiac Disorders: Yes Hx Hypercholesterolemia: Yes Hx Hypertension: No - PULMONARY Hx Respiratory Disorders: No - NEUROLOGICAL Hx Neurological Disorder: No - HEENT Hx HEENT Problems: Yes Other/Comment: reports he needs eyeglasses but has not had his eyes checked - RENAL Hx Chronic Kidney Disease: No - ENDOCRINE/METABOLIC Hx Endocrine Disorders: No Hx Diabetes Mellitus Type 2: No - HEMATOLOGICAL/ONCOLOGICAL Hx Blood Disorders: No Hx AIDS: No Hx Hepatitis C: No Hx Human Immunodeficiency Virus (HIV): No - INTEGUMENTARY Hx Dermatological Problems: Yes Hx Cellulitis: Yes (reports last admission for cellulitis to R buttocks) - MUSCULOSKELETAL/RHEUMATOLOGICAL Hx Musculoskeletal Disorders: No Hx Falls: No - GASTROINTESTINAL Hx Gastrointestinal Disorders: No - GENITOURINARY/GYNECOLOGICAL Hx Genitourinary Disorders: Yes Hx Prostate Problems: Yes - PSYCHIATRIC Hx Psychophysiologic Disorder: No Hx Substance Use: No - SURGICAL HISTORY Hx Surgeries: Yes Other/Comment: I & D of abscess to R buttocks by bedside Jun 2018 - ANESTHESIA Hx Anesthesia: Yes Hx Anesthesia Reactions: No Hx Malignant Hyperthermia: No Meds Allergies/Adverse Reactions: Allergies Allergy/AdvReac Type Severity Reaction Status Date / Time [place] Allergy ITCHING Uncoded 07/05/18 17:55 - Medications Medications: Current Medications Acetaminophen (Tylenol 325mg Tab) 650 mg PO Q4 PRN PRN Reason: Fever >100.4 F Last Admin: 11/30/18 21:10 Dose: 650 mg Sodium Chloride (Sodium Chloride 0.9%) 1,000 mls @ 100 mls/hr IV .Q10H [facility] Last Admin: 11/30/18 21:35 Dose: 100 mls/hr Piperacillin Sod/Tazobactam (Sod 3.375 gm/ Sodium Chloride) 100 mls @ 100 mls/hr IVPB 0200,0800,1400,2000 [facility]; Protocol Last Admin: 12/01/18 09:33 Dose: 100 mls/hr Morphine Sulfate (Morphine) 2 mg IVP Q4 PRN PRN Reason: Pain, moderate (4-7) Last Admin: 12/01/18 04:14 Dose: 2 mg Morphine Sulfate (Morphine) 1 mg IVP Q4 PRN PRN Reason: Pain, Mild (1-3) Morphine Sulfate (Morphine) 4 mg IVP Q4 PRN PRN Reason: Pain, severe (8-10) Ondansetron HCl (Zofran Inj) 4 mg IVP Q6 PRN PRN Reason: Nausea/Vomiting Pantoprazole Sodium (Protonix Ec Tab) 40 mg PO DAILY [facility] Last Admin: 12/01/18 09:33 Dose: 40 mg Physical Exam - Constitutional Appears: Well, No Acute Distress - Head Exam Head Exam: ATRAUMATIC, NORMAL INSPECTION, NORMOCEPHALIC - Eye Exam Eye Exam: EOMI, Normal appearance, PERRL - ENT Exam ENT Exam: Normal Exam - Neck Exam Neck exam: Positive for: Normal Inspection. Negative for: Lymphadenopathy - Respiratory Exam Respiratory Exam: Clear to Auscultation Bilateral, NORMAL BREATHING PATTERN. absent: Accessory Muscle Use, Chest Wall Tenderness, Decreased Breath Sounds, Wheezes - Cardiovascular Exam Cardiovascular Exam: +S1, +S2. absent: Tachycardia - GI/Abdominal Exam GI & Abdominal Exam: Normal Bowel Sounds, Soft, Tenderness. absent: Distended, Firm, Guarding, Hernia Additional comments: LLQ to pain to palpation, no rebound or guarding, no peritoneal signs - Rectal Exam Rectal Exam: Deferred - Extremities Exam Extremities exam: Positive for: full ROM - Neurological Exam Neurological exam: CN II-XII Intact, Oriented x3 - Psychiatric Exam Psychiatric exam: Normal Affect - Skin Skin Exam: Normal Color Results - Vital Signs Recent Vital Signs: Last Vital Signs Temp 98.4 F 12/01/18 09:00 Pulse 93 H 12/01/18 09:00 Resp 20 12/01/18 09:00 BP 116/77 12/01/18 09:00 Pulse Ox 97 12/01/18 09:00 - Labs Result Diagrams: 12/01/18 05:50 12/01/18 05:50 Labs: Laboratory Results - last 24 hr 11/30/18 11/30/18 11/30/18 15:20 15:20 15:24 WBC 11.7 H RBC 4.75 Hgb 13.7 Hct 41.8 MCV 88.1 MCH 28.9 MCHC 32.8 L RDW 13.3 Plt Count 282 D MPV 8.1 Neut % (Auto) 79.0 H Lymph % (Auto) 12.9 L [place] % (Auto) 6.8 Eos % (Auto) 0.8 Baso % (Auto) 0.5 Neut # (Auto) 9.2 H Lymph # (Auto) 1.5 [place] # (Auto) 0.8 Eos # (Auto) 0.1 Baso # (Auto) 0.1 pO2 VBG pH VBG pCO2 VBG HCO3 VBG Total CO2 VBG O2 Sat (Calc) VBG Base Excess VBG Potassium Glucose Lactate FiO2 Sodium 134 Potassium 4.0 Chloride 103 Carbon Dioxide 25 Anion Gap 10 BUN 21 H Creatinine 0.8 Est GFR ( Amer) > 60 Est GFR (Non-Af Amer) > 60 Random Glucose 100 Calcium 9.3 Total Bilirubin 0.4 AST 25 ALT 22 Alkaline Phosphatase 64 Total Protein 7.6 Albumin 4.0 Globulin 3.6 Albumin/Globulin Ratio 1.1 Lipase 86 Venous Blood Potassium Urine Color Yellow Urine Clarity Clear Urine pH 6.0 Ur Specific [place] 1.028 Urine Protein Negative Urine Glucose (UA) Neg Urine Ketones Negative Urine Blood Negative Urine Nitrate Negative Urine Bilirubin Negative Urine Urobilinogen 0.2-1.0 Ur Leukocyte Esterase Neg Urine RBC (Auto) 5 H Urine Microscopic WBC < 1 Ur Squamous Epith Cells < 1 Influenza Typ A,B (EIA) 11/30/18 11/30/18 12/01/18 15:33 16:00 05:50 WBC 12.4 H RBC 4.26 L Hgb 12.3 Hct 37.0 MCV 87.0 MCH 28.8 MCHC 33.2 RDW 12.9 Plt Count 266 MPV 8.4 Neut % (Auto) 78.3 H Lymph % (Auto) 13.3 L [place] % (Auto) 7.8 Eos % (Auto) 0.3 Baso % (Auto) 0.3 Neut # (Auto) 9.7 H Lymph # (Auto) 1.6 [place] # (Auto) 1.0 H Eos # (Auto) 0.0 Baso # (Auto) 0.0 pO2 21 L VBG pH 7.34 VBG pCO2 52 VBG HCO3 24.2 VBG Total CO2 29.7 H VBG O2 Sat (Calc) 29.3 L VBG Base Excess 1.4 VBG Potassium 4.1 Glucose 95 Lactate 0.8 FiO2 21.0 Sodium 137.0 Potassium Chloride 106.0 Carbon Dioxide Anion Gap BUN Creatinine Est GFR ( Amer) Est GFR (Non-Af Amer) Random Glucose Calcium Total Bilirubin AST ALT Alkaline Phosphatase Total Protein Albumin Globulin Albumin/Globulin Ratio Lipase Venous Blood Potassium 4.1 Urine Color Urine Clarity Urine pH Ur Specific [place] Urine Protein Urine Glucose (UA) Urine Ketones Urine Blood Urine Nitrate Urine Bilirubin Urine Urobilinogen Ur Leukocyte Esterase Urine RBC (Auto) Urine Microscopic WBC Ur Squamous Epith Cells Influenza Typ A,B (EIA) Negative for flu a/b 12/01/18 05:50 WBC RBC Hgb Hct MCV MCH MCHC RDW Plt Count MPV Neut % (Auto) Lymph % (Auto) [place] % (Auto) Eos % (Auto) Baso % (Auto) Neut # (Auto) Lymph # (Auto) [place] # (Auto) Eos # (Auto) Baso # (Auto) pO2 VBG pH VBG pCO2 VBG HCO3 VBG Total CO2 VBG O2 Sat (Calc) VBG Base Excess VBG Potassium Glucose Lactate FiO2 Sodium 135 Potassium 3.8 Chloride 105 Carbon Dioxide 24 Anion Gap 10 BUN 13 Creatinine 1.0 Est GFR ( Amer) > 60 Est GFR (Non-Af Amer) > 60 Random Glucose 84 Calcium 8.6 Total Bilirubin AST ALT Alkaline Phosphatase Total Protein Albumin Globulin Albumin/Globulin Ratio Lipase Venous Blood Potassium Urine Color Urine Clarity Urine pH Ur Specific [place] Urine Protein Urine Glucose (UA) Urine Ketones Urine Blood Urine Nitrate Urine Bilirubin Urine Urobilinogen Ur Leukocyte Esterase Urine RBC (Auto) Urine Microscopic WBC Ur Squamous Epith Cells Influenza Typ A,B (EIA) Assessment & Plan - Assessment and Plan (Free Text) Assessment: 53yo M with diverticulitis -pain control -IVF -clear liquid diet - antibiotics -GI eval -will monitor clinically, no acute surgical intervention
--- NOTE | 2018-12-01 14:02 | CP.PCM.PN ---
<Cande Pisano - Last Filed: 12/01/18 14:52> Subjective - Date & Time of Evaluation Date of Evaluation: 12/01/18 Time of Evaluation: 14:02 - Subjective Subjective: Patient seen bedside lying comfortably in bed. No new complaints, reports abdominal pain has subsided to 2-3/10, down from 10/10 on admission. Denies dysuria, hematuria, blood in stool, diarrhea, constipation, chest pain, fever, chills and shortness of breath. Objective - Vital Signs/Intake and Output Vital Signs (last 24 hours): Temp Pulse Resp BP Pulse Ox 98.4 F 93 H 20 116/77 97 12/01/18 09:00 12/01/18 09:00 12/01/18 09:00 12/01/18 09:00 12/01/18 09:00 - Medications Medications: Current Medications Acetaminophen (Tylenol 325mg Tab) 650 mg PO Q4 PRN PRN Reason: Fever >100.4 F Last Admin: 11/30/18 21:10 Dose: 650 mg Sodium Chloride (Sodium Chloride 0.9%) 1,000 mls @ 100 mls/hr IV .Q10H [facility] Last Admin: 11/30/18 21:35 Dose: 100 mls/hr Piperacillin Sod/Tazobactam (Sod 3.375 gm/ Sodium Chloride) 100 mls @ 100 m ls/hr IVPB 0200,0800,1400,2000 [facility]; Protocol Last Admin: 12/01/18 13:58 Dose: 100 mls/hr Morphine Sulfate (Morphine) 2 mg IVP Q4 PRN PRN Reason: Pain, moderate (4-7) Last Admin: 12/01/18 04:14 Dose: 2 mg Morphine Sulfate (Morphine) 1 mg IVP Q4 PRN PRN Reason: Pain, Mild (1-3) Morphine Sulfate (Morphine) 4 mg IVP Q4 PRN PRN Reason: Pain, severe (8-10) Ondansetron HCl (Zofran Inj) 4 mg IVP Q6 PRN PRN Reason: Nausea/Vomiting Pantoprazole Sodium (Protonix Ec Tab) 40 mg PO DAILY [facility] Last Admin: 12/01/18 09:33 Dose: 40 mg - Labs Labs: 12/01/18 05:50 12/01/18 05:50 - Constitutional Appears: Non-toxic, No Acute Distress - Head Exam Head Exam: NORMAL INSPECTION - Eye Exam Eye Exam: Normal appearance - Neck Exam Neck Exam: Full ROM - Respiratory Exam Respiratory Exam: NORMAL BREATHING PATTERN. absent: Respiratory Distress - Cardiovascular Exam Cardiovascular Exam: REGULAR RHYTHM - GI/Abdominal Exam GI & Abdominal Exam: Soft, Tenderness (LLQ, MILD), Normal Bowel Sounds - Extremities Exam Extremities Exam: Normal Inspection - Neurological Exam Neurological Exam: Alert, Awake, Oriented x3 - Psychiatric Exam Psychiatric exam: Normal Affect, Normal Mood - Skin Skin Exam: Dry, Intact, Normal Color, Warm Assessment and Plan - Assessment and Plan (Free Text) Assessment: 53 yo M with PMH of hemorrhoids admitted for acute diverticulitis. Plan: Acute Diverticulitis - IVABX: c/w Zosyn 3.375 g - IVF NS - Pain management: tylenol, morphine PRN - Diet: GI/hepatic - Surgery consulted, recommendations appreciated re: CT (11/30/18) - Focus of air within the urinary bladder with asymmetric wall thickening. Question possibility of fistulous connection to the adjacent sigmoid bowel. Infection/neoplasm considered. DVT/GI prophylaxis - SCDs - Pantoprazole <Rickie Calderón D - Last Filed: 12/01/18 18:15> Objective - Vital Signs/Intake and Output Vital Signs (last 24 hours): Temp Pulse Resp BP Pulse Ox 98.7 F 83 18 110/76 97 12/01/18 16:18 12/01/18 16:18 12/01/18 16:18 12/01/18 16:18 12/01/18 16:18 - Medications Medications: Current Medications Acetaminophen (Tylenol 325mg Tab) 650 mg PO Q4 PRN PRN Reason: Fever >100.4 F Last Admin: 11/30/18 21:10 Dose: 650 mg Sodium Chloride (Sodium Chloride 0.9%) 1,000 mls @ 100 mls/hr IV .Q10H [facility] Last Admin: 11/30/18 21:35 Dose: 100 mls/hr Piperacillin Sod/Tazobactam (Sod 3.375 gm/ Sodium Chloride) 100 mls @ 100 mls/hr IVPB 0200,0800,1400,2000 [facility]; Protocol Last Admin: 12/01/18 13:58 Dose: 100 mls/hr Morphine Sulfate (Morphine) 2 mg IVP Q4 PRN PRN Reason: Pain, moderate (4-7) Last Admin: 12/01/18 04:14 Dose: 2 mg Morphine Sulfate (Morphine) 1 mg IVP Q4 PRN PRN Reason: Pain, Mild (1-3) Morphine Sulfate (Morphine) 4 mg IVP Q4 PRN PRN Reason: Pain, severe (8-10) Ondansetron HCl (Zofran Inj) 4 mg IVP Q6 PRN PRN Reason: Nausea/Vomiting Pantoprazole Sodium (Protonix Ec Tab) 40 mg PO DAILY [facility] Last Admin: 12/01/18 09:33 Dose: 40 mg - Labs Labs: 12/01/18 05:50 12/01/18 05:50 Attending/Attestation - Attestation I have personally seen and examined this patient.: Yes I have fully participated in the care of the patient.: Yes I have reviewed all pertinent clinical information, including history, physical exam and plan: Yes Notes (Text): 12/01/18 18:14 Patient seen and examined with resident. Case discussed and agreed with assessment
--- NOTE | 2018-12-01 15:34 | CP.PCM.DIS ---
<Cande Pisano - Last Filed: 12/01/18 15:41> Provider - Provider Date of Admission: 11/30/18 18:59 Attending physician: Rickie Calderón MD Consults: 12/01/18 08:33 Surgery [General Surgery Consult] Routine Comment: questionable fistula; focus of air within bladder Consulting Provider: Fran Martin Consulting Physician: Fran Martin Reason for Consult: focus of air within the urinary bladder : on CT Time Spent in preparation of Discharge (in minutes): 25 Diagnosis - Discharge Diagnosis (1) Diverticulitis Status: Acute Hospital Course - Lab Results Lab Results: Most Recent Lab Values WBC 12.4 K/uL (4.8-10.8) H 12/01/18 05:50 RBC 4.26 Mil/uL (4.40-5.90) L 12/01/18 05:50 Hgb 12.3 g/dL (12.0-18.0) 12/01/18 05:50 Hct 37.0 % (35.0-51.0) 12/01/18 05:50 MCV 87.0 fl (80.0-94.0) 12/01/18 05:50 MCH 28.8 pg (27.0-31.0) 12/01/18 05:50 MCHC 33.2 g/dL (33.0-37.0) 12/01/18 05:50 RDW 12.9 % (11.5-14.5) 12/01/18 05:50 Plt Count 266 K/uL (130-400) 12/01/18 05:50 MPV 8.4 fl (7.2-11.7) 12/01/18 05:50 Neut % (Auto) 78.3 % (50.0-75.0) H 12/01/18 05:50 Lymph % (Auto) 13.3 % (20.0-40.0) L 12/01/18 05:50 [place] % (Auto) 7.8 % (0.0-10.0) 12/01/18 05:50 Eos % (Auto) 0.3 % (0.0-4.0) 12/01/18 05:50 Baso % (Auto) 0.3 % (0.0-2.0) 12/01/18 05:50 Neut # (Auto) 9.7 K/uL (1.8-7.0) H 12/01/18 05:50 Lymph # (Auto) 1.6 K/uL (1.0-4.3) 12/01/18 05:50 [place] # (Auto) 1.0 K/uL (0.0-0.8) H 12/01/18 05:50 Eos # (Auto) 0.0 K/uL (0.0-0.7) 12/01/18 05:50 Baso # (Auto) 0.0 K/uL (0.0-0.2) 12/01/18 05:50 pO2 21 mm/Hg (30-55) L 11/30/18 15:33 VBG pH 7.34 (7.32-7.43) 11/30/18 15:33 VBG pCO2 52 mmHg (40-60) 11/30/18 15:33 VBG HCO3 24.2 mmol/L 11/30/18 15:33 VBG Total CO2 29.7 mmol/L (22-28) H 11/30/18 15:33 VBG O2 Sat (Calc) 29.3 % (40-65) L 11/30/18 15:33 VBG Base Excess 1.4 mmol/L (0.0-2.0) 11/30/18 15:33 VBG Potassium 4.1 mmol/L (3.6-5.2) 11/30/18 15:33 Sodium 137.0 mmol/L (132-148) 11/30/18 15:33 Chloride 106.0 mmol/L (98-107) 11/30/18 15:33 Glucose 95 mg/dL (75-110) 11/30/18 15:33 Lactate 0.8 mmol/L (0.7-2.1) 11/30/18 15:33 FiO2 21.0 % 11/30/18 15:33 Sodium 135 mmol/l (132-148) 12/01/18 05:50 Potassium 3.8 MMOL/L (3.6-5.0) 12/01/18 05:50 Chloride 105 mmol/L (98-107) 12/01/18 05:50 Carbon Dioxide 24 mmol/L (22-30) 12/01/18 05:50 Anion Gap 10 (10-20) 12/01/18 05:50 BUN 13 mg/dl (9-20) 12/01/18 05:50 Creatinine 1.0 mg/dl (0.8-1.5) 12/01/18 05:50 Est GFR ( Amer) > 60 12/01/18 05:50 Est GFR (Non-Af Amer) > 60 12/01/18 05:50 Random Glucose 84 mg/dL (75-110) 12/01/18 05:50 Calcium 8.6 mg/dL (8.4-10.2) 12/01/18 05:50 Total Bilirubin 0.4 mg/dl (0.2-1.3) 11/30/18 15:20 AST 25 U/L (17-59) 11/30/18 15:20 ALT 22 U/L (21-72) 11/30/18 15:20 Alkaline Phosphatase 64 U/L (38-126) 11/30/18 15:20 Total Protein 7.6 G/DL (6.3-8.2) 11/30/18 15:20 Albumin 4.0 g/dL (3.5-5.0) 11/30/18 15:20 Globulin 3.6 gm/dL (2.2-3.9) 11/30/18 15:20 Albumin/Globulin Ratio 1.1 (1.0-2.1) 11/30/18 15:20 Lipase 86 U/L (23-300) 11/30/18 15:20 Venous Blood Potassium 4.1 mmol/L (3.6-5.2) 11/30/18 15:33 Urine Color Yellow (YELLOW) 11/30/18 15:24 Urine Clarity Clear (Clear) 11/30/18 15:24 Urine pH 6.0 (5.0-8.0) 11/30/18 15:24 Ur Specific [place] 1.028 (1.003-1.030) 11/30/18 15:24 Urine Protein Negative mg/dL (NEGATIVE) 11/30/18 15:24 Urine Glucose (UA) Neg mg/dL (NEGATIVE) 11/30/18 15:24 Urine Ketones Negative mg/dL (NEGATIVE) 11/30/18 15:24 Urine Blood Negative (NEGATIVE) 11/30/18 15:24 Urine Nitrate Negative (NEGATIVE) 11/30/18 15:24 Urine Bilirubin Negative (NEGATIVE) 11/30/18 15:24 Urine Urobilinogen 0.2-1.0 mg/dL (0.2-1.0) 11/30/18 15:24 Ur Leukocyte Esterase Neg [place]/uL (Negative) 11/30/18 15:24 Urine RBC (Auto) 5 /hpf (0-3) H 11/30/18 15:24 Urine Microscopic WBC < 1 /hpf (0-5) 11/30/18 15:24 Ur Squamous Epith Cells < 1 /hpf (0-5) 11/30/18 15:24 Influenza Typ A,B (EIA) Negative for flu a/b (NEGATIVE) 11/30/18 16:00 - Hospital Course Hospital Course: 53 yo M with PMH of hemorrhoids admitted for acute diverticulitis. Patient was treated with IVABX: Zosyn 3.375 g and Cipro, IVF NS. Diet initally NPO and advanced to GI/hepatic, tolerated well. Pain managed with Tylenol and morphine PRN . Surgery consulted, recommendations appreciated re: CT (11/30/18) - Focus of air within the urinary bladder with asymmetric wall thickening. Question possibility of fistulous connection to the adjacent sigmoid bowel. I nfection/neoplasm considered. Surgery does not feel any surgical intervention is needed at this time. Patient medically cleared to be treated outpatient. He reports the abdominal pain has subsided to 2-3/10, down from 10/10 on admission. Denies dysuria, hematuria, blood in stool, diarrhea, constipation, chest pain, fever, chills and shortness of breath. Discharge Exam - Head Exam Head Exam: NORMAL INSPECTION - Eye Exam Eye Exam: Normal appearance - ENT Exam ENT Exam: Mucous Membranes Moist - Respiratory Exam Respiratory Exam: NORMAL BREATHING PATTERN. absent: Respiratory Distress - Cardiovascular Exam Cardiovascular Exam: REGULAR RHYTHM - GI/Abdominal Exam GI & Abdominal Exam: Soft, Tenderness (mildly tender LLQ). absent: Distended, Guarding - Neurological Exam Neurological exam: Alert, Normal Gait, Oriented x3 - Psychiatric Exam Psychiatric exam: Normal Affect, Normal Mood - Skin Skin Exam: Dry, Intact, Normal Color, Warm Discharge Plan - Discharge Medications Prescriptions: Ciprofloxacin [Cipro] 500 mg PO BID #20 tab Lactobacillus Acidophilus [Bacid Acidophilus] 1 cap PO BID #20 cap Metronidazole [Flagyl] 500 mg PO TID #30 tablet - Follow Up Plan Condition: FAIR Disposition: HOME/ ROUTINE Instructions: Low Fiber Diet, Diverticulitis (DC) Additional Instructions: hacer blanca con george primario dentro de 1 semana Referrals: [facility] [place] [Outside] Fran Martin MD [Staff Provider] - <Rickie Calderón - Last Filed: 12/01/18 18:14> Provider - Provider Date of Admission: 11/30/18 18:59 Attending physician: Rickie Calderón MD Consults: 12/01/18 08:33 Surgery [General Surgery Consult] Routine Comment: questionable fistula; focus of air within bladder Consulting Provider: Fran Martin Consulting Physician: Fran Martin Reason for Consult: focus of air within the urinary bladder : on CT Hospital Course - Lab Results Lab Results: Micro Results 11/30/18 15:39 Blood Blood Culture - Preliminary NO GROWTH AFTER 24 HOURS 11/30/18 15:39 Blood Blood Culture - Preliminary NO GROWTH AFTER 24 HOURS Most Recent Lab Values WBC 12.4 K/uL (4.8-10.8) H 12/01/18 05:50 RBC 4.26 Mil/uL (4.40-5.90) L 12/01/18 05:50 Hgb 12.3 g/dL (12.0-18.0) 12/01/18 05:50 Hct 37.0 % (35.0-51.0) 12/01/18 05:50 MCV 87.0 fl (80.0-94.0) 12/01/18 05:50 MCH 28.8 pg (27.0-31.0) 12/01/18 05:50 MCHC 33.2 g/dL (33.0-37.0) 12/01/18 05:50 RDW 12.9 % (11.5-14.5) 12/01/18 05:50 Plt Count 266 K/uL (130-400) 12/01/18 05:50 MPV 8.4 fl (7.2-11.7) 12/01/18 05:50 Neut % (Auto) 78.3 % (50.0-75.0) H 12/01/18 05:50 Lymph % (Auto) 13.3 % (20.0-40.0) L 12/01/18 05:50 [place] % (Auto) 7.8 % (0.0-10.0) 12/01/18 05:50 Eos % (Auto) 0.3 % (0.0-4.0) 12/01/18 05:50 Baso % (Auto) 0.3 % (0.0-2.0) 12/01/18 05:50 Neut # (Auto) 9.7 K/uL (1.8-7.0) H 12/01/18 05:50 Lymph # (Auto) 1.6 K/uL (1.0-4.3) 12/01/18 05:50 [place] # (Auto) 1.0 K/uL (0.0-0.8) H 12/01/18 05:50 Eos # (Auto) 0.0 K/uL (0.0-0.7) 12/01/18 05:50 Baso # (Auto) 0.0 K/uL (0.0-0.2) 12/01/18 05:50 pO2 21 mm/Hg (30-55) L 11/30/18 15:33 VBG pH 7.34 (7.32-7.43) 11/30/18 15:33 VBG pCO2 52 mmHg (40-60) 11/30/18 15:33 VBG HCO3 24.2 mmol/L 11/30/18 15:33 VBG Total CO2 29.7 mmol/L (22-28) H 11/30/18 15:33 VBG O2 Sat (Calc) 29.3 % (40-65) L 11/30/18 15:33 VBG Base Excess 1.4 mmol/L (0.0-2.0) 11/30/18 15:33 VBG Potassium 4.1 mmol/L (3.6-5.2) 11/30/18 15:33 Sodium 137.0 mmol/L (132-148) 11/30/18 15:33 Chloride 106.0 mmol/L (98-107) 11/30/18 15:33 Glucose 95 mg/dL (75-110) 11/30/18 15:33 Lactate 0.8 mmol/L (0.7-2.1) 11/30/18 15:33 FiO2 21.0 % 11/30/18 15:33 Sodium 135 mmol/l (132-148) 12/01/18 05:50 Potassium 3.8 MMOL/L (3.6-5.0) 12/01/18 05:50 Chloride 105 mmol/L (98-107) 12/01/18 05:50 Carbon Dioxide 24 mmol/L (22-30) 12/01/18 05:50 Anion Gap 10 (10-20) 12/01/18 05:50 BUN 13 mg/dl (9-20) 12/01/18 05:50 Creatinine 1.0 mg/dl (0.8-1.5) 12/01/18 05:50 Est GFR ( Amer) > 60 12/01/18 05:50 Est GFR (Non-Af Amer) > 60 12/01/18 05:50 Random Glucose 84 mg/dL (75-110) 12/01/18 05:50 Calcium 8.6 mg/dL (8.4-10.2) 12/01/18 05:50 Total Bilirubin 0.4 mg/dl (0.2-1.3) 11/30/18 15:20 AST 25 U/L (17-59) 11/30/18 15:20 ALT 22 U/L (21-72) 11/30/18 15:20 Alkaline Phosphatase 64 U/L (38-126) 11/30/18 15:20 Total Protein 7.6 G/DL (6.3-8.2) 11/30/18 15:20 Albumin 4.0 g/dL (3.5-5.0) 11/30/18 15:20 Globulin 3.6 gm/dL (2.2-3.9) 11/30/18 15:20 Albumin/Globulin Ratio 1.1 (1.0-2.1) 11/30/18 15:20 Lipase 86 U/L (23-300) 11/30/18 15:20 Venous Blood Potassium 4.1 mmol/L (3.6-5.2) 11/30/18 15:33 Urine Color Yellow (YELLOW) 11/30/18 15:24 Urine Clarity Clear (Clear) 11/30/18 15:24 Urine pH 6.0 (5.0-8.0) 11/30/18 15:24 Ur Specific [place] 1.028 (1.003-1.030) 11/30/18 15:24 Urine Protein Negative mg/dL (NEGATIVE) 11/30/18 15:24 Urine Glucose (UA) Neg mg/dL (NEGATIVE) 11/30/18 15:24 Urine Ketones Negative mg/dL (NEGATIVE) 11/30/18 15:24 Urine Blood Negative (NEGATIVE) 11/30/18 15:24 Urine Nitrate Negative (NEGATIVE) 11/30/18 15:24 Urine Bilirubin Negative (NEGATIVE) 11/30/18 15:24 Urine Urobilinogen 0.2-1.0 mg/dL (0.2-1.0) 11/30/18 15:24 Ur Leukocyte Esterase Neg [place]/uL (Negative) 11/30/18 15:24 Urine RBC (Auto) 5 /hpf (0-3) H 11/30/18 15:24 Urine Microscopic WBC < 1 /hpf (0-5) 11/30/18 15:24 Ur Squamous Epith Cells < 1 /hpf (0-5) 11/30/18 15:24 Influenza Typ A,B (EIA) Negative for flu a/b (NEGATIVE) 11/30/18 16:00 Attending/Attestation - Attestation I have personally seen and examined this patient.: Yes I have fully participated in the care of the patient.: Yes I have reviewed all pertinent clinical information, including history, physical exam and plan: Yes Notes (Text): 12/01/18 18:13 Patient seeen and examined with resident. Case discussed and agreed with asszenaida elizondoent.
[2018-12-01 16:19] VITALS: BP 110/76; PULSE 83; RESP 18; TEMP 98.7
== END 2018-12-01 19:30 | disposition home or self-care (01) | DRG 244 ==
LOC: H.ER 14:09 → H.ERHOLD 18:59 → H.MEDSURG1 22:05
DX: K57.92 Diverticulitis of intestine, part unspecified, without perforation or abscess without bleeding (principal); K64.9 Unspecified hemorrhoids; E78.5 Hyperlipidemia, unspecified; E78.00 Pure hypercholesterolemia, unspecified; N40.0 Benign prostatic hyperplasia without lower urinary tract symptoms; F17.210 Nicotine dependence, cigarettes, uncomplicated

== ENCOUNTER 2018-12-27 17:37 | Inpatient (IN) | payer MEDICAID, SELFPAY ==
[2018-12-27] MEDS ORDERED: Sodium Chloride 0.9% 1,000 ML IV STA (19:38)
[2018-12-27] MEDS ORDERED: Iohexol 240 (50 ml) ONE ×2 (19:53→21:56)
--- NOTE | 2018-12-27 20:05 | ED PDOC ---
HPI: Abdomen Time Seen by Provider: 12/27/18 19:15 Chief Complaint (Nursing): Abdominal Pain Chief Complaint (Provider): Abdominal Pain History Per: Patient History/Exam Limitations: no limitations Onset/Duration Of Symptoms: Days (x 2 weeks ) Location Of Pain/Discomfort: LLQ Quality Of Discomfort: "Pain" Associated Symptoms: Nausea. denies: Fever, Vomiting Additional Complaint(s): 53 year old male with a history of hemorrhoids and diverticulitis presents to the ED with worsening LLQ abdominal pain for the last week and a half associated with nausea. Patient was admitted, treated for diverticulitis and discharged on December 01. Pain is now worse than when he was initially diagnosed. Additionally, he states that he had bright red bloody stools 3 days ago. Patient states he is only eating soft foods to not provoke the diverticulitis and has not had a normal bowel movement today. He reports trying to schedule an appointment with the [facility] clinic three times and was finally given an appointment on January 24. Denies vomiting and fever. PMD: none provided Past Medical History Reviewed: Historical Data, Nursing Documentation, Vital Signs Vital Signs: Last Vital Signs Temp 98.3 F 12/27/18 18:55 Pulse 78 12/27/18 18:55 Resp 16 12/27/18 18:55 BP 95/69 L 12/27/18 18:55 Pulse Ox 98 12/27/18 18:55 - Medical History PMH: Benign Prostatic Hyperplasia, Hypercholesterolemia, Hyperlipidemia Denies: HIV, HTN, Chronic Kidney Disease - Surgical History Surgical History: No Surg Hx - Family History Family History: States: Unknown Family Hx - Immunization History Hx Tetanus Toxoid Vaccination: Yes Hx Influenza Vaccination: No Hx Pneumococcal Vaccination: No - Home Medications Home Medications: Ambulatory Orders Medication Instructions Recorded Ciprofloxacin [Cipro] 500 mg PO BID #20 tab 12/01/18 Lactobacillus Acidophilus [Bacid 1 cap PO BID #20 cap 12/01/18 Acidophilus] Metronidazole [Flagyl] 500 mg PO TID #30 tablet 12/01/18 - Allergies Allergies/Adverse Reactions: Allergies Allergy/AdvReac Type Severity Reaction Status Date / Time Peaches Allergy ITCHING Uncoded 12/27/18 18:55 Review of Systems ROS Statement: Except As Marked, All Systems Reviewed And Found Negative Constitutional: Negative for: Fever, Chills Gastrointestinal: Positive for: Nausea, Abdominal Pain (worsening LLQ), Hematochezia (now resolved). Negative for: Vomiting, Diarrhea Physical Exam - Reviewed Nursing Documentation Reviewed: Yes Vital Signs Reviewed: Yes - Physical Exam Appears: Positive for: Uncomfortable Head Exam: Positive for: ATRAUMATIC, NORMAL INSPECTION, NORMOCEPHALIC Skin: Positive for: Normal Color, Warm, Dry. Negative for: Rash Eye Exam: Positive for: EOMI, Normal appearance, PERRL Neck: Positive for: Normal, Painless ROM, Supple Cardiovascular/Chest: Positive for: Regular Rate, Rhythm. Negative for: Murmur Respiratory: Positive for: Normal Breath Sounds. Negative for: Wheezing, Respiratory Distress Gastrointestinal/Abdominal: Positive for: Tenderness (LLQ tenderness to minimal palpation as well as suprapubic ), Guarding (voluntary). Negative for: Mass Back: Positive for: Normal Inspection. Negative for: L CVA Tenderness, R CVA Tenderness Extremity: Positive for: Normal ROM (x 4). Negative for: Deformity Neurologic/Psych: Positive for: Alert, Oriented (x 3). Negative for: Motor/Sensory Deficits - Laboratory Results Result Diagrams: 12/27/18 20:20 12/27/18 20:20 - ECG O2 Sat by Pulse Oximetry: 98 (RA) Pulse Ox Interpretation: Normal Medical Decision Making Medical Decision Makin:37 A&P: 53 year old male with a history of hemorrhoids and diverticulitis presenting with worsening LLQ pain Concern for another flare of diverticulitis with possible abscess formation, fistualization or other complications. Orders: --Abd Pelvis with PO & IV contrast --VBG --Blood type and screen --CMP --CBC --Lipase --Blood cx --NS IV --Toradol 30 mg IVP --UA 0000 EXAM: CT Abdomen and Pelvis with IV contrast CLINICAL HISTORY: Hx of diverticulitis, worsening llq pain TECHNIQUE: Axial computed tomography images of the abdomen and pelvis with oral and intravenous contrast. CONTRAST: With intravenous contrast. COMPARISON: None provided. FINDINGS: LUNG BASES: The lung bases demonstrate dependent atelectasis. No pleural effusions are seen. LIVER: There is mild hepatomegaly. The liver measured approximately 17.7 cm in the midclavicular line. No hepatic mass. GALLBLADDER AND BILE DUCTS: The gallbladder appears within normal limits. No radioopaque gallstones are seen. No biliary ductal dilatation is evident. PANCREAS: Unremarkable. SPLEEN: Unremarkable. ADRENAL GLANDS: Unremarkable. KIDNEYS, URETERS, AND BLADDER: The kidneys appear within normal limits. There is no hydronephrosis or hydroureter. No urinary calculi are seen. The urinary bladder is normal in size and configuration. STOMACH AND BOWEL: Unremarkable appearance of the stomach. There is mild mucosal wall thickening of the small intestine thought indicative of some enteritis. Inflammatory or infectious etiologies are thought most likely. No evidence of bowel obstruction. Diffuse diverticulosis coli is seen in the descending and sigmoid colon. Severe inflammatory stranding present adjacent to the distal descending and sigmoid colon consistent with acute diverticulitis. There is an associated 3 x 2 cm abscess within the wall of the distal descending colon. 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 No free air is noted. APPENDIX: No evidence of acute appendicitis on CT examination. PERITONEUM: No free fluid. No free air. LYMPH NODES: No lymphadenopathy is evident. REPRODUCTIVE: Unremarkable as visualized. VASCULATURE: No evidence of abdominal aortic aneurysm. Minor atherosclerotic vascular plaquing is present. BONES: No aggressive appearing osseous lesion. No acute osseous pathology evident. IMPRESSION: 1. Diverticulosis coli of the left hemicolon with associated acute diverticu litis; most pronounced in the distal descending and proximal sigmoid region. 3 x 2 cm abscess within the wall of the distal descending colon. 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 2. Diffuse enteritis. Electronically signed on Dec 27, 2018 11:07:13 PM EST by: Bunny Condon M.D., MBA Certified By [employer] [facility] Fellowship Trained MRI and CT Specialist Results disucssed with patient. Spoke with surgical pathologist who will consult. Dr. Vanegas aware. Scribe Attestation: Documented by Kasie Crockett acting as a scribe for Mitch Lao MD Provider Scribe Attestation: All medical record entries made by the Scribe were at my direction and personally dictated by me. I have reviewed the chart and agree that the record accurately reflects my personal performance of the history, physical exam, medical decision making, and the department course for this patient. I have also personally directed, reviewed, and agree with the discharge instructions and disposition. Disposition - Clinical Impression Clinical Impression: Diverticulitis, Abscess, Fistula - Disposition Disposition Time: 00:00 Condition: FAIR
[2018-12-27 20:30] LABS: BASO # 0.1 K/uL (0.0-0.2); BASO % 0.8 % (0.0-2.0); EOS # 0.1 K/uL (0.0-0.7); EOS % 1.2 % (0.0-4.0); HEMOGLOBIN 13.3 g/dL (12.0-18.0); LYMPH % 20.7 % (20.0-40.0); MEAN CELL VOLUME 86.3 fl (80.0-94.0); MEAN CORPUSCULAR HEMOGLOBIN 28.6 pg (27.0-31.0); MEAN CORPUSCULAR HGB CONC 33.2 g/dL (33.0-37.0); MEAN PLATELET VOLUME 7.6 fl (7.2-11.7); MONO # 0.9 K/uL (0.0-0.8); NEUT # 6.5 K/uL (1.8-7.0); NEUT % 68.3 % (50.0-75.0); RBC 4.66 Mil/uL (4.40-5.90); RED CELL DISTRIBUTION WIDTH 13.2 % (11.5-14.5); WHITE BLOOD COUNT 9.6 K/uL (4.8-10.8)
[2018-12-27 20:45] LABS: VENOUS BLOOD GAS BASE EXCESS -14.7 mmol/L (0.0-2.0); VENOUS BLOOD GAS PCO2 17 mmHg (40-60); VENOUS BLOOD GAS PO2 24 mm/Hg (30-55); VENOUS BLOOD PH 7.32 (7.32-7.43)
[2018-12-27 20:53] LABS: ALBUMIN 3.8 g/dL (3.5-5.0); ALT/SGPT 31 U/L (21-72); AST/SGOT 28 U/L (17-59); BLOOD UREA NITROGEN 16 mg/dl (9-20); CALCIUM 9.1 mg/dL (8.4-10.2); GFR NON-AFRICAN AMERICAN > 60; LIPASE 78 U/L (23-300)
[2018-12-27 21:04] LABS: VENOUS BLOOD GAS BASE EXCESS -2.3 mmol/L (0.0-2.0); VENOUS BLOOD GAS PCO2 38 mmHg (40-60); VENOUS BLOOD GAS PO2 62 mm/Hg (30-55); VENOUS BLOOD PH 7.38 (7.32-7.43)
[2018-12-27] MEDS ORDERED: Iohexol 300 100 ML IJ ONE (21:22)
[2018-12-27] MEDS ORDERED: Sodium Chloride 0.9% 50 ML IV ONE (21:22)
[2018-12-28] MEDS ORDERED: Sodium Chloride 0.9% 1,000 ML IV STA (00:02)
[2018-12-28] MEDS ORDERED: Piperacillin/Tazobact 3.375 GM in Sodium Chloride 0.9% 100 ML IVPB STA (00:02)
[2018-12-28] MEDS ORDERED: Piperacillin/Tazobact 3.375 gm Inj IVPB ONE (00:07)
--- NOTE | 2018-12-28 00:45 | CP.PCM.CON ---
<Aamir Carlton - Last Filed: 12/28/18 00:47> History of Present Illness - History of Present Illness History of Present Illness: 53M with PMHx of hemorrhoids, diverticulitis, presented to [facility] ED with complaints of abdominal pain. Patient was recently admitted on 11/30/18 for diverticulitis. At that time patient was discharged home with PO prescription of ciprofloxacin and flagyl. Patient states he finished the prescribed course but states his abdominal pain did not improve and worsened once antibiotic course finished. Patient states that through the following weeks he was taking Advil wh ich made LLQ pain tolerable. However, on Tuesday he reported having bright red blood per rectum. States he had another bout of hematochezia on Tuesday which prompted him to come to ED. Patient also reports subjective chills, nausea, as well as pneumaturia and dysuria. Denies headache/dizziness, chest pain, shortness of breath. PMH: as stated above PSurgHx: reports having colonoscopy ~3 years ago; states had 4 polyps removed and was told to follow up in 5 years Allergies: peaches Fam Hx: denies fam hx of colon CA Review of Systems - Review of Systems Review of Systems: 10 pt ROS negative except as stated in HPI Past Patient History - Past Medical History & Family History Past Medical History?: Yes - Past Social History Smoking Status: Light Smoker < 10 Cigarettes Daily - CARDIAC Hx Hypercholesterolemia: Yes Hx Hypertension: No - PULMONARY Hx Respiratory Disorders: No - NEUROLOGICAL Hx Neurological Disorder: No - HEENT Hx HEENT Problems: Yes Other/Comment: reports he needs eyeglasses but has not had his eyes checked - RENAL Hx Chronic Kidney Disease: No - ENDOCRINE/METABOLIC Hx Endocrine Disorders: No Hx Diabetes Mellitus Type 2: No - HEMATOLOGICAL/ONCOLOGICAL Hx Human Immunodeficiency Virus (HIV): No - INTEGUMENTARY Hx Dermatological Problems: Yes Hx Cellulitis: Yes (reports last admission for cellulitis to R buttocks) - MUSCULOSKELETAL/RHEUMATOLOGICAL Hx Musculoskeletal Disorders: No Hx Falls: No - GASTROINTESTINAL Hx Gastrointestinal Disorders: Yes Hx Diverticulitis: Yes - GENITOURINARY/GYNECOLOGICAL Hx Genitourinary Disorders: Yes Hx Prostate Problems: Yes - PSYCHIATRIC Hx Psychophysiologic Disorder: No Hx Substance Use: No - SURGICAL HISTORY Hx Surgeries: Yes Other/Comment: I & D of abscess to R buttocks by bedside Jun 2018 - ANESTHESIA Hx Anesthesia: Yes Hx Anesthesia Reactions: No Hx Malignant Hyperthermia: No Meds Allergies/Adverse Reactions: Allergies Allergy/AdvReac Type Severity Reaction Status Date / Time Peaches Allergy ITCHING Uncoded 12/27/18 18:55 - Medications Medications: Current Medications Sodium Chloride (Sodium Chloride 0.9%) 1,000 mls @ 150 mls/hr IV .Q6H40M STA Stop: 12/28/18 06:41 Piperacillin Sod/Tazobactam (Sod 3.375 gm/ Sodium Chloride) 100 mls @ 100 mls/hr IVPB STAT STA; Protocol Stop: 12/28/18 01:01 Physical Exam - Constitutional Appears: No Acute Distress - Head Exam Head Exam: NORMOCEPHALIC - Eye Exam Eye Exam: EOMI, Normal appearance - ENT Exam ENT Exam: Mucous Membranes Dry - Respiratory Exam Respiratory Exam: NORMAL BREATHING PATTERN - Cardiovascular Exam Cardiovascular Exam: +S1, +S2 - GI/Abdominal Exam GI & Abdominal Exam: Guarding, Rebound, Soft, Tenderness. absent: Distended, Firm, Rigid Additional comments: Exquisite left lower quadrant tenderness with focal guarding +rebound tenderness No generalized peritonitis noted - Neurological Exam Neurological exam: Alert, Oriented x3 - Psychiatric Exam Psychiatric exam: Normal Mood - Skin Skin Exam: Dry, Intact, Warm Results - Vital Signs Recent Vital Signs: Last Vital Signs Temp 98.3 F 12/27/18 18:55 Pulse 78 12/27/18 18:55 Resp 16 12/27/18 18:55 BP 95/69 L 12/27/18 18:55 Pulse Ox 98 12/27/18 20:13 - Labs Result Diagrams: 12/27/18 20:20 12/27/18 20:20 Labs: Laboratory Results - last 24 hr 12/27/18 12/27/18 12/27/18 20:20 20:20 20:20 WBC 9.6 RBC 4.66 Hgb 13.3 Hct 40.2 MCV 86.3 MCH 28.6 MCHC 33.2 RDW 13.2 Plt Count 325 MPV 7.6 Neut % (Auto) 68.3 Lymph % (Auto) 20.7 Park % (Auto) 9.0 Eos % (Auto) 1.2 Baso % (Auto) 0.8 Neut # (Auto) 6.5 Lymph # (Auto) 2.0 Park # (Auto) 0.9 H Eos # (Auto) 0.1 Baso # (Auto) 0.1 pO2 VBG pH VBG pCO2 VBG HCO3 VBG Total CO2 VBG O2 Sat (Calc) VBG Base Excess VBG Potassium Glucose Lactate FiO2 Crit Value Called To Crit Value Called By Crit Value Read Back Blood Gas Notified Time Sodium 139 Potassium 4.2 Chloride 102 Carbon Dioxide 24 Anion Gap 17 BUN 16 Creatinine 0.8 Est GFR ( Amer) > 60 Est GFR (Non-Af Amer) > 60 Random Glucose 105 Calcium 9.1 Total Bilirubin 0.3 AST 28 ALT 31 Alkaline Phosphatase 69 Total Protein 7.4 Albumin 3.8 Globulin 3.7 Albumin/Globulin Ratio 1.0 Lipase 78 Venous Blood Potassium Blood Type O POSITIVE Blood Type Confirm Antibody Screen Negative BBK History Checked No verified bt 12/27/18 12/27/18 12/27/18 20:24 20:55 20:55 WBC RBC Hgb Hct MCV MCH MCHC RDW Plt Count MPV Neut % (Auto) Lymph % (Auto) Park % (Auto) Eos % (Auto) Baso % (Auto) Neut # (Auto) Lymph # (Auto) Park # (Auto) Eos # (Auto) Baso # (Auto) pO2 24 L 62 H VBG pH 7.32 7.38 VBG pCO2 17 L* 38 L VBG HCO3 11.8 23.0 VBG Total CO2 9.3 L 23.7 VBG O2 Sat (Calc) 48.9 93.8 H VBG Base Excess -14.7 L -2.3 L VBG Potassium 0.9 L* 3.6 Glucose 31 L* D 87 Lactate < 0.3 L 0.5 L FiO2 21.0 21.0 Crit Value Called To gilbert Lao md Crit Value Called By Silverio anglin Crit Value Read Back Y Blood Gas Notified Time 2043 Sodium 147.0 136.0 Potassium Chloride 139.0 H 112.0 H Carbon Dioxide Anion Gap BUN Creatinine Est GFR ( Amer) Est GFR (Non-Af Amer) Random Glucose Calcium Total Bilirubin AST ALT Alkaline Phosphatase Total Protein Albumin Globulin Albumin/Globulin Ratio Lipase Venous Blood Potassium 0.9 L* 3.6 Blood Type Blood Type Confirm O POSITIVE Antibody Screen BBK History Checked Assessment & Plan - Assessment and Plan (Free Text) Assessment: 53M with acute diverticulitis with 2x3cm intraabdominal abscess and evidence of colovesicular fistula Plan: NPO IVF ABx Analgesics, Anti-emetics prn Serial abdominal exams Will need operative intervention, likely Rhiannon's procedure Medical management per medicine team D/w Dr. Johnnie Mojica PGY3 <Lonnie Blair - Last Filed: 12/28/18 11:24> History of Present Illness - History of Present Illness History of Present Illness: Patient was seen and examined at the bedside. Agree with resident's note above. Meds - Medications Medications: Current Medications Acetaminophen (Tylenol 325mg Tab) 650 mg PO Q6 PRN PRN Reason: Fever >100.4 F Lactated Ringer's (Lactated Ringer's 500ml) 500 mls @ 125 mls/hr IV .Q4H SALMA Last Admin: 12/28/18 09:55 Dose: Not Given Piperacillin Sod/Tazobactam (Sod 3.375 gm/ Sodium Chloride) 100 mls @ 100 mls/hr IVPB Q6 SALMA; Protocol Last Admin: 12/28/18 09:54 Dose: 100 mls/hr Metronidazole (Flagyl 500mg/100ml Ns) 100 mls @ 100 mls/hr IVPB Q8H SALMA; Protoc ol Last Admin: 12/28/18 09:55 Dose: 100 mls/hr Morphine Sulfate (Morphine) 1 mg IVP Q4 PRN PRN Reason: Pain, Mild (1-3) Morphine Sulfate (Morphine) 2 mg IVP Q4 PRN PRN Reason: Pain, moderate (4-7) Last Admin: 12/28/18 09:53 Dose: 2 mg Morphine Sulfate (Morphine) 4 mg IVP Q6 PRN PRN Reason: Pain, severe (8-10) Ondansetron HCl (Zofran Inj) 4 mg IVP Q6 PRN PRN Reason: Nausea/Vomiting Physical Exam - GI/Abdominal Exam Additional comments: soft, LLQ tenderness, ND, BS+, no rebound, no guarding Results - Vital Signs Recent Vital Signs: Last Vital Signs Temp 97.9 F 12/28/18 08:39 Pulse 70 12/28/18 08:39 Resp 19 12/28/18 08:39 BP 104/67 12/28/18 08:39 Pulse Ox 97 12/28/18 08:39 - Labs Result Diagrams: 12/28/18 06:00 12/28/18 06:00 Labs: Laboratory Results - last 24 hr 12/27/18 12/27/18 12/27/18 20:20 20:20 20:20 WBC 9.6 RBC 4.66 Hgb 13.3 Hct 40.2 MCV 86.3 MCH 28.6 MCHC 33.2 RDW 13.2 Plt Count 325 MPV 7.6 Neut % (Auto) 68.3 Lymph % (Auto) 20.7 Park % (Auto) 9.0 Eos % (Auto) 1.2 Baso % (Auto) 0.8 Neut # (Auto) 6.5 Lymph # (Auto) 2.0 Park # (Auto) 0.9 H Eos # (Auto) 0.1 Baso # (Auto) 0.1 PT INR APTT pO2 VBG pH VBG pCO2 VBG HCO3 VBG Total CO2 VBG O2 Sat (Calc) VBG Base Excess VBG Potassium Glucose Lactate FiO2 Crit Value Called To Crit Value Called By Crit Value Read Back Blood Gas Notified Time Sodium 139 Potassium 4.2 Chloride 102 Carbon Dioxide 24 Anion Gap 17 BUN 16 Creatinine 0.8 Est GFR ( Amer) > 60 Est GFR (Non-Af Amer) > 60 Random Glucose 105 Calcium 9.1 Phosphorus Magnesium Total Bilirubin 0.3 AST 28 ALT 31 Alkaline Phosphatase 69 Total Protein 7.4 Albumin 3.8 Globulin 3.7 Albumin/Globulin Ratio 1.0 Lipase 78 Venous Blood Potassium Urine Color Urine Clarity Urine pH Ur Specific [place] Urine Protein Urine Glucose (UA) Urine Ketones Urine Blood Urine Nitrate Urine Bilirubin Urine Urobilinogen Ur Leukocyte Esterase Urine RBC (Auto) Urine Microscopic WBC Blood Type O POSITIVE Blood Type Confirm Antibody Screen Negative BBK History Checked No verified bt 12/27/18 12/27/18 12/27/18 20:24 20:55 20:55 WBC RBC Hgb Hct MCV MCH MCHC RDW Plt Count MPV Neut % (Auto) Lymph % (Auto) Park % (Auto) Eos % (Auto) Baso % (Auto) Neut # (Auto) Lymph # (Auto) Park # (Auto) Eos # (Auto) Baso # (Auto) PT INR APTT pO2 24 L 62 H VBG pH 7.32 7.38 VBG pCO2 17 L* 38 L VBG HCO3 11.8 23.0 VBG Total CO2 9.3 L 23.7 VBG O2 Sat (Calc) 48.9 93.8 H VBG Base Excess -14.7 L -2.3 L VBG Potassium 0.9 L* 3.6 Glucose 31 L* D 87 Lactate < 0.3 L 0.5 L FiO2 21.0 21.0 Crit Value Called To gilbert Lao md Crit Value Called By Silverio anglin Crit Value Read Back Y Blood Gas Notified Time 2043 Sodium 147.0 136.0 Potassium Chloride 139.0 H 112.0 H Carbon Dioxide Anion Gap BUN Creatinine Est GFR ( Amer) Est GFR (Non-Af Amer) Random Glucose Calcium Phosphorus Magnesium Total Bilirubin AST ALT Alkaline Phosphatase Total Protein Albumin Globulin Albumin/Globulin Ratio Lipase Venous Blood Potassium 0.9 L* 3.6 Urine Color Urine Clarity Urine pH Ur Specific [place] Urine Protein Urine Glucose (UA) Urine Ketones Urine Blood Urine Nitrate Urine Bilirubin Urine Urobilinogen Ur Leukocyte Esterase Urine RBC (Auto) Urine Microscopic WBC Blood Type Blood Type Confirm O POSITIVE Antibody Screen BBK History Checked 12/28/18 12/28/18 12/28/18 00:53 06:00 06:00 WBC 6.4 RBC 4.24 L Hgb 11.9 L Hct 36.8 MCV 86.7 MCH 28.1 MCHC 32.4 L RDW 13.3 Plt Count 311 MPV 7.6 Neut % (Auto) 56.2 Lymph % (Auto) 31.5 Park % (Auto) 9.4 Eos % (Auto) 2.3 Baso % (Auto) 0.6 Neut # (Auto) 3.6 Lymph # (Auto) 2.0 Park # (Auto) 0.6 Eos # (Auto) 0.1 Baso # (Auto) 0.0 PT INR APTT pO2 VBG pH VBG pCO2 VBG HCO3 VBG Total CO2 VBG O2 Sat (Calc) VBG Base Excess VBG Potassium Glucose Lactate FiO2 Crit Value Called To Crit Value Called By Crit Value Read Back Blood Gas Notified Time Sodium 140 Potassium 4.1 Chloride 105 Carbon Dioxide 25 Anion Gap 14 BUN 16 Creatinine 0.9 Est GFR ( Amer) > 60 Est GFR (Non-Af Amer) > 60 Random Glucose 82 Calcium 8.6 Phosphorus 3.7 Magnesium 2.4 H Total Bilirubin 0.5 AST 32 ALT 19 L D Alkaline Phosphatase 52 Total Protein 6.4 Albumin 3.1 L Globulin 3.3 Albumin/Globulin Ratio 0.9 L Lipase Venous Blood Potassium Urine Color Yellow Urine Clarity Clear Urine pH 6.0 Ur Specific [place] > 1.060 H Urine Protein Negative Urine Glucose (UA) Neg Urine Ketones Negative Urine Blood Negative Urine Nitrate Negative Urine Bilirubin Negative Urine Urobilinogen 0.2-1.0 Ur Leukocyte Esterase Neg Urine RBC (Auto) 1 Urine Microscopic WBC 1 Blood Type Blood Type Confirm Antibody Screen BBK History Checked 12/28/18 06:00 WBC RBC Hgb Hct MCV MCH MCHC RDW Plt Count MPV Neut % (Auto) Lymph % (Auto) Park % (Auto) Eos % (Auto) Baso % (Auto) Neut # (Auto) Lymph # (Auto) Park # (Auto) Eos # (Auto) Baso # (Auto) PT 12.1 INR 1.1 APTT 30.9 pO2 VBG pH VBG pCO2 VBG HCO3 VBG Total CO2 VBG O2 Sat (Calc) VBG Base Excess VBG Potassium Glucose Lactate FiO2 Crit Value Called To Crit Value Called By Crit Value Read Back Blood Gas Notified Time Sodium Potassium Chloride Carbon Dioxide Anion Gap BUN Creatinine Est GFR ( Amer) Est GFR (Non-Af Amer) Random Glucose Calcium Phosphorus Magnesium Total Bilirubin AST ALT Alkaline Phosphatase Total Protein Albumin Globulin Albumin/Globulin Ratio Lipase Venous Blood Potassium Urine Color Urine Clarity Urine pH Ur Specific [place] Urine Protein Urine Glucose (UA) Urine Ketones Urine Blood Urine Nitrate Urine Bilirubin Urine Urobilinogen Ur Leukocyte Esterase Urine RBC (Auto) Urine Microscopic WBC Blood Type Blood Type Confirm Antibody Screen BBK History Checked - Imaging and Cardiology CT scan - abdomen Status: Image reviewed by me, Report reviewed by me Assessment & Plan - Assessment and Plan (Free Text) Plan: - Keep NPO - IV fluids - Continue antibiotics - Pain control - Urology consultation - Patient will require colectomy, possible colostomy - Will follow
[2018-12-28 00:56] LABS: URINE BILIRUBIN NEGATIVE (NEGATIVE); URINE BLOOD NEGATIVE (NEGATIVE); URINE CLARITY CLEAR (Clear); URINE COLOR YELLOW (YELLOW); URINE GLUCOSE (UA) NEG (NEGATIVE); URINE LEUKOCYTE ESTERASE NEG Leu/uL (Negative); URINE PROTEIN NEGATIVE (NEGATIVE); URINE UROBILINOGEN 0.2-1.0 mg/dL (0.2-1.0)
[2018-12-28] MEDS ORDERED: Morphine 4 MG/ML VIAL IVP PRN ×3 (00:57→01:16)
[2018-12-28] MEDS: Lactated Ringer's 500 ML IV SCH ×6 (01:55→23:20)
--- NOTE | 2018-12-28 02:26 | CP.PCM.HP ---
<Jessica Viveros - Last Filed: 12/28/18 04:01> History of Present Illness - History of Present Illness History of Present Illness: 53 yo M with no known chronic medical problems and history of hemorrhoids and diverticulitis, presented to ED with worsening LLQ abdominal pain x 4 days, associated with nausea and decreased appetite. He describes pain as sharp, 10/10 when moving, and 5/10 at rest; pain is exacerbated by movement and somewhat relieved by rest. Admits to nausea, but denies vomiting. Reports that 3 nights ago (Sunday 12/24) he went to have a BM, passed a lot of gas but was constipated, and then saw some blood when he looked in the toilet. He states he has been blending his food because he feels it is easier on his bowels, but has not been eating much. Pt had recent admission (11/2017) for diverticulitis, was evaluated by gen surg at that time and no surg intervention was recommended. He was discharged with a course of PO antibiotics, states he filled the script and took medication as prescribed; upon review of records he was prescribed Ciprofloxacin 500 mg PO BID x 10 days, Metronidazole 500 mg PO x 10 days, and probiotic daily x 10 days. Pt also relates that he had an upcoming appointment at the clinic but it was in January. ROS: denies dizziness, headache, chest pain, shortness of breath, diarrhea, dysuria, leg swelling. Of note, ED note mentions diarrhea but upon interview, pt states he strains to pass BM. PMD: no PMD Past Med hx: hemorrhoids, diverticulitis; denies chronic conditions Past Surg hx: I & D of abscess to R buttocks by bedside Jun 2018 Social hx: light smoker, 1-2cig/day x 20 yrs; 1 beer 3x a week, denies drug use Family hx: NC Meds: antibiotics course as above; no chronic home meds Allergies: NKDA, peaches, pollen In ED: Vitals: BP 95/69, HR 78, Temp 98.3, R 16, O2 sat 98 on RA CBC: no leukocytosis, grossly unremarkable CMP: grossly unremarkable Lactate 0.5 Lipase 78 UA, Blood culture collected T&S collected Received: 1L NS bolus; second liter started at 150 ml/hr toradol 30 mg IVP Imaging: CT Abd/Pelvis w/ IV contrast: IMPRESSION: 1. Diverticulosis coli of the left hemicolon with associated acute diverticulitis; most pronounced in the distal descending and proximal sigmoid region. 3 x 2 cm abscess within the wall of the distal descending colon. 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 2. Diffuse enteritis. Pt admitted to [facility]. Present on Admission - Present on Admission Any Indicators Present on Admission: No Review of Systems - Review of Systems All systems: reviewed and no additional remarkable complaints except - Constitutional Constitutional: absent: Chills - Cardiovascular Cardiovascular: absent: Chest Pain - Respiratory Respiratory: absent: Dyspnea - Gastrointestinal Gastrointestinal: Abdominal Pain, Change in Bowel Habits, Nausea. absent: Diarrhea, Hematochezia, Vomiting Past Patient History - Past Medical History & Family History Past Medical History?: Yes - Past Social History Smoking Status: Light Smoker < 10 Cigarettes Daily Alcohol: Occasional Drugs: Denies - CARDIAC Hx Cardiac Disorders: Yes - PULMONARY Hx Respiratory Disorders: No - NEUROLOGICAL Hx Neurological Disorder: No - HEENT Hx HEENT Problems: Yes Other/Comment: reports he needs eyeglasses but has not had his eyes checked - RENAL Hx Chronic Kidney Disease: No - ENDOCRINE/METABOLIC Hx Endocrine Disorders: No Hx Diabetes Mellitus Type 2: No - HEMATOLOGICAL/ONCOLOGICAL Hx Blood Disorders: No Hx Human Immunodeficiency Virus (HIV): No - MUSCULOSKELETAL/RHEUMATOLOGICAL Hx Musculoskeletal Disorders: No Hx Falls: No - GASTROINTESTINAL Hx Gastrointestinal Disorders: Yes Hx Diverticulitis: Yes Hx Hemorrhoids: Yes - GENITOURINARY/GYNECOLOGICAL Hx Genitourinary Disorders: Yes Hx Prostate Problems: Yes - PSYCHIATRIC Hx Psychophysiologic Disorder: No Hx Substance Use: No - SURGICAL HISTORY Hx Surgeries: Yes Other/Comment: I & D of abscess to R buttocks by bedside Jun 2018 - ANESTHESIA Hx Anesthesia: Yes Hx Anesthesia Reactions: No Hx Malignant Hyperthermia: No Meds Allergies/Adverse Reactions: Allergies Allergy/AdvReac Type Severity Reaction Status Date / Time Peaches Allergy ITCHING Uncoded 12/27/18 18:55 Physical Exam - Constitutional Additional comments: uncomfortable but not in acute distress - Head Exam Head Exam: NORMAL INSPECTION - Eye Exam Eye Exam: Normal appearance - ENT Exam ENT Exam: Mucous Membranes Moist - Neck Exam Neck exam: Positive for: Full Rom - Respiratory Exam Respiratory Exam: Clear to Auscultation Bilateral, NORMAL BREATHING PATTERN. absent: Respiratory Distress - Cardiovascular Exam Cardiovascular Exam: REGULAR RHYTHM, +S1, +S2 - GI/Abdominal Exam GI & Abdominal Exam: Normal Bowel Sounds, Rebound, Tenderness (LLQ directly with mimimal palpation). absent: Distended - Extremities Exam Extremities exam: Positive for: normal inspection. Negative for: calf tenderness, pedal edema - Back Exam Back exam: NORMAL INSPECTION - Neurological Exam Neurological exam: Alert, Oriented x3 - Psychiatric Exam Psychiatric exam: Normal Affect - Skin Skin Exam: Dry, Warm Results - Vital Signs Recent Vital Signs: Last Vital Signs Temp 97.1 F L 12/28/18 02:01 Pulse 63 12/28/18 02:01 Resp 20 12/28/18 02:01 BP 106/66 12/28/18 02:01 Pulse Ox 98 12/28/18 01:56 - Labs Result Diagrams: 12/27/18 20:20 12/27/18 20:20 Labs: Laboratory Results - last 24 hr 12/27/18 12/27/18 12/27/18 20:20 20:20 20:20 WBC 9.6 RBC 4.66 Hgb 13.3 Hct 40.2 MCV 86.3 MCH 28.6 MCHC 33.2 RDW 13.2 Plt Count 325 MPV 7.6 Neut % (Auto) 68.3 Lymph % (Auto) 20.7 Nye % (Auto) 9.0 Eos % (Auto) 1.2 Baso % (Auto) 0.8 Neut # (Auto) 6.5 Lymph # (Auto) 2.0 Nye # (Auto) 0.9 H Eos # (Auto) 0.1 Baso # (Auto) 0.1 pO2 VBG pH VBG pCO2 VBG HCO3 VBG Total CO2 VBG O2 Sat (Calc) VBG Base Excess VBG Potassium Glucose Lactate FiO2 Crit Value Called To Crit Value Called By Crit Value Read Back Blood Gas Notified Time Sodium 139 Potassium 4.2 Chloride 102 Carbon Dioxide 24 Anion Gap 17 BUN 16 Creatinine 0.8 Est GFR ( Amer) > 60 Est GFR (Non-Af Amer) > 60 Random Glucose 105 Calcium 9.1 Total Bilirubin 0.3 AST 28 ALT 31 Alkaline Phosphatase 69 Total Protein 7.4 Albumin 3.8 Globulin 3.7 Albumin/Globulin Ratio 1.0 Lipase 78 Venous Blood Potassium Urine Color Urine Clarity Urine pH Ur Specific Greer Urine Protein Urine Glucose (UA) Urine Ketones Urine Blood Urine Nitrate Urine Bilirubin Urine Urobilinogen Ur Leukocyte Esterase Urine RBC (Auto) Urine Microscopic WBC Blood Type O POSITIVE Blood Type Confirm Antibody Screen Negative BBK History Checked No verified bt 12/27/18 12/27/18 12/27/18 20:24 20:55 20:55 WBC RBC Hgb Hct MCV MCH MCHC RDW Plt Count MPV Neut % (Auto) Lymph % (Auto) Nye % (Auto) Eos % (Auto) Baso % (Auto) Neut # (Auto) Lymph # (Auto) Nye # (Auto) Eos # (Auto) Baso # (Auto) pO2 24 L 62 H VBG pH 7.32 7.38 VBG pCO2 17 L* 38 L VBG HCO3 11.8 23.0 VBG Total CO2 9.3 L 23.7 VBG O2 Sat (Calc) 48.9 93.8 H VBG Base Excess -14.7 L -2.3 L VBG Potassium 0.9 L* 3.6 Glucose 31 L* D 87 Lactate < 0.3 L 0.5 L FiO2 21.0 21.0 Crit Value Called To gilbert Lao md Crit Value Called By derrek Crit Value Read Back Y Blood Gas Notified Time 2043 Sodium 147.0 136.0 Potassium Chloride 139.0 H 112.0 H Carbon Dioxide Anion Gap BUN Creatinine Est GFR ( Amer) Est GFR (Non-Af Amer) Random Glucose Calcium Total Bilirubin AST ALT Alkaline Phosphatase Total Protein Albumin Globulin Albumin/Globulin Ratio Lipase Venous Blood Potassium 0.9 L* 3.6 Urine Color Urine Clarity Urine pH Ur Specific Greer Urine Protein Urine Glucose (UA) Urine Ketones Urine Blood Urine Nitrate Urine Bilirubin Urine Urobilinogen Ur Leukocyte Esterase Urine RBC (Auto) Urine Microscopic WBC Blood Type Blood Type Confirm O POSITIVE Antibody Screen BBK History Checked 12/28/18 00:53 WBC RBC Hgb Hct MCV MCH MCHC RDW Plt Count MPV Neut % (Auto) Lymph % (Auto) Nye % (Auto) Eos % (Auto) Baso % (Auto) Neut # (Auto) Lymph # (Auto) Nye # (Auto) Eos # (Auto) Baso # (Auto) pO2 VBG pH VBG pCO2 VBG HCO3 VBG Total CO2 VBG O2 Sat (Calc) VBG Base Excess VBG Potassium Glucose Lactate FiO2 Crit Value Called To Crit Value Called By Crit Value Read Back Blood Gas Notified Time Sodium Potassium Chloride Carbon Dioxide Anion Gap BUN Creatinine Est GFR ( Amer) Est GFR (Non-Af Amer) Random Glucose Calcium Total Bilirubin AST ALT Alkaline Phosphatase Total Protein Albumin Globulin Albumin/Globulin Ratio Lipase Venous Blood Potassium Urine Color Yellow Urine Clarity Clear Urine pH 6.0 Ur Specific Greer > 1.060 H Urine Protein Negative Urine Glucose (UA) Neg Urine Ketones Negative Urine Blood Negative Urine Nitrate Negative Urine Bilirubin Negative Urine Urobilinogen 0.2-1.0 Ur Leukocyte Esterase Neg Urine RBC (Auto) 1 Urine Microscopic WBC 1 Blood Type Blood Type Confirm Antibody Screen BBK History Checked Assessment & Plan - Assessment and Plan (Free Text) Assessment: 53 yo M with no chronic conditions, with recent diverticulitis treated with antibiotics; now with recurrent bout of acute diverticulitis with evidence of abscess and developing colovesicular fistula as read on CT abdomen/pelvis. Plan: Acute diverticulitis w/ abscess - Surgery consult - Dr. Blair; recs appreciated - NPO - IV fluids; received 1 L NS in ED; finishing second liter NS on floor; then to start LR @ 125 ml/hr - Zosyn 3.375 gm Q6 hrs; received 1 dose in ED - Flagyl 500 mg Q8 hrs - Zofran 4 mg IVP Q6hs prn - Pain control w/ morphine; pain scale 1 mg Q4h prn mild, 2mg Q4h prn moderate, 4 mg Q6h prn severe - CBC, CMP, Mg, Phos, PT/INR in am - F/u blood cultures Diet - NPO DVT prophylaxis - SCD for now Patient seen/discussed with Dr. Vanegas. <Trav Vanegas - Last Filed: 12/28/18 05:06> Results - Vital Signs Recent Vital Signs: Last Vital Signs Temp 97.1 F L 12/28/18 02:01 Pulse 63 12/28/18 02:01 Resp 20 12/28/18 02:01 BP 106/66 12/28/18 02:01 Pulse Ox 98 12/28/18 01:56 - Labs Result Diagrams: 12/27/18 20:20 12/27/18 20:20 Labs: Laboratory Results - last 24 hr 12/27/18 12/27/18 12/27/18 20:20 20:20 20:20 WBC 9.6 RBC 4.66 Hgb 13.3 Hct 40.2 MCV 86.3 MCH 28.6 MCHC 33.2 RDW 13.2 Plt Count 325 MPV 7.6 Neut % (Auto) 68.3 Lymph % (Auto) 20.7 Nye % (Auto) 9.0 Eos % (Auto) 1.2 Baso % (Auto) 0.8 Neut # (Auto) 6.5 Lymph # (Auto) 2.0 Nye # (Auto) 0.9 H Eos # (Auto) 0.1 Baso # (Auto) 0.1 pO2 VBG pH VBG pCO2 VBG HCO3 VBG Total CO2 VBG O2 Sat (Calc) VBG Base Excess VBG Potassium Glucose Lactate FiO2 Crit Value Called To Crit Value Called By Crit Value Read Back Blood Gas Notified Time Sodium 139 Potassium 4.2 Chloride 102 Carbon Dioxide 24 Anion Gap 17 BUN 16 Creatinine 0.8 Est GFR ( Amer) > 60 Est GFR (Non-Af Amer) > 60 Random Glucose 105 Calcium 9.1 Total Bilirubin 0.3 AST 28 ALT 31 Alkaline Phosphatase 69 Total Protein 7.4 Albumin 3.8 Globulin 3.7 Albumin/Globulin Ratio 1.0 Lipase 78 Venous Blood Potassium Urine Color Urine Clarity Urine pH Ur Specific Greer Urine Protein Urine Glucose (UA) Urine Ketones Urine Blood Urine Nitrate Urine Bilirubin Urine Urobilinogen Ur Leukocyte Esterase Urine RBC (Auto) Urine Microscopic WBC Blood Type O POSITIVE Blood Type Confirm Antibody Screen Negative BBK History Checked No verified bt 12/27/18 12/27/18 12/27/18 20:24 20:55 20:55 WBC RBC Hgb Hct MCV MCH MCHC RDW Plt Count MPV Neut % (Auto) Lymph % (Auto) Nye % (Auto) Eos % (Auto) Baso % (Auto) Neut # (Auto) Lymph # (Auto) Nye # (Auto) Eos # (Auto) Baso # (Auto) pO2 24 L 62 H VBG pH 7.32 7.38 VBG pCO2 17 L* 38 L VBG HCO3 11.8 23.0 VBG Total CO2 9.3 L 23.7 VBG O2 Sat (Calc) 48.9 93.8 H VBG Base Excess -14.7 L -2.3 L VBG Potassium 0.9 L* 3.6 Glucose 31 L* D 87 Lactate < 0.3 L 0.5 L FiO2 21.0 21.0 Crit Value Called To gilbert Lao md Crit Value Called By Silverio anglin Crit Value Read Back Y Blood Gas Notified Time 2043 Sodium 147.0 136.0 Potassium Chloride 139.0 H 112.0 H Carbon Dioxide Anion Gap BUN Creatinine Est GFR ( Amer) Est GFR (Non-Af Amer) Random Glucose Calcium Total Bilirubin AST ALT Alkaline Phosphatase Total Protein Albumin Globulin Albumin/Globulin Ratio Lipase Venous Blood Potassium 0.9 L* 3.6 Urine Color Urine Clarity Urine pH Ur Specific Greer Urine Protein Urine Glucose (UA) Urine Ketones Urine Blood Urine Nitrate Urine Bilirubin Urine Urobilinogen Ur Leukocyte Esterase Urine RBC (Auto) Urine Microscopic WBC Blood Type Blood Type Confirm O POSITIVE Antibody Screen BBK History Checked 12/28/18 00:53 WBC RBC Hgb Hct MCV MCH MCHC RDW Plt Count MPV Neut % (Auto) Lymph % (Auto) Nye % (Auto) Eos % (Auto) Baso % (Auto) Neut # (Auto) Lymph # (Auto) Nye # (Auto) Eos # (Auto) Baso # (Auto) pO2 VBG pH VBG pCO2 VBG HCO3 VBG Total CO2 VBG O2 Sat (Calc) VBG Base Excess VBG Potassium Glucose Lactate FiO2 Crit Value Called To Crit Value Called By Crit Value Read Back Blood Gas Notified Time Sodium Potassium Chloride Carbon Dioxide Anion Gap BUN Creatinine Est GFR ( Amer) Est GFR (Non-Af Amer) Random Glucose Calcium Total Bilirubin AST ALT Alkaline Phosphatase Total Protein Albumin Globulin Albumin/Globulin Ratio Lipase Venous Blood Potassium Urine Color Yellow Urine Clarity Clear Urine pH 6.0 Ur Specific Greer > 1.060 H Urine Protein Negative Urine Glucose (UA) Neg Urine Ketones Negative Urine Blood Negative Urine Nitrate Negative Urine Bilirubin Negative Urine Urobilinogen 0.2-1.0 Ur Leukocyte Esterase Neg Urine RBC (Auto) 1 Urine Microscopic WBC 1 Blood Type Blood Type Confirm Antibody Screen BBK History Checked Attending/Attestation - Attestation I have personally seen and examined this patient.: Yes I have fully participated in the care of the patient.: Yes I have reviewed all pertinent clinical information: Yes Notes (Text): 12/28/18 04:56 I saw, examined and discussed this patient with Dr Viveros. I agree with the assessment and plan outlined above. This is a 53 years old male , discharged on 12/01/18 with 10 days supply of the antibiotics Flagyl and Cipro for treatment of Diverticulitis. he now comes 12/27/18 with the same left lower quadrant pain, blood in stool and CT abdomen/pelvice showing Diverticulitis with Abscess and signs of Colovesicular fistula with diffuse Enteritis. Surgery is consulted Antibiotics Zosyn and Flagyl are started Pain management - IV Fluids - Nothing by mouth. Trav Vanegas MD 12/28/18 05:04
[2018-12-28] MEDS: metroNIDAZOLE 500mg/100ml NS 100 ML IVPB SCH ×3 (02:59→17:56)
[2018-12-28] MEDS: Piperacillin/Tazobact 3.375 GM in Sodium Chloride 0.9% 100 ML IVPB SCH ×4 (04:03→21:37)
[2018-12-28] MEDS ORDERED: Influenza Vaccine (5 YR UP)/PF 60 MCG/0.5 ML SYR IM ONE (06:00)
[2018-12-28] MEDS ORDERED: Influenza Vaccine 60 mcg/0.5 mL SYR (4YR UP) IM ONE (06:00)
[2018-12-28 06:23] LABS: BASO % 0.6 % (0.0-2.0); EOS # 0.1 K/uL (0.0-0.7); EOS % 2.3 % (0.0-4.0); HEMOGLOBIN 11.9 g/dL (12.0-18.0); LYMPH % 31.5 % (20.0-40.0); MEAN CELL VOLUME 86.7 fl (80.0-94.0); MEAN CORPUSCULAR HEMOGLOBIN 28.1 pg (27.0-31.0); MEAN CORPUSCULAR HGB CONC 32.4 g/dL (33.0-37.0); MEAN PLATELET VOLUME 7.6 fl (7.2-11.7); MONO # 0.6 K/uL (0.0-0.8); MONO % 9.4 % (0.0-10.0); NEUT # 3.6 K/uL (1.8-7.0); NEUT % 56.2 % (50.0-75.0); RBC 4.24 Mil/uL (4.40-5.90); RED CELL DISTRIBUTION WIDTH 13.3 % (11.5-14.5); WHITE BLOOD COUNT 6.4 K/uL (4.8-10.8)
[2018-12-28 06:32] LABS: INR 1.1; PROTHROMBIN TIME 12.1 Seconds (9.8-13.1)
[2018-12-28 06:35] LABS: PARTIAL THROMBOPLASTIN TIME 30.9 Seconds (25.6-37.1)
[2018-12-28 06:50] LABS: BLOOD UREA NITROGEN 16 mg/dl (9-20)
[2018-12-28 06:51] LABS: ALB/GLOB RATIO 0.9 (1.0-2.1); ALBUMIN 3.1 g/dL (3.5-5.0); ALT/SGPT 19 U/L (21-72); AST/SGOT 32 U/L (17-59); CALCIUM 8.6 mg/dL (8.4-10.2); GFR NON-AFRICAN AMERICAN > 60
--- NOTE | 2018-12-28 12:42 | CT ---
Date of service: 12/27/2018 PROCEDURE: CT Abdomen and Pelvis with contrast HISTORY: hx of diverticulitis, worsening LLQ pain COMPARISON: 11/30/2018 CT abdomen and pelvis. Summary of findings on the comparison examination:Colonic wall thickening involving the distal left/sigmoid colon with associated inflammatory stranding consistent with acute diverticulitis. TECHNIQUE: Intravenous contrast dose: 95 cc Omnipaque 300. Radiation dose: Total exam DLP = 277.55 mGy-cm. This CT exam was performed using one or more of the following dose reduction techniques: Automated exposure control, adjustment of the mA and/or kV according to patient size, and/or use of iterative reconstruction technique. FINDINGS: LOWER THORAX: Unremarkable. LIVER: Unremarkable. No gross lesion or ductal dilatation. GALLBLADDER AND BILE DUCTS: Unremarkable. PANCREAS: Unremarkable. No gross lesion or ductal dilatation. SPLEEN: Unremarkable. ADRENALS: Unremarkable. No mass. KIDNEYS AND URETERS: Unremarkable. No hydronephrosis. No solid mass. VASCULATURE: Unremarkable. No aortic aneurysm. No atherosclerotic calcification or mural plaque present. BOWEL: Worsening diverticulitis. Geographic distribution is similar to that seen previously. Specifically from the distal descending colon to the sigmoid with sparing of the rectum. Intense inflammatory changes extend to the urinary bladder. APPENDIX: Normal appendix. PERITONEUM: Unremarkable. No free fluid. No free air. LYMPH NODES: Unremarkable. No enlarged lymph nodes. BLADDER: Thickening of the wall of the antral left lateral urinary bladder wall adjacent to intense sigmoid diverticulitis. Air identified within the wall of the urinary bladder. There is no intraluminal/intramural air. REPRODUCTIVE: Unremarkable. BONES: No acute fracture. OTHER FINDINGS: None. IMPRESSION: Worsening diverticulitis/adjacent reactionary cystitis. Phlegmonous changes are most severe in the distal descending colon with possible developing abscess formation. No discrete/drainable collection however identified. Concordant results (preliminary interpretation) provided by [facility]. Procedure Completed: 22:03. Preliminary Report: Dictated and Authenticated: 23:07. Final Interpretation: 12:38. 2018
[2018-12-28] MEDS: Morphine 4 MG/ML VIAL IVP PRN ×2 (15:35→23:09)
[2018-12-28] MEDS ORDERED: Oxycodone/Acetaminophen 5/325 mg Tab PO PRN (17:44)
[2018-12-29] MEDS: metroNIDAZOLE 500mg/100ml NS 100 ML IVPB SCH ×2 (01:39→11:00)
[2018-12-29] MEDS: Lactated Ringer's 500 ML IV SCH ×2 (02:00→06:09)
[2018-12-29] MEDS: Piperacillin/Tazobact 3.375 GM in Sodium Chloride 0.9% 100 ML IVPB SCH ×3 (05:27→16:16)
[2018-12-29 06:04] LABS: BASO % 0.6 % (0.0-2.0); EOS # 0.1 K/uL (0.0-0.7); HEMOGLOBIN 12.3 g/dL (12.0-18.0); LYMPH # 1.3 K/uL (1.0-4.3); MEAN CELL VOLUME 86.8 fl (80.0-94.0); MEAN CORPUSCULAR HEMOGLOBIN 28.7 pg (27.0-31.0); MEAN CORPUSCULAR HGB CONC 33.1 g/dL (33.0-37.0); MEAN PLATELET VOLUME 7.3 fl (7.2-11.7); MONO # 0.6 K/uL (0.0-0.8); MONO % 7.7 % (0.0-10.0); NEUT # 5.5 K/uL (1.8-7.0); NEUT % 73.7 % (50.0-75.0); RBC 4.27 Mil/uL (4.40-5.90); RED CELL DISTRIBUTION WIDTH 13.4 % (11.5-14.5); WHITE BLOOD COUNT 7.5 K/uL (4.8-10.8)
[2018-12-29 06:10] LABS: BLOOD UREA NITROGEN 15 mg/dl (9-20); GFR NON-AFRICAN AMERICAN > 60
--- NOTE | 2018-12-29 07:17 | CP.PCM.PN ---
<Valentin Cain - Last Filed: 12/29/18 07:14> Subjective - Date & Time of Evaluation Date of Evaluation: 12/29/18 Time of Evaluation: 07:14 - Subjective Subjective: Surgery consult note - Dr. Blair Patient seen and evaluated at bedside this AM. States no acute events overnight. Reports mild abdominal pain and mild pain with urination. Denies f/c/sob/cp. Tolerating ice chips but would like to try and eat more as he has an appetite. Denies n/v and has not had any bloody bowel movements. Objective - Vital Signs/Intake and Output Vital Signs (last 24 hours): Temp Pulse Resp BP Pulse Ox 98.0 F 75 18 106/67 95 12/28/18 23:45 12/28/18 23:45 12/28/18 23:45 12/28/18 23:45 12/28/18 23:45 - Medications Medications: Current Medications Acetaminophen (Tylenol 325mg Tab) 650 mg PO Q6 PRN PRN Reason: Fever >100.4 F Lactated Ringer's (Lactated Ringer's 500ml) 500 mls @ 125 mls/hr IV .Q4H SALMA Last Admin: 12/29/18 06:09 Dose: Not Given Piperacillin Sod/Tazobactam (Sod 3.375 gm/ Sodium Chloride) 100 mls @ 100 mls/hr IVPB Q6 SALMA; Protocol Last Admin: 12/29/18 05:27 Dose: 100 mls/hr Metronidazole (Flagyl 500mg/100ml Ns) 100 mls @ 100 mls/hr IVPB Q8H SALMA; Protocol Last Admin: 12/29/18 01:39 Dose: 100 mls/hr Morphine Sulfate (Morphine) 2 mg IVP Q4 PRN PRN Reason: Pain, moderate (4-7) Last Admin: 12/28/18 09:53 Dose: 2 mg Morphine Sulfate (Morphine) 4 mg IVP Q6 PRN PRN Reason: Pain, severe (8-10) Last Admin: 12/28/18 23:09 Dose: 4 mg Ondansetron HCl (Zofran Inj) 4 mg IVP Q6 PRN PRN Reason: Nausea/Vomiting Oxycodone/Acetaminophen (Percocet 5/325 Mg Tab) 1 tab PO Q4 PRN PRN Reason: Pain, Mild (1-3) Stop: 12/31/18 17:45 - Labs Labs: 12/29/18 05:25 12/29/18 05:25 PT 12.1 Seconds (9.8-13.1) 12/28/18 06:00 INR 1.1 12/28/18 06:00 APTT 30.9 Seconds (25.6-37.1) 12/28/18 06:00 - Constitutional Appears: Non-toxic, No Acute Distress - Head Exam Head Exam: NORMOCEPHALIC - Eye Exam Eye Exam: EOMI, Normal appearance. absent: Scleral icterus - ENT Exam ENT Exam: Mucous Membranes Dry - Respiratory Exam Respiratory Exam: NORMAL BREATHING PATTERN - Cardiovascular Exam Cardiovascular Exam: REGULAR RHYTHM, +S1, +S2 - GI/Abdominal Exam GI & Abdominal Exam: Guarding, Soft, Tenderness, Rebound Additional comments: Exquisite left lower quadrant tenderness with focal guarding +rebound tenderness No generalized peritonitis noted - Neurological Exam Neurological Exam: Alert, Awake, Oriented x3 - Psychiatric Exam Psychiatric exam: Normal Mood - Skin Skin Exam: Dry, Intact, Warm Assessment and Plan - Assessment and Plan (Free Text) Assessment: 53M with acute diverticulitis with 2x3cm intraabdominal abscess and evidence of colovesicular fistula Plan: Start on clear liquid diet, if tolerated may advance Plan discussed with patient and all questions and concerns addressed D/w Dr. Blair IV abx IVF Analgesics, anti-emetics prn Plan for OR Tuesday Encourage ambulation Further recs per Dr. Johnnie Cain PGY1 <Lonnie Blair - Last Filed: 12/29/18 10:30> Subjective - Date & Time of Evaluation Time of Evaluation: 09:50 - Subjective Subjective: Patient was seen and examined at the bedside. Agree with resident's note above. Official read on the CT scan shows no colonic abscesses and no colovesicular fistula. Patient states that abdominal pain has improved. Objective - Vital Signs/Intake and Output Vital Signs (last 24 hours): Temp Pulse Resp BP Pulse Ox 98.3 F 74 18 110/74 94 L 12/29/18 08:05 12/29/18 08:05 12/29/18 08:05 12/29/18 08:05 12/29/18 08:05 - Medications Medications: Current Medications Acetaminophen (Tylenol 325mg Tab) 650 mg PO Q6 PRN PRN Reason: Fever >100.4 F Lactated Ringer's (Lactated Ringer's 500ml) 500 mls @ 125 mls/hr IV .Q4H SALMA Last Admin: 12/29/18 06:09 Dose: Not Given Piperacillin Sod/Tazobactam (Sod 3.375 gm/ Sodium Chloride) 100 mls @ 100 mls/hr IVPB Q6 SALMA; Protocol Last Admin: 12/29/18 10:01 Dose: 100 mls/hr Metronidazole (Flagyl 500mg/100ml Ns) 100 mls @ 100 mls/hr IVPB Q8H SALMA; Protocol Last Admin: 12/29/18 01:39 Dose: 100 mls/hr Morphine Sulfate (Morphine) 4 mg IVP Q6 PRN PRN Reason: Pain, severe (8-10) Last Admin: 12/28/18 23:09 Dose: 4 mg Ondansetron HCl (Zofran Inj) 4 mg IVP Q6 PRN PRN Reason: Nausea/Vomiting Oxycodone/Acetaminophen (Percocet 5/325 Mg Tab) 1 tab PO Q4 PRN PRN Reason: Pain, Mild (1-3) Stop: 12/31/18 17:45 Oxycodone/Acetaminophen (Percocet 5/325 Mg Tab) 2 tab PO Q4 PRN PRN Reason: Pain, moderate (4-7) Stop: 01/01/19 07:55 - Labs Labs: 12/29/18 05:25 12/29/18 05:25 PT 12.1 Seconds (9.8-13.1) 12/28/18 06:00 INR 1.1 12/28/18 06:00 APTT 30.9 Seconds (25.6-37.1) 12/28/18 06:00 - GI/Abdominal Exam Additional comments: soft, LLQ tenderness, ND, BS+, no rebound, no guarding Assessment and Plan - Assessment and Plan (Free Text) Assessment: 53 y.o. male with diverticulitis and no evidence of colovesicular fistula on the CT scan Plan: - Clear liquid diet - pain control - IV fluids - Continue with antibiotics - Will hold off on surgical intervention at present time in view that there is no colovesicular fistula and patient is clinically improving - Patient will require colonoscopy in 6 weeks prior to any surgical intervention - repeat labs in am - out of bed and ambulate - Will follow
[2018-12-29] MEDS ORDERED: Oxycodone/Acetaminophen 5/325 mg Tab PO PRN (07:54)
--- NOTE | 2018-12-29 09:07 | CON ---
DATE: 12/28/2018 REASON FOR CONSULTATION: Abdominal pain. HISTORY OF PRESENT ILLNESS: This is a 53-year-old male with history of in the past left lower quadrant pain and discomfort, fevers and chills at home. The had some bowel movements which were bloody, came to the hospital for that as this pain is persistent in the left lower quadrant. Currently lying in bed in mild amount of abdominal distress. PAST MEDICAL HISTORY: As above. PAST SURGICAL HISTORY: As above. MEDICATIONS: Have been reviewed REVIEW OF SYSTEMS: All other systems have been reviewed and negative apart from the HPI. PHYSICAL EXAMINATION: VITAL SIGNS: Here in the hospital are grossly unremarkable. GENERAL: This is a pleasant middle-aged man, lying in bed comfortable, in no apparent distress. HEENT: Head, normocephalic and atraumatic. Eyes, pupils are equally reactive to light bilaterally. No conjunctival pallor or icterus. NECK: Supple. Normal range of motion. No lymphadenopathy appreciated. LUNGS: Coarse breath sounds bilaterally. HEART: S1 and S2. Regular rate and rhythm. No murmurs appreciated. ABDOMEN: Soft and nontender. Bowel sounds present. No rebound. No guarding. There is tenderness and discomfort in the left lower quadrant. RECTAL: Deferred. EXTREMITIES: Pulses present bilaterally. SKIN: Warm, dry, and intact. NEUROLOGIC: A and O x3. LABORATORY DATA: All labs and radiology have been reviewed. WBC of 6.5, hemoglobin of 9.9, hematocrit 36.4. CAT scan is pending acute abscess. ASSESSMENT AND PLAN: This is a 53-year-old male with acute with complication. Antibiotics for now. N.p.o., pain control. Surgical consult appreciated. Thank you for the consult. Humza Woodall MD/ PhD cc: Trav Vanegas MD
--- NOTE | 2018-12-29 09:50 | CP.PCM.PN ---
<Chichester - Last Filed: 12/29/18 11:03> Subjective - Date & Time of Evaluation Date of Evaluation: 12/29/18 Time of Evaluation: 09:15 - Subjective Subjective: Patient seen and examined this morning. No acute overnight events. Afebrile with stable vitals wbc continues to remain WNL States abdominal pain is improving and controlled with pain medication. Denies any nausea, vomiting, diarrhea, hematuria, dysuria, fever, chills or chest pain. Patient reports last night he had soup and tolerated. Objective - Vital Signs/Intake and Output Vital Signs (last 24 hours): Temp Pulse Resp BP Pulse Ox 98.3 F 74 18 110/74 94 L 12/29/18 08:05 12/29/18 08:05 12/29/18 08:05 12/29/18 08:05 12/29/18 08:05 - Medications Medications: Current Medications Acetaminophen (Tylenol 325mg Tab) 650 mg PO Q6 PRN PRN Reason: Fever >100.4 F Lactated Ringer's (Lactated Ringer's 500ml) 500 mls @ 125 mls/hr IV .Q4H SALMA Last Admin: 12/29/18 06:09 Dose: Not Given Piperacillin Sod/Tazobactam (Sod 3.375 gm/ Sodium Chloride) 100 mls @ 100 mls/hr IVPB Q6 SALMA; Protocol Last Admin: 12/29/18 05:27 Dose: 100 mls/hr Metronidazole (Flagyl 500mg/100ml Ns) 100 mls @ 100 mls/hr IVPB Q8H SALMA; Protocol Last Admin: 12/29/18 01:39 Dose: 100 mls/hr Morphine Sulfate (Morphine) 4 mg IVP Q6 PRN PRN Reason: Pain, severe (8-10) Last Admin: 12/28/18 23:09 Dose: 4 mg Ondansetron HCl (Zofran Inj) 4 mg IVP Q6 PRN PRN Reason: Nausea/Vomiting Oxycodone/Acetaminophen (Percocet 5/325 Mg Tab) 1 tab PO Q4 PRN PRN Reason: Pain, Mild (1-3) Stop: 12/31/18 17:45 Oxycodone/Acetaminophen (Percocet 5/325 Mg Tab) 2 tab PO Q4 PRN PRN Reason: Pain, moderate (4-7) Stop: 01/01/19 07:55 - Labs Labs: 12/29/18 05:25 12/29/18 05:25 PT 12.1 Seconds (9.8-13.1) 12/28/18 06:00 INR 1.1 12/28/18 06:00 APTT 30.9 Seconds (25.6-37.1) 12/28/18 06:00 - Constitutional Appears: No Acute Distress - Head Exam Head Exam: NORMAL INSPECTION - Eye Exam Eye Exam: Normal appearance - ENT Exam ENT Exam: Mucous Membranes Moist - Respiratory Exam Respiratory Exam: Clear to Ausculation Bilateral, NORMAL BREATHING PATTERN. absent: Rhonchi, Wheezes - Cardiovascular Exam Cardiovascular Exam: REGULAR RHYTHM, +S1, +S2 - GI/Abdominal Exam GI & Abdominal Exam: Guarding, Soft. absent: Distended Additional comments: Moderate LLQ tenderness (Improved from yesterday) - Extremities Exam Extremities Exam: Full ROM, Normal Capillary Refill, Normal Inspection. absent: Calf Tenderness - Back Exam Back Exam: NORMAL INSPECTION - Neurological Exam Neurological Exam: Alert, Awake, Oriented x3 - Psychiatric Exam Psychiatric exam: Normal Affect, Normal Mood - Skin Skin Exam: Normal Color Assessment and Plan - Assessment and Plan (Free Text) Assessment: 53 yo M with no chronic conditions, with recent diverticulitis treated with antibiotics; now with recurrent bout of acute diverticulitis with evidence of abscess formation on CT abdomen/pelvis. Receiving IV antibiotics. Plan: Acute diverticulitis with intraabdominal abscess formation -CT A/P: IMPRESSION: Worsening diverticulitis/adjacent reactionary cystitis .Phlegmonous changes are most severe in the distal descending colon with possible developing abscess formation. No discrete/drainable collection however identified. -General surgery consult, Dr. Blair, recs appreciated -Will hold off on surgical intervention at present time in view that there is no colovesicular fistula and patient is clinically improving - Patient will require colonoscopy in 6 weeks prior to any surgical intervention -GI consult, Dr. Woodall, f/u recommendation -Urology consult, Dr. Torres: No intervention from urology point of view -c/w LR @125 cc/hr -c/w Zosyn 3.375 gm Q6 hrs (day 2) -Flagyl 500 mg Q8 hrs (day 2) -Zofran 4 mg IVP Q6hs prn -Pain control with morphine and percocet. -Blood cx shows no growth after 24 hours -f/u urine cx and AM labs Diet: -Clear liquid diet DVT prophylaxis - SCD for now Plan discussed with Dr. Calderón <Rickie Calderón - Last Filed: 12/29/18 16:05> Objective - Vital Signs/Intake and Output Vital Signs (last 24 hours): Temp Pulse Resp BP Pulse Ox 97.9 F 76 20 113/71 99 12/29/18 15:36 12/29/18 15:36 12/29/18 15:36 12/29/18 15:36 12/29/18 15:36 - Medications Medications: Current Medications Acetaminophen (Tylenol 325mg Tab) 650 mg PO Q6 PRN PRN Reason: Fever >100.4 F Lactated Ringer's (Lactated Ringer's 500ml) 500 mls @ 125 mls/hr IV .Q4H SALMA Last Admin: 12/29/18 06:09 Dose: Not Given Piperacillin Sod/Tazobactam (Sod 3.375 gm/ Sodium Chloride) 100 mls @ 100 mls/hr IVPB Q6 SALMA; Protocol Last Admin: 12/29/18 10:01 Dose: 100 mls/hr Metronidazole (Flagyl 500mg/100ml Ns) 100 mls @ 100 mls/hr IVPB Q8H SALMA; Protocol Last Admin: 12/29/18 01:39 Dose: 100 mls/hr Morphine Sulfate (Morphine) 4 mg IVP Q6 PRN PRN Reason: Pain, severe (8-10) Last Admin: 12/28/18 23:09 Dose: 4 mg Ondansetron HCl (Zofran Inj) 4 mg IVP Q6 PRN PRN Reason: Nausea/Vomiting Oxycodone/Acetaminophen (Percocet 5/325 Mg Tab) 1 tab PO Q4 PRN PRN Reason: Pain, Mild (1-3) Stop: 12/31/18 17:45 Oxycodone/Acetaminophen (Percocet 5/325 Mg Tab) 2 tab PO Q4 PRN PRN Reason: Pain, moderate (4-7) Stop: 01/01/19 07:55 - Labs Labs: 12/29/18 05:25 12/29/18 05:25 PT 12.1 Seconds (9.8-13.1) 12/28/18 06:00 INR 1.1 12/28/18 06:00 APTT 30.9 Seconds (25.6-37.1) 12/28/18 06:00 Attending/Attestation - Attestation I have personally seen and examined this patient.: Yes I have fully participated in the care of the patient.: Yes I have reviewed all pertinent clinical information, including history, physical exam and plan: Yes Notes (Text): 12/29/18 16:03 Patient seen and examined with resident. Case discussed and agreed with asse ssment and plan of management. Doing fine and probably wouldn't surgery since fistula was not seen in CT scan and patient appeared getting better
[2018-12-29 15:36] VITALS: BP 113/71; PULSE 76; RESP 20; TEMP 97.9; O2SAT 99
--- NOTE | 2018-12-29 19:06 | CP.PCM.PN ---
Subjective - Date & Time of Evaluation Date of Evaluation: 12/29/18 Time of Evaluation: 12:45 - Subjective Subjective: pain improving Objective - Vital Signs/Intake and Output Vital Signs (last 24 hours): Temp Pulse Resp BP Pulse Ox 97.9 F 76 20 113/71 99 12/29/18 15:36 12/29/18 15:36 12/29/18 15:36 12/29/18 15:36 12/29/18 15:36 - Medications Medications: Current Medications Acetaminophen (Tylenol 325mg Tab) 650 mg PO Q6 PRN PRN Reason: Fever >100.4 F Lactated Ringer's (Lactated Ringer's 500ml) 500 mls @ 125 mls/hr IV .Q4H SALMA Last Admin: 12/29/18 06:09 Dose: Not Given Piperacillin Sod/Tazobactam (Sod 3.375 gm/ Sodium Chloride) 100 mls @ 100 mls/hr IVPB Q6 SALMA; Protocol Last Admin: 12/29/18 16:16 Dose: 100 mls/hr Metronidazole (Flagyl 500mg/100ml Ns) 100 mls @ 100 mls/hr IVPB Q8H SALMA; Protocol Last Admin: 12/29/18 11:00 Dose: 100 mls/hr Morphine Sulfate (Morphine) 4 mg IVP Q6 PRN PRN Reason: Pain, severe (8-10) Last Admin: 12/28/18 23:09 Dose: 4 mg Ondansetron HCl (Zofran Inj) 4 mg IVP Q6 PRN PRN Reason: Nausea/Vomiting Oxycodone/Acetaminophen (Percocet 5/325 Mg Tab) 1 tab PO Q4 PRN PRN Reason: Pain, Mild (1-3) Stop: 12/31/18 17:45 Oxycodone/Acetaminophen (Percocet 5/325 Mg Tab) 2 tab PO Q4 PRN PRN Reason: Pain, moderate (4-7) Stop: 01/01/19 07:55 - Labs Labs: 12/29/18 05:25 12/29/18 05:25 PT 12.1 Seconds (9.8-13.1) 12/28/18 06:00 INR 1.1 12/28/18 06:00 APTT 30.9 Seconds (25.6-37.1) 12/28/18 06:00 - Head Exam Head Exam: NORMOCEPHALIC - Neck Exam Neck Exam: Normal Inspection - Respiratory Exam Respiratory Exam: Clear to Ausculation Bilateral, NORMAL BREATHING PATTERN - Cardiovascular Exam Cardiovascular Exam: REGULAR RHYTHM - GI/Abdominal Exam GI & Abdominal Exam: Soft, Tenderness, Normal Bowel Sounds Assessment and Plan - Assessment and Plan (Free Text) Assessment: 53 yo male with complicated diverticulitis abx surgical input
== END 2018-12-29 20:00 | disposition left against medical advice (07) | DRG 244 ==
LOC: H.ER 17:37 → H.ERHOLD 23:41 → H.MEDSURG1 12-28 01:34
PROVIDERS: ADMIT Internal Medicine; ATTEND Internal Medicine
DX: K57.20 Diverticulitis of large intestine with perforation and abscess without bleeding (principal); N30.90 Cystitis, unspecified without hematuria; E78.5 Hyperlipidemia, unspecified; E78.00 Pure hypercholesterolemia, unspecified; N40.0 Benign prostatic hyperplasia without lower urinary tract symptoms; F17.210 Nicotine dependence, cigarettes, uncomplicated; Z23 Encounter for immunization